=== PATIENT | male | born 1960 | race Caucasian/White ===

== ENCOUNTER 2019-03-07 11:25 | Outpatient (REF) | payer OTHER, SELFPAY | END 2019-03-07 11:45 | LOC: LBN 11:25 | PROVIDERS: PCP Emergency Medicine; Visit Provider Family Medicine | DX: N39.0 Urinary tract infection, site not specified (principal) | CPT/HCPCS: 87086 ==

== ENCOUNTER 2019-03-27 12:47 | Outpatient (CLI) | payer OTHER, SELFPAY ==
[2019-03-27 14:35] LABS: Anion Gap 8.6 mmol/L (3-11); BUN 24 mg/dL (7-18); CO2 27.4 mmol/L (21.0-32.0); CREATININE 1.44 mg/dL (0.70-1.30); Calcium 8.9 mg/dL (8.5-10.1); Chloride 106 mmol/L (98-107); Estimated GFR 50.39 (mL/min/1.73m2); Glucose 95 mg/dL (70-100); Potassium 4.5 mmol/L (3.5-5.1); Sodium 142 mmol/L (136-145); Uric Acid 8.7 mg/dL (3.5-7.2)
[2019-03-28 09:47] LABS: PSA, Screening 1.7 ng/ml (0-3.5)
== END 2019-03-27 13:07 ==
PROVIDERS: PCP Emergency Medicine; Visit Provider Emergency Medicine
DX: M10.9 Gout, unspecified (principal); Z12.5 Encounter for screening for malignant neoplasm of prostate
CPT/HCPCS: 36415; 80048; 84153; 84550

== ENCOUNTER 2019-06-18 14:55 | Emergency (ER) | payer OTHER, SELFPAY ==
[2019-06-18 15:01] VITALS: BP 176/86; PULSE 78; RESP 16; TEMP 37.2; O2SAT 99
--- NOTE | 2019-06-18 15:06 | ED.GENADUL_ITS ---
Discharge Plan Disposition Patient Disposition: HOME Condition: Stable Discharge Details Chief Complaint: SOB Clinical Impression: PINO (dyspnea on exertion) Primary Care Provider: Prince Murray ED Provider: Jae Caldera Home Meds and New Rx's Prescriptions: Continued lidocaine [Lidoderm] 5 % adhesive patch,medicated 1 patch TP DAILY RF: 0 magnesium chloride [Mag 64] 64 mg tablet,delayed release (DR/EC) 128 mg PO DAILY RF: 0 Men 50 Plus Multivitamin 300-600-300 mcg tablet 1 tab PO DAILY RF: 0 triamcinolone acetonide 0.025 % cream 1 applic TP BID RF: 0 sertraline 50 mg tablet 25 mg PO DAILY RF: 0 baclofen 10 mg tablet 10 mg PO HS Qty: 90 RF: 3 furosemide 20 mg tablet See Rx Instructions PO DIRECTED Qty: 135 RF: 4 omeprazole 20 mg capsule,delayed release(DR/EC) 20 mg PO DAILY Qty: 90 RF: 0 losartan 50 mg tablet 50 mg PO DAILY Qty: 90 RF: 3 amitriptyline 25 mg tablet 25 mg PO DAILY Qty: 90 RF: 3 indomethacin 50 mg capsule 50 mg PO TID PRN (Reason: gout) Qty: 30 RF: 1 carbidopa-levodopa 25-100 mg tablet 1 tab PO HS Qty: 90 RF: 3 hydromorphone 2 mg tablet 4 mg PO Q6H MDD 4 mg PRN (Reason: pain) Qty: 60 RF: 0 Discharge Instructions Instructions: Dyspnea (ED) Additional Instructions: your cat scan and lab work did not show any significant abnormalities follow up with your primary care provider within 1 week if you feel more ill, have worsening chest pain or difficulty breathing return to the emergency department Medical Decision Making 59 yo male with hx of htn, gout, peripheral neuropathy, who comes in with increased shortness of breath with exertion and some intermittent mild chest pressure, no chest pain now or today. Denies fevers, has had a cough. He arrives in no distress hd stable. Has mild edema of both ankles otherwise no jvd and speaking in full sentences with clear lung sounds . His wells score is moderate will obtain CTA to eval for PE and also pna. HEart score of 3, will send troponin and monitor pt's labs and imaging unremarkable and he remains hd stable. Given over a week of symptoms do not feel second troponin indicated. Will d/c and advised f/u with pcp within a week and return precautions given Differential Diagnosis Differential Diagnosis: nstemi, chf, pe, pna Imaging Data Radiologic Study: Attestation: I personally reviewed and interpreted this imaging study as follows: Imaging: CT Scan Radiologist's impression: TECHNIQUE: Post IV contrast. Axial CT angiography was performed with multi-slice acquisition and multi-planar and/or 3D reconstructions. COMPARISON: No exams were available for comparison FINDINGS: There is no evidence of pulmonary emboli or aortic dissection. No pleural or pericardial effusions or adenopathy are seen. The lungs are clear. No infiltrate or effusion is seen. There are no significant emphysematous or fibrotic changes. The tracheobronchial tree appears intact. There are no thoracic compression fractures. Osteophytes are noted in the thoracic spine. IMPRESSION: Negative chest CT. No evidence of pulmonary emboli or other acute abnormality. Lab Data Lab results reviewed: Yes I reviewed the patient's lab results. ECG Data Attestation: I personally reviewed and interpreted this ECG (s) as follows: Prior ECG tracings: not available for review Interpretation: sinus rhythm, rate of 80, pr 162, no acute st t wave ischemic findings HPI General Mode of arrival: ambulatory . Date/Time Provider Initiated Documentation: 06/18/19 15:00 . Limitations to Documentation: no limitations . Information obtained by: patient . History of Present Illness 59 year old M presents to the emergency department with the chief complaint of shortness of breath, described as moderate, and it has been intermittent. No relieving factors improve symptom(s), Patient did receive the following treatments prior to arrival, none Related Data Home Medications Medication Instructions Recorded Confirmed lidocaine 5 % topical patch 1 patch TP DAILY 03/21/18 06/18/19 magnesium chloride 64 mg 128 mg PO DAILY tab 03/21/18 06/18/19 (magnesium chloride) tablet,delayed release xnqjtezn-nta-bzqrl acid 300 1 tab PO DAILY 03/21/18 06/18/19 mcg-lycopene 600 mcg-lutein 300 mcg tablet triamcinolone acetonide 0.025 % 1 applic TP BID 03/21/18 06/18/19 topical cream baclofen 10 mg tablet 10 mg PO HS #90 tab 08/21/18 06/18/19 furosemide 20 mg tablet See Rx Instructions PO DIRECTED 10/23/18 06/18/19 #135 tab sertraline 50 mg tablet 25 mg PO DAILY tab 03/07/19 06/18/19 omeprazole 20 mg capsule,delayed 20 mg PO DAILY #90 cap 04/08/19 06/18/19 release amitriptyline 25 mg tablet 25 mg PO DAILY #90 tab 04/15/19 06/18/19 losartan 50 mg tablet 50 mg PO DAILY #90 tab 04/15/19 06/18/19 indomethacin 50 mg capsule 50 mg PO TID PRN #30 cap 05/26/19 06/18/19 carbidopa 25 mg-levodopa 100 mg 1 tab PO HS #90 tab 06/02/19 06/18/19 tablet hydromorphone 2 mg tablet 4 mg PO Q6H PRN #60 tab MDD 4 mg 06/17/19 06/18/19 Previous Rx's Medication Instructions Recorded baclofen 10 mg tablet 10 mg PO HS #90 tab 08/21/18 furosemide 20 mg tablet See Rx Instructions PO DIRECTED 10/23/18 #135 tab omeprazole 20 mg capsule,delayed 20 mg PO DAILY #90 cap 04/08/19 release amitriptyline 25 mg tablet 25 mg PO DAILY #90 tab 04/15/19 losartan 50 mg tablet 50 mg PO DAILY #90 tab 04/15/19 indomethacin 50 mg capsule 50 mg PO TID PRN #30 cap 05/26/19 carbidopa 25 mg-levodopa 100 mg 1 tab PO HS #90 tab 06/02/19 tablet hydromorphone 2 mg tablet 4 mg PO Q6H PRN #60 tab MDD 4 mg 06/17/19 Allergies Allergy/AdvReac Type Severity Reaction Status Date / Time amlodipine AdvReac Severe ANKLE/PEDAL Verified 06/18/19 15:05 EDEMA irbesartan [From Avapro] AdvReac Intermediate DIZZINESS Verified 06/18/19 15:05 metoprolol AdvReac Intermediate DIZZINESS Verified 06/18/19 15:05 lisinopril AdvReac Mild COUGH Verified 06/18/19 15:05 General Stated Complaint: SOB LANDON: 2 Review of Systems All systems reviewed & are unremarkable except as noted in HPI and below Constitutional Constitutional: Denies chills, Denies fever(s) and Denies weakness ENT Ears, Nose, Mouth, and Throat: Denies change in voice Respiratory Respiratory: Denies cough Gastrointestinal Gastrointestinal: Denies abdominal pain, Denies nausea and Denies vomiting Musculoskeletal Musculoskeletal: Denies joint swelling Neurologic Neurologic: Denies weakness [facility] Medical History (Updated 03/26/19 @ 16:09 by Prince Murray DO) Asymptomatic gallstones (Acute 08/30/16) Chronic inflammatory demyelinating polyneuritis (Acute) Chronic pain syndrome (Acute 06/20/12) Narcotic VPMS requirements and contract updated 01/09/17 Chronic rhinitis (Acute 06/26/16) Deviated nasal septum (Acute 06/26/16) Essential hypertension (Acute) Fatty liver disease, nonalcoholic (Acute 08/30/16) Gastroesophageal reflux disease with esophagitis (Acute) per EGD-Dr.K. Everett Gout (Chronic) Hereditary peripheral neuropathy (Acute) chronic inflammatory neuropathy see notes [facility] [place] Dr Jayda Alvarado chronic pain Low back pain (Acute) Obesity (Acute) RLS (restless legs syndrome) (Acute 12/10/15) Surgical History (Updated 01/21/19 @ 14:12 by Alejandra Quiroga) knee repair left Family History Mother No problems noted. Father No problems noted. Sister No problems noted. Brother No problems noted. Brother No problems noted. Brother No problems noted. Brother No problems noted. Brother No problems noted. Son No problems noted. Son No problems noted. Social History (Updated 03/21/18 @ 13:20 by Joe Duncan) Smoking/Tobacco Use Status: Never Alcohol Intake: current Alcohol Intake frequency: a few times a month Drug use: Daily Substance use type: marijuana Details: every night, Household members: spouse current occupation: airline reservation agent Duration: 15-30 minutes/day Frequency: daily Special sandra needs: No Exam Const General: no acute distress Orientation: alert HENSD Head: normal to inspection Ears: external ears normal General nose exam: external nose normal Mouth: moist mucous membranes Eyes General: appearance normal, both eyes and all related structures Neck Neck: normal visual inspection Resp Effort & Inspection: normal respiratory effort and able to speak in complete sentences Cardio Rate: regular rate Skin General skin exam: no rashes or lesions noted Neuro General: alert and oriented x3 Extrem General: normal to inspection Psych Mental Status: mental status grossly normal Course Vital Signs Vital signs: Vital Signs Temperature 37.2 C 06/18/19 15:01 Pulse 78 06/18/19 15:01 Respiratory Rate 16 06/18/19 15:01 Blood Pressure 176/86 H 06/18/19 15:01 Pulse Oximetry 99 06/18/19 15:01 Temperature 37.2 C 06/18/19 15:01 Temperature Source Skin 06/18/19 15:01 Pulse 78 06/18/19 15:01 Respiratory Rate 16 06/18/19 15:01 Respiratory Effort Non-Labored 06/18/19 15:01 Blood Pressure 176/86 H 06/18/19 15:01 Blood Pressure Position Sitting 06/18/19 15:01 Pulse Oximetry 99 06/18/19 15:01 Oxygen Delivery Method Room Air 06/18/19 15:01 Oxygen Flow Rate 0 06/18/19 15:01 Pain Level 0 06/18/19 15:01
[2019-06-18 15:27] LABS: Lactate 1.4 mmol/L (0.6-1.4)
[2019-06-18] MEDS: Omnipaque 350 MG/ML 100 ML BTL IJ (15:31)
[2019-06-18] MEDS: Normal Saline Flush 10 ML SYR IVP (15:31)
[2019-06-18 15:32] LABS: Abs Immature Grans 0.02 k/cumm (0.0-0.09); Absolute Basophil Count 0.06 k/cumm (0.0-0.2); Absolute Eosinophil Count 0.11 k/cumm (0.0-0.7); Absolute Lymphocyte Count 1.78 k/cumm (1.2-3.4); Absolute Neutrophil Count 4.03 k/cumm (1.2-6.7); Basophils % 0.9; Eosinophils % 1.7; HCT 40.5 % (40.0-50.0); HGB 13.5 g/dL (13.5-17.5); Immature Grans % 0.3; Lymphocytes % 27.4; Mean Corp. HGB Concentration 33.3 g/dL (32.0-36.0); Mean Corpuscular Hemoglobin 31.8 pg (27.0-33.0); Mean Corpuscular Volume 95.3 fL (80-95); Mean Platelet Volume 9.1 fL (8.0-11.0); Monocytes % 7.7; Platelet Count 226 x1000/uL (130-400); RBC 4.25 m/cumm (4.50-6.00); RBC Distribution Width 13.5 % (11.8-14.1)
[2019-06-18 15:41] LABS: PTT Activated 25.4 sec (21.0-31.4); Prothrombin Time 9.9 sec (9.3-11.0)
--- NOTE | 2019-06-18 15:42 | DI.CT_ITS ---
EXAM: CT CHEST PE CTA CLINICAL HISTORY: shortness of breath TECHNIQUE: Post IV contrast. Axial CT angiography was performed with multi-slice acquisition and mu lti-planar and/or 3D reconstructions. COMPARISON: No exams were available for comparison FINDINGS: There is no evidence of pulmonary emboli or aortic dissection. No pleural or pericardial effusions o r adenopathy are seen. The lungs are clear. No infiltrate or effusion is seen. There are no signifi cant emphysematous or fibrotic changes. The tracheobronchial tree appears intact. There are no thor acic compression fractures. Osteophytes are noted in the thoracic spine. IMPRESSION: Negative chest CT. No evidence of pulmonary emboli or other acute abnormality.
[2019-06-18 16:10] LABS: ALT 34 U/L (16-63); AST 20 U/L (15-37); Alkaline Phosphatase 94 U/L (46-116); Anion Gap 10.2 mmol/L (3-11); BUN 18 mg/dL (7-18); Bilirubin, Total 0.4 mg/dL (0.2-1.0); CO2 27.8 mmol/L (21.0-32.0); Calcium 9.3 mg/dL (8.5-10.1); Chloride 103 mmol/L (98-107); Estimated GFR 51.87 (mL/min/1.73m2); Glucose 99 mg/dL (74-106); Magnesium 1.9 mg/dL (1.8-2.4); NT-proBNP 96 pg/mL (<300); Potassium 4.2 mmol/L (3.5-5.1); Sodium 141 mmol/L (136-145); TSH (W/Ref FT4) 2.23 uIU/mL (0.36-3.74); Total Protein 7.8 g/dL (6.4-8.2)
[2019-06-18 16:15] LABS: Troponin I < 0.05 ng/Ml (<0.06)
--- NOTE | 2019-06-18 17:18 | NUR.NOTE ---
Nursing Note: Referral faxed to PCP for follow up. Zaida Mcnair.
== END 2019-06-18 16:35 | disposition home or self-care (01) ==
PROVIDERS: Emergency Provider Emergency Medicine; PCP Emergency Medicine
DX: R06.09 Other forms of dyspnea (principal); I10 Essential (primary) hypertension
CPT/HCPCS: 36415; 71275; 80053; 87449; 93005; 99285; 83605; 83735; 83880; 84443; 84484; 85025; 85610; 85730; 93010; 99284; J3490

== ENCOUNTER 2019-06-25 01:37 | Outpatient (CLI) | payer OTHER, SELFPAY ==
[2019-06-25 14:24] LABS: ESR 19 mm/hr (1-20)
[2019-06-25 14:25] LABS: D-Dimer 569 ng/mlFEU (<500)
[2019-06-25 14:30] LABS: C-Reactive Protein 0.92 mg/dL (0.0-0.3)
[2019-06-28 12:00] LABS: Testosterone, Free 7.17 ng/dL (3.87-14.7); Testosterone, Total 224 ng/dL (240-950)
== END 2019-06-25 01:57 ==
PROVIDERS: PCP Emergency Medicine; Visit Provider Emergency Medicine
DX: R53.83 Other fatigue (principal); R06.09 Other forms of dyspnea
CPT/HCPCS: 36415; 84402; 84403; 85652; 85379; 86140

== ENCOUNTER 2019-06-25 13:07 | Outpatient (CLI) | payer OTHER, SELFPAY | END 2019-06-25 13:27 | PROVIDERS: PCP Emergency Medicine; Visit Provider Emergency Medicine | DX: R06.09 Other forms of dyspnea (principal); I47.1 Supraventricular tachycardia; I49.3 Ventricular premature depolarization | CPT/HCPCS: 93225 ==

== ENCOUNTER 2019-06-27 09:08 | Outpatient (CLI) | payer OTHER, SELFPAY ==
--- NOTE | 2019-06-27 09:49 | W.HOLTRPT ---
Date of service: 06/27/19 Time of Service: 09:49 Holter Monitor Report Holter Monitor Note: This is a 24-hour Holter monitor ordered for the indication of dyspnea. ?The patient was in normal sinus rhythm for the majority of the recording time. ?There was one episode of supraventricular tachycardia that lasted 3 beats. There were rare (less than 1%) premature atrial contractions. ?There were 87 episodes of ventricular tachycardia with the longest lasting 24 beats. ?There were 13 runs of accelerated idioventricular rhythm with the longest lasting 21 beats at a rate of 165 bpm. ?There were occasional (2.4%) single ventricular ectopic beats and multiple couplets and triplets. ?There were no episodes of atrial fibrillation, no pauses greater than 3 seconds and no evidence of high degree heart block. ?Patient diary event was associated with a single PVC.
== END 2019-06-27 09:28 ==
PROVIDERS: PCP Emergency Medicine; Visit Provider Emergency Medicine
DX: R06.09 Other forms of dyspnea (principal); I47.1 Supraventricular tachycardia; I49.3 Ventricular premature depolarization
CPT/HCPCS: 93226

== ENCOUNTER 2019-06-27 14:09 | Emergency (ER) | payer OTHER, SELFPAY ==
[2019-06-27] VITALS (57 sets, daily range): BP systolic 128–172; BP diastolic 72–106; PULSE 64–88; RESP 10–24; TEMP 36.7; O2SAT 97–100
--- NOTE | 2019-06-27 14:59 | ED.GENADUL_ITS ---
Discharge Plan Disposition Patient Disposition: HOME Condition: Stable Discharge Details Chief Complaint: Palpitatns Clinical Impression: PINO (dyspnea on exertion) Primary Care Provider: Prince Murray ED Provider: Jae Caldera Home Meds and New Rx's Prescriptions: Continued lidocaine [Lidoderm] 5 % adhesive patch,medicated 1 patch TP DAILY RF: 0 magnesium chloride [Mag 64] 64 mg tablet,delayed release (DR/EC) 128 mg PO DAILY RF: 0 Men 50 Plus Multivitamin 300-600-300 mcg tablet 1 tab PO DAILY RF: 0 triamcinolone acetonide 0.025 % cream 1 applic TP BID RF: 0 sertraline 50 mg tablet 25 mg PO DAILY RF: 0 baclofen 10 mg tablet 10 mg PO HS Qty: 90 RF: 3 furosemide 20 mg tablet See Rx Instructions PO DIRECTED Qty: 135 RF: 4 omeprazole 20 mg capsule,delayed release(DR/EC) 20 mg PO DAILY Qty: 90 RF: 0 losartan 50 mg tablet 50 mg PO DAILY Qty: 90 RF: 3 amitriptyline 25 mg tablet 25 mg PO DAILY Qty: 90 RF: 3 indomethacin 50 mg capsule 50 mg PO TID PRN (Reason: gout) Qty: 30 RF: 1 carbidopa-levodopa 25-100 mg tablet 1 tab PO HS Qty: 90 RF: 3 hydromorphone 2 mg tablet 4 mg PO Q6H MDD 4 mg PRN (Reason: pain) Qty: 60 RF: 0 Discharge Instructions Additional Instructions: We have ordered an outpatient stress test as we discussed. Dr. Murray has plans to see you in the office on Sunday. Continue all regular medications. Avoid strenuous activity as we discussed. Return to the emergency department if develop chest pain, recurrent difficulty breathing, palpitations, lightheadedness, or any other acute concerns. Discharge Data Discharge Date/Time-TO BE ENTERED AT DEPARTURE: 06/27/19 20:50 Medical Decision Making <Sudhakar Adams MD - Last Filed: 06/28/19 08:08> 59-year-old male who was referred by Dr. Murray. The patient's had greater than 1 month of intermittent episodes of dyspnea on exertion. This initially resulted in an emergency department evaluation on June [address] scan of the chest and a normal troponin. Patient separately had an outpatient Holter monitor on June 27 which revealed 87 episodes of nonsustained ventricular tachycardia and 13 episodes of accelerated idioventricular rhythm. Dr. Murray discussed the case with Dr. Reyes of cardiology, and the recommendation for an ischemic work-up including probable stress test. I also discussed the case with Dr. Reyes who stated that if the ischemic work-up was negative, the patient would be a good candidate for initiation of an AV thor blocking agent. He did not feel the patient required mandated admission this weekend if the ED work-up was negative. I did discuss the case also with Dr. Salazar of [facility]. She feels the patient is best served by serial enzymes in the ED and referral for outpatient stress testing. Currently at this time he is chest pain-free, no dyspnea, with unremarkable vital signs. He remains in a sinus rhythm on the monitor in the emergency department. Diagnostic work-up initiated. His CBC reveals a white count of 7, hematocrit 42, platelets 248. Sodium 142, potassium 3.9, chloride 104, bicarb 29. BUN 19, creatinine 1.3. Troponin is negative. Magnesium slightly low at 1.7 and supplemented in the emergency department. Chest x-ray without acute pulmonary findings. Patient observed on a quality assurance monitor chassis and repeat troponin obtained at 3 hrs and negative. Will obtain 6 hr troponin and case will be signed out to oncoming physician, Dr Caldera pending review of final lab test. I have ordered the patients stress test with specific request for Sunday scheduling as Dr Murray will see him in the office on Sunday. <Jae Caldera MD - Last Filed: 06/27/19 20:42> pt signed out to me pending 6 hour troponin which is negative. Will d/c home and is having outpt stress test next week, denies any pain now HPI <Sudhakar Adams MD - Last Filed: 06/28/19 08:08> General Mode of arrival: ambulatory . Date/Time Provider Initiated Documentation: 06/27/19 14:16 . Limitations to Documentation: no limitations . Information obtained by: patient . History of Present Illness 59 year old M presents to the emergency department with the chief complaint of Abnormal Holter monitor, intermittent dyspnea on exertion for > 1 month, described as moderate, Quality is described as dull, and is localized to the chest. Patient reports no radiation. Patient started experiencing this minute(s) and it has been intermittent and now resolved. No relieving factors improve symptom(s), No exacerbating factors reported . Patient notes shortness of breath; denies chest pain and syncope. Patient did receive the following treatments prior to arrival, none Related Data Home Medications Medication Instructions Recorded Confirmed lidocaine 5 % topical patch 1 patch TP DAILY 03/21/18 06/27/19 magnesium chloride 64 mg 128 mg PO DAILY tab 03/21/18 06/27/19 (magnesium chloride) tablet,delayed release mzkzyvwi-soj-uruuy acid 300 1 tab PO DAILY 03/21/18 06/27/19 mcg-lycopene 600 mcg-lutein 300 mcg tablet triamcinolone acetonide 0.025 % 1 applic TP BID 03/21/18 06/24/19 topical cream baclofen 10 mg tablet 10 mg PO HS #90 tab 08/21/18 06/27/19 furosemide 20 mg tablet See Rx Instructions PO DIRECTED 10/23/18 06/27/19 #135 tab sertraline 50 mg tablet 25 mg PO DAILY tab 03/07/19 06/24/19 omeprazole 20 mg capsule,delayed 20 mg PO DAILY #90 cap 04/08/19 06/24/19 release amitriptyline 25 mg tablet 25 mg PO DAILY #90 tab 04/15/19 06/27/19 losartan 50 mg tablet 50 mg PO DAILY #90 tab 04/15/19 06/27/19 indomethacin 50 mg capsule 50 mg PO TID PRN #30 cap 05/26/19 06/27/19 carbidopa 25 mg-levodopa 100 mg 1 tab PO HS #90 tab 06/02/19 06/27/19 tablet hydromorphone 2 mg tablet 4 mg PO Q6H PRN #60 tab MDD 4 mg 06/17/19 06/27/19 Previous Rx's Medication Instructions Recorded baclofen 10 mg tablet 10 mg PO HS #90 tab 08/21/18 furosemide 20 mg tablet See Rx Instructions PO DIRECTED 10/23/18 #135 tab omeprazole 20 mg capsule,delayed 20 mg PO DAILY #90 cap 04/08/19 release amitriptyline 25 mg tablet 25 mg PO DAILY #90 tab 04/15/19 losartan 50 mg tablet 50 mg PO DAILY #90 tab 04/15/19 indomethacin 50 mg capsule 50 mg PO TID PRN #30 cap 05/26/19 carbidopa 25 mg-levodopa 100 mg 1 tab PO HS #90 tab 06/02/19 tablet hydromorphone 2 mg tablet 4 mg PO Q6H PRN #60 tab MDD 4 mg 06/17/19 Allergies Allergy/AdvReac Type Severity Reaction Status Date / Time amlodipine AdvReac Severe ANKLE/PEDAL Verified 06/27/19 14:17 EDEMA irbesartan [From Avapro] AdvReac Intermediate DIZZINESS Verified 06/27/19 14:17 metoprolol AdvReac Intermediate DIZZINESS Verified 06/27/19 14:17 lisinopril AdvReac Mild COUGH Verified 06/27/19 14:17 General Stated Complaint: Palpitatns LANDON: 3 Review of Systems <Sudhakar Adams MD - Last Filed: 06/28/19 08:08> Narrative: No fall or injury, denies chest pain. No palpitations today. He states that he has otherwise been well. 6 systems reviewed and otherwise negative. PFSH <Sudhakar Adams MD - Last Filed: 06/28/19 08:08> Medical History Asymptomatic gallstones (Acute 08/30/16) Chronic inflammatory demyelinating polyneuritis (Acute) Chronic pain syndrome (Acute 06/20/12) Narcotic VPMS requirements and contract updated 01/09/17 Chronic rhinitis (Acute 06/26/16) Deviated nasal septum (Acute 06/26/16) Essential hypertension (Acute) Fatty liver disease, nonalcoholic (Acute 08/30/16) Gastroesophageal reflux disease with esophagitis (Acute) per EGD-Dr.K. Everett Gout (Chronic) Hereditary peripheral neuropathy (Acute) chronic inflammatory neuropathy see notes [facility] [place] Jayda Alvarado chronic pain Low back pain (Acute) Obesity (Acute) RLS (restless legs syndrome) (Acute 12/10/15) Surgical History knee repair left Family History Mother No problems noted. Father No problems noted. Sister No problems noted. Brother No problems noted. Brother No problems noted. Brother No problems noted. Brother No problems noted. Brother No problems noted. Son No problems noted. Son No problems noted. Social History (Updated 03/21/18 @ 13:20 by Joe Duncan) Smoking/Tobacco Use Status: Never Alcohol Intake: current Alcohol Intake frequency: a few times a month Drug use: Daily Substance use type: marijuana Details: every night, Household members: spouse current occupation: ramp service agent Duration: 15-30 minutes/day Frequency: daily Special sandra needs: No Do you feel safe at home: Yes Do you feel safe in your relationship?: Yes Exam <Sudhakar Adams MD - Last Filed: 06/28/19 08:08> Narrative Exam Narrative: GEN: awake, alert, oriented 3. Pleasant, well groomed, interactive. HEAD: Normocephalic, atraumatic ENT: Mucous membranes moist, oropharynx unremarkable, External ear exam unremarkable EYES: PERRL, EOMI NECK: Full ROM, no BRET, no menigismus CHEST/RESP: Nontender, clear to auscultation bilateral, no wheeze/rhonchi/rales CARDIOVASCULAR: RRR, question soft blowing systolic murmur, rub eri. 2+ Rad pulse bilateral ABDOMEN: Soft, nontender, no mass. +Bowel sounds EXT: Full ROM, no edema, no rash Neuro: Grossly normal neurologic exam, conversant, interactive. Psych: Speech fluent, thoughts congruent, affect normal Course <Sudhakar Adams MD - Last Filed: 06/28/19 08:08> Vital Signs Vital signs: Vital Signs Pulse 88 06/27/19 14:12 Respiratory Rate 18 06/27/19 14:12 Pulse 76 06/27/19 14:19 Pulse 78 06/27/19 14:20 Respiratory Rate 18 06/27/19 14:20 Respiratory Effort 06/27/19 14:16 Blood Pressure 143/89 H 06/27/19 14:19 Blood Pressure Mean 100 06/27/19 14:19 Blood Pressure Position Supine 06/27/19 14:12 Pulse Oximetry 99 06/27/19 14:20 Oxygen Delivery Method Room Air 06/27/19 14:12 Oxygen Flow Rate 0 06/27/19 14:12 Pain Level 0 06/27/19 14:12 Sign Out <Sudhakar Adams MD - Last Filed: 06/28/19 08:08> Sign Out Data: Sign Out Comment: Followup 6hr troponin Last updated by Sudhakar Adams MD at 06/27/19 19:12
[2019-06-27] MEDS: Normal Saline 1,000 ML 125 ML IV (15:05)
[2019-06-27 15:09] LABS: Abs Immature Grans 0.02 k/cumm (0.0-0.09); Absolute Basophil Count 0.04 k/cumm (0.0-0.2); Absolute Eosinophil Count 0.13 k/cumm (0.0-0.7); Absolute Lymphocyte Count 1.93 k/cumm (1.2-3.4); Absolute Monocyte Count 0.51 k/cumm (0.11-0.7); Absolute Neutrophil Count 5.08 k/cumm (1.2-6.7); Basophils % 0.5; Eosinophils % 1.7; HCT 42.3 % (40.0-50.0); Immature Grans % 0.3; Mean Corp. HGB Concentration 33.1 g/dL (32.0-36.0); Mean Corpuscular Hemoglobin 31.6 pg (27.0-33.0); Mean Corpuscular Volume 95.5 fL (80-95); Mean Platelet Volume 9.3 fL (8.0-11.0); Monocytes % 6.6; Neutrophils % 65.9; Platelet Count 248 x1000/uL (130-400); RBC 4.43 m/cumm (4.50-6.00); RBC Distribution Width 13.5 % (11.8-14.1); White Blood Cell Count 7.71 k/cumm (4.4-10.8)
[2019-06-27 15:27] LABS: ALT 37 U/L (16-63); AST 21 U/L (15-37); Albumin 4.1 g/dL (3.4-5.0); Alkaline Phosphatase 93 U/L (46-116); Anion Gap 8.5 mmol/L (3-11); BUN 19 mg/dL (7-18); Bilirubin, Total 0.3 mg/dL (0.2-1.0); CO2 29.5 mmol/L (21.0-32.0); CREATININE 1.38 mg/dL (0.70-1.30); Calcium 9.2 mg/dL (8.5-10.1); Chloride 104 mmol/L (98-107); Estimated GFR 52.74 (mL/min/1.73m2); Glucose 91 mg/dL (74-106); Magnesium 1.7 mg/dL (1.8-2.4); Potassium 3.9 mmol/L (3.5-5.1); Sodium 142 mmol/L (136-145); Total Protein 7.9 g/dL (6.4-8.2)
[2019-06-27 15:35] LABS: Troponin I < 0.05 ng/Ml (<0.06)
--- NOTE | 2019-06-27 15:38 | DI.RAD_ITS ---
EXAM: XR CHEST 2V PA LATERAL CLINICAL HISTORY: palpitations. TECHNIQUE: 2D digital imaging was performed. COMPARISON: CHEST 2 VIEWS PA,LAT from 11/12/2016 FINDINGS: LUNGS: Clear. No pleural abnormality seen. HEART: Normal. MEDIASTINUM: Normal. OTHER FINDINGS:Normal. IMPRESSION: No acute pulmonary findings.
[2019-06-27] MEDS: MAGNESIUM SULFATE 2 GM/50 ML BAG IVPB (16:20)
[2019-06-27 17:59] LABS: Troponin I < 0.05 ng/Ml (<0.06)
[2019-06-27 20:21] LABS: Troponin I < 0.05 ng/Ml (<0.06)
== END 2019-06-27 20:50 | disposition home or self-care (01) ==
PROVIDERS: Emergency Medicine; Emergency Provider Emergency Medicine; PCP Emergency Medicine
DX: R06.09 Other forms of dyspnea (principal); I47.2 Ventricular tachycardia; I10 Essential (primary) hypertension
CPT/HCPCS: 80053; 93005; 96365; 96366; 99285; 71046; 83735; 84484; 85025; 93010

== ENCOUNTER 2019-07-21 08:15 | Outpatient (CLI) | payer OTHER, SELFPAY | END 2019-07-21 08:35 | PROVIDERS: PCP Emergency Medicine; Visit Provider Emergency Medicine | DX: I47.1 Supraventricular tachycardia (principal); I49.1 Atrial premature depolarization | CPT/HCPCS: 93225 ==

== ENCOUNTER 2019-07-22 10:13 | Outpatient (CLI) | payer OTHER, SELFPAY ==
--- NOTE | 2019-07-24 10:03 | W.HOLTRPT ---
Date of service: 07/24/19 Time of Service: 10:03 Holter Monitor Report Holter Monitor Note: This is a 24-hour Holter monitor ordered for the indication of SVT. ?Patient was in normal sinus rhythm for the majority of the recording. ?There were 0 episodes of SVT recorded and rare (less than 1%) premature atrial contractions. ?There were 2 episodes of what appears to be ventricular tachycardia versus SVT with bundle branch block with the longest lasting 5 beats at a rate of 130. ?There were occasional (1.1%) single ventricular ectopic beats and 2 couplets. ?There were no episodes of atrial fibrillation, no pauses greater than 3 seconds and no evidence of high degree heart block. ?Compared to remote monitor from 1 month ago, the degree of ectopy has significantly decreased.
== END 2019-07-22 10:33 ==
PROVIDERS: PCP Emergency Medicine; Visit Provider Emergency Medicine
DX: I47.1 Supraventricular tachycardia (principal); I49.1 Atrial premature depolarization
CPT/HCPCS: 93226

== ENCOUNTER 2019-08-04 01:14 | Outpatient (CLI) | payer OTHER, SELFPAY ==
[2019-08-04 07:42] LABS: Bilirubin Small (Negative); Blood Negative (Negative); Clarity Sl Cloudy (Clear); Glucose Negative (Negative); Ketones Negative (Negative); Leukocyte Esterase Negative (Negative); Nitrite Negative (Negative); Specific Gravity 1.025 (1.005-1.025); Urobilinogen 0.2 EU/dL (Up TO 0.2)
[2019-08-04 07:54] LABS: Hemoglobin A1C 5.1 % (3.8-5.6)
[2019-08-04 07:57] LABS: Bacteria Moderate HPF (Negative); Crystals Negative HPF (Negative); Epithelial Cells Many HPF (Negative); Mucus Trace (Negative); RBC 0-2 HPF (0-2); WBC 0-2 HPF (0-5)
[2019-08-04 07:58] LABS: C & S Indicated? No/Sq. Contamination; Casts 3-5 Hyaline LPF (Negative)
[2019-08-04 08:52] LABS: BUN 24 mg/dL (7-18); CREATININE 1.52 mg/dL (0.70-1.30); Calcium 9.7 mg/dL (8.5-10.1); Chloride 105 mmol/L (98-107); Estimated GFR 47.17 (mL/min/1.73m2); Glucose 91 mg/dL (74-106); Magnesium 1.9 mg/dL (1.8-2.4); Potassium 4.4 mmol/L (3.5-5.1); Sodium 144 mmol/L (136-145)
[2019-08-05 11:00] LABS: PSA, Screening 1.7 ng/mL (0.0-3.5)
== END 2019-08-04 01:34 ==
PROVIDERS: PCP Emergency Medicine; Visit Provider Emergency Medicine
DX: I10 Essential (primary) hypertension (principal); R35.0 Frequency of micturition; R30.0 Dysuria; Z12.5 Encounter for screening for malignant neoplasm of prostate
CPT/HCPCS: 36415; 80048; 84153; 81003; 81015; 83036; 83735

== ENCOUNTER 2019-08-19 08:38 | Outpatient (CLI) | payer OTHER, SELFPAY | END 2019-08-19 08:58 | PROVIDERS: PCP Emergency Medicine; Visit Provider Internal Medicine Cardiovascular Disease | DX: I47.1 Supraventricular tachycardia (principal); I10 Essential (primary) hypertension | CPT/HCPCS: 93005; 93010 ==

== ENCOUNTER 2020-01-30 03:57 | Outpatient (CLI) | payer OTHER, SELFPAY | END 2020-01-30 04:17 | PROVIDERS: PCP Emergency Medicine; Visit Provider Emergency Medicine | DX: R10.9 Unspecified abdominal pain (principal) | CPT/HCPCS: 93225 ==

== ENCOUNTER 2020-02-02 02:23 | Outpatient (CLI) | payer OTHER, SELFPAY ==
[2020-02-02 09:33] LABS: Abs Immature Grans 0.01 k/cumm (0.0-0.09); Absolute Basophil Count 0.02 k/cumm (0.0-0.2); Absolute Eosinophil Count 0.13 k/cumm (0.0-0.7); Absolute Lymphocyte Count 1.18 k/cumm (1.2-3.4); Absolute Monocyte Count 0.31 k/cumm (0.11-0.7); Absolute Neutrophil Count 4.18 k/cumm (1.2-6.7); Basophils % 0.3; Eosinophils % 2.2; HCT 39.3 % (40.0-50.0); Immature Grans % 0.2 %; Lymphocytes % 20.2; Mean Corp. HGB Concentration 33.1 g/dL (32.0-36.0); Mean Corpuscular Hemoglobin 31.6 pg (27.0-33.0); Mean Corpuscular Volume 95.6 fL (80-95); Mean Platelet Volume 9.7 fL (8.0-11.0); Monocytes % 5.3; Neutrophils % 71.8; Platelet Count 196 x1000/uL (130-400); RBC 4.11 m/cumm (4.50-6.00); RBC Distribution Width 13.5 % (11.8-14.1); White Blood Cell Count 5.83 k/cumm (4.4-10.8)
[2020-02-02 09:45] LABS: Amylase 34 U/L (25-115); C-Reactive Protein 1.05 mg/dL (0.0-0.3); Lipase 97 U/L (73-393)
== END 2020-02-02 02:43 ==
PROVIDERS: PCP Emergency Medicine; Visit Provider Emergency Medicine
DX: R10.9 Unspecified abdominal pain (principal)
CPT/HCPCS: 36415; 83690; 82150; 85025; 86140

== ENCOUNTER 2020-02-02 11:50 | Outpatient (CLI) | payer OTHER, SELFPAY ==
--- NOTE | 2020-02-02 14:48 | W.HOLTRPT ---
Date of service: 02/02/20 Time of Service: 14:48 Holter Monitor Report Referring Provider:: Trevor Indications:: NSVT Holter Monitor Note: There is a 24-hour Holter monitor ordered for indication of NSVT. ?The patient was in normal sinus rhythm for the majority recording with a mean heart rate of 61 bpm. ?There were 0 episodes of SVT and rare PACs. ?There are no episodes of VT and rare (0.5%) single ventricular ectopic beats. ?There were no episodes of atrial fibrillation, no pauses in 3 seconds and no evidence of high degree heart block. ?Patient diary events were associated with sinus rhythm, sinus tachycardia and PVCs
== END 2020-02-02 12:10 ==
PROVIDERS: PCP Emergency Medicine; Visit Provider Emergency Medicine
DX: I47.1 Supraventricular tachycardia (principal); I49.3 Ventricular premature depolarization; I49.1 Atrial premature depolarization
CPT/HCPCS: 93226

== ENCOUNTER 2020-02-05 00:07 | Outpatient (CLI) | payer OTHER, SELFPAY ==
--- NOTE | 2020-02-05 07:45 | DI.US_ITS ---
EXAM: US ABDOMEN CLINICAL HISTORY: abd AND EPIGASTRIC PAIN,R10.13 TECHNIQUE: Ultrasound abdomen performed using standard protocol. COMPARISON: CT CT CHEST PE CTA from 06/18/2019 FINDINGS: ABDOMINAL AORTA AND IVC: Visualized portions normal caliber. PANCREAS: Normal where visualized. LIVER: Diffuse increased echogenicity consistent with fatty infiltration. Hepatopedal flow in the Po rtal Vein. 16.3 cm in length. GALLBLADDER: Cholelithiasis. No evidence of wall thickening. No pericholecystic fluid identified. BILIARY SYSTEM: Common bile duct measures 3.5 mm. No intrahepatic biliary ductal dilation. CUENCA'S SIGN: Negative. KIDNEYS: Kidneys are symmetric in size. No evidence of renal calculi. No evidence of hydronephrosis. Focal prominence of the mid right renal cortex. Underlying mass cannot be excluded. The area in que stion measures 4 cm x 2.8 cm. SPLEEN: Not enlarged. 12.5 cm in length. ASCITES: None seen. IMPRESSION: 1. Focal cortical prominence seen in the mid right kidney. This may represent normal renal tissue bu t underlying mass should be excluded. CT scan of the abdomen with contrast should be considered for further evaluation. 2. Hepatic steatosis. 3. Cholelithiasis. No biliary ductal dilatation. DATA REPOSITORY:
--- NOTE | 2020-02-05 08:00 | DI.NM_ITS ---
APPROVED REPORT Exam: Pharmacologic Patient Location: Out-Patient Room/Bed: Stress Nurse: Mia Seals RN BMI: 33.47 Baseline Rhythm: Sinus Bradycardia Indications: Chest pain. Presyncope. PSVT. Medical History Medical History: PSVT. Aortic Stenosis. Allergies: Lisinopril. Amlodipine. Amitriptyline. Baclofen. Avapro. Cardiac Risk Factors: HTN, Hyperlipidemia, FHX of CAD Exercise History: Indeterminate Physical Disabilities: Legs Lung Sounds: Clear to auscultation Heart Sounds: Regular Stress Test Details Test: Pharmacologic stress testing performed using 0.4 mg of regadenoson per 5 mL given IV over 10 s econds. Nuclear Acquisition: Rest Tc-99m/Stress Tc-99m 1 day Rest Isotope: Tc-99m Sestamibi. Dose: 14.0 Date: 02/05/2020 Injection Time: 1040 Stress Isotope: Tc-99m Sestamibi. Dose: 44.0 Date: 02/05/2020 Injection Time: 1200 HR Resting HR Supine: 53 bpm Max Heart Rate (APMHR): 161 bpm Target HR (85% APMHR): 136 bpm Recovery HR: 62 bpm BP Resting BP Supine: 138/64 mmHg Recovery BP: 130/68 mmHg ECG Resting ECG: Sinus Bradycardia Stress ECG: Sinus Rhythm ST Change: None. Arrhythmia: None Recovery ECG: Sinus Rhythm Recovery ST Change: None. Recovery Arrhythmia: None Stress ECG Conclusion 1. There is a pharmacological stress test. Patient no symptoms suggestive of ischemia. 2. The EKG portion of this exam is non-diagnostic. Stress Test Summary STAGE HR BP Symptoms NOTES Supine 53 138/64 1 min post Lexiscan injection 71 128/60 3 min post Lexiscan injection 65 130/62 6 min post Lexiscan injection 62 130/68 MPI Conclusion The patient's ejection fraction was 54% with stress. There were no wall motion abnormalities. Significant bowel attenuation decreases sensitivity of this exam but there does not appear to be any evidence of ischemia. Radiologist Interpretation Radiologist Interpretation by: George Dyer MD Interpretation Date/Time: 02/06/2020 08:39:18
[2020-02-05] MEDS: Regadenoson 0.4 MG/5 ML SYR IVP (11:58)
== END 2020-02-05 00:27 ==
PROVIDERS: PCP Emergency Medicine; Visit Provider Emergency Medicine
DX: R10.13 Epigastric pain (principal); R07.9 Chest pain, unspecified; R55 Syncope and collapse; I47.1 Supraventricular tachycardia
CPT/HCPCS: 78452; 76700; 93017; J2785

== ENCOUNTER 2020-02-13 03:18 | Outpatient (CLI) | payer OTHER, SELFPAY ==
--- NOTE | 2020-02-13 06:30 | DI.CT_ITS ---
EXAM: CT ABDOMEN PELVIS W CLINICAL HISTORY: abnormal kidney on US, F/U ABNL US,R93.89. TECHNIQUE: Imaging Protocol: Axial computed tomography images with coronal and sagittal reformatted images were created and reviewed CONTRAST MATERIAL: Intravenous: Omnipaque 350 Contrast volume:100 ml Oral: yes / COMPARISON: US US ABDOMEN from 02/05/2020which questioned focal cortical prominence in the mid right kidney. FINDINGS: ABDOMEN: Lung Bases: Normal where visualized. Liver: Mild fatty infiltration.. No measurable mass. Gallbladder and biliary tract: No biliary dilation. A few small stones are seen in the dependent por tion. No wall thickening or abnormal distention. Pancreas: Normal density, no abnormal calcifications or inflammatory process. Spleen: Normal. Kidneys: Normal size and axis. No radiodense stones or obstructive uropathy. No masses seen. The kid neys have lobulated contour which could indicate congenital lobulation. Adrenal glands: No masses seen. Abdominal Aorta: Abdominal portion non-dilated. PELVIS: Bladder: Symmetric distention, no gross wall thickening. Bowel: No obstruction or bowel wall thickening. Mild sigmoid diverticulosis. Normal quantity of st ool. Peritoneal cavity: No ascites, collection or mesenteric inflammatory response. Bones: Degenerative changes in the spine. Reproductive organs: Within normal limits. Lymph nodes: Unremarkable. Impression: Lobulated renal contour bilaterally. No evidence of mass. Hepatic steatosis and cholelithiasis are noted. RADIATION DOSE DELIVERED: 1,109.43mGy.cm Total DLP DATA REPOSITORY: All CT scans at this facility are submitted to the National Radiology Data Registry (NRDR) Dose Index Registry (DIR) with the [employer] (ACR). RADIATION OPTIMIZATION: All CT scans at this facility use at least one of these dose optimization te chniques: automated exposure control; mA and/or kV adjustment per patient size (includes targeted exa ms where dose is matched to clinical indication); or iterative reconstruction.
[2020-02-13] MEDS: Omnipaque 350 MG/ML 50 ML BTL IJ (08:56)
[2020-02-13] MEDS: Breeza Beverage 473 ML BTL PO ×3 (08:57→08:58)
[2020-02-13] MEDS: Omnipaque 350 MG/ML 100 ML BTL IJ (09:43)
== END 2020-02-13 03:38 ==
PROVIDERS: PCP Emergency Medicine; Visit Provider Emergency Medicine
DX: R93.89 Abnormal findings on diagnostic imaging of other specified body structures (principal); N28.89 Other specified disorders of kidney and ureter; K76.0 Fatty (change of) liver, not elsewhere classified; K80.20 Calculus of gallbladder without cholecystitis without obstruction
CPT/HCPCS: 74177; 82565; J3490; Q9967

== ENCOUNTER 2020-03-02 07:10 | Outpatient (CLI) | payer OTHER, SELFPAY ==
[2020-03-03 14:44] LABS: COVID-19 RT-PCR Result NEGATIVE (Negative)
== END 2020-03-02 07:30 ==
PROVIDERS: PCP Emergency Medicine; Visit Provider Surgery
DX: Z11.59 Encounter for screening for other viral diseases (principal); Z01.818 Encounter for other preprocedural examination
CPT/HCPCS: U0003

== ENCOUNTER 2020-03-05 08:28 | Day surgery (SDC) | payer OTHER, SELFPAY ==
[2020-03-05 08:42] VITALS: BP 109/72; PULSE 76; RESP 16; TEMP 36; O2SAT 96
[2020-03-05] MEDS: Lactated Ringers 1,000 ML 80 ML IV (09:14)
--- NOTE | 2020-03-05 09:36 | W.PM.DSUDISC ---
Discharge Plan Disposition Patient Disposition: HOME Condition: Good Discharge Details Reason For Visit: EGD, Colonoscopy Attending Provider: Danette Tsai Primary Care Provider: Prince Murray Home Meds and New Rx's Prescriptions: Continued magnesium chloride [Mag 64] 64 mg tablet,delayed release (DR/EC) 128 mg PO DAILY RF: 0 Men 50 Plus Multivitamin 300-600-300 mcg tablet 1 tab PO DAILY RF: 0 lidocaine [Lidoderm] 5 % adhesive patch,medicated 1 patch TP DAILY PRNRF: 0 triamcinolone acetonide 0.025 % cream 1 applic TP BID PRNRF: 0 sertraline [Zoloft] 50 mg tablet 25 mg PO HS RF: 0 metoprolol succinate [Toprol XL] 50 mg tablet extended release 24 hr 50 mg PO DAILY Qty: 90 RF: 4 cyclobenzaprine 10 mg tablet 10 mg PO HS PRN (Reason: muscle spasm) Qty: 20 RF: 0 indomethacin 50 mg capsule 50 mg PO TID PRN (Reason: gout) Qty: 30 RF: 1 losartan 50 mg tablet 50 mg PO BID RF: 0 furosemide 20 mg tablet See Rx Instructions PO DIRECTED Qty: 135 RF: 4 atorvastatin [Lipitor] 20 mg tablet 20 mg PO DAILY Qty: 90 RF: 3 omeprazole 20 mg capsule,delayed release(DR/EC) 20 mg PO BID Qty: 180 RF: 3 hydromorphone 2 mg tablet 4 mg PO Q6H MDD 4 mg PRN (Reason: pain) Qty: 60 RF: 0 ciprofloxacin HCl [Cipro] 250 mg tablet 250 mg PO BID RF: 0 carbidopa-levodopa [Sinemet] 25-100 mg tablet 1 tab PO HS RF: 0 Discontinued bisacodyl [Dulcolax (bisacodyl)] 5 mg tablet,delayed release (DR/EC) 5 mg PO ONCE Qty: 4 RF: 0 polyethylene glycol 3350 17 gram/dose powder 17 g PO ONCE Qty: 238 RF: 0 Discharge Instructions Additional Instructions: Findings: The upper endoscopy looked normal. Routine biopsies were done. A small polyp was removed from the colon. My office will contact you with biopsy results. Follow up: Plan for a follow up colonoscopy in 5 years if the polyp is adenomatous. Contact your primary doctor about scheduling a sleep study to evaluate for sleep apnea. Please call if you develop: fevers >101.5 Nausea or Vomiting Abdominal pain that is not transient DAY SURGERY UNIT POST EGD/COLONOSCOPY INSTRUCTIONS 1. Because there will be medication in your system for the next 24 hours, you may feel a little sleepy. Your coordination will be affected. Therefore: a. Do not drive or operate dangerous equipment for 24 hours. b. Do not drink alcohol beverages for 24 hours (not even beer). c. Plan to go home and rest for the day. 2. Generally there are no restrictions on your activity after a day or so has gone by, but you may feel a bit fatigued for a few days. 3 After you arrive home you may have a light meal and return to a normal diet as you can tolerate it without feeling sick to your stomach. 4. After surgery, you may feel pain or discomfort. This should be only transient, but if it persists please contact your doctor. 5. If there are any questions regarding the findings of your procedure, please feel free to contact your doctor. 6. If you are unable to contact your doctor with a problem, contact the hospital at [phone]. 7. Continue all your regular medications unless directed otherwise. I understand the above instructions and have no questions. Signature of Patient or Responsible Adult Escort Date/Time Name of Responsible Adult Escort Signature of Nurse Date/Time Activity:: Activity as Tolerated Diet:: As Tolerated Discharge Orders Discharge Orders: Discharge Order (Routine); Ordered 03/05/20 Ordered By: Danette Tsai DS: Diagnosis Discharge Diagnosis (1) Atypical chest pain: Status: Acute (2) Colon polyp: Status: Acute
--- NOTE | 2020-03-05 09:38 | W.COLOREPORT ---
Date of service: 03/05/20 Time of Service: 10:19 Colonoscopy Report Date of procedure: 03/05/20 Pre-op diagnosis general: Atypical chest pain, Colon screening Post-op diagnosis procedure note: other (Normal EGD, Cecal polyp) Procedure: EGD with biopsies Colonoscopy with cold forceps polypectomy and biopsies. Surgeon: Danette Tsai Anesthesia proc note operative: MAC Indications: This patient presents with reflux and atypical chest pain. His last colonoscopy was in 2009 Procedure Description: The patient was placed in the left lateral position and propofol titrated to sedation. The endoscope was advanced into the esophagus under direct visualization. The scope was passed through the stomach and into the duodenum. There was no duodenitis or ulceration noted. Biopsies were taken from the second portion of the duodenum to evaluate for celiac disease. The stomach itself was normal including on retroflexed view of the fundus and lesser curvature. Routine biopsies were taken from the gastric antrum. The GE junction was inspected and showed no significant stricture, inflammation, masses or Barretts. The scope was slowly withdrawn with no other esophageal lesions found. Digital rectal examination revealed no abnormalities. The scope was advanced to the cecum without difficulty. The ileocecal valve and appendiceal orifice were clearly identified. The distal ileum was inubated and appeared normal. The prep was adequate except for some residual yellowish stool. A diminuitive polyp was removed with the cold forceps from the cecum. The scope was slowly withdrawn over the course of greater than 6 minutes with no abnormalities seen in the ascending, transverse, descending, sigmoid colon or rectum including on retroflexed view. Random biopsies were taken throughout the colon and sent in the same specimen container to evaluate for microscopic colitis. The patient tolerated the procedure well and was stable to recovery. Plan for routine screening colonoscopy in 5 years if the polyp is adenomatous. Will discuss testing for C diff with the patient.
--- NOTE | 2020-03-05 09:51 | BOWEL_PTH ---
PATIENT: Guy Tavarez LOC: CON U#:[id number] AGE/SX: 59/M ROOM: RE03/05/[address]: Danette Tsai MD : 1960 BED: DIS: 03/05/2020 SPEC #: [id number] RECD: 03/05/20 12:03 STATUS: KAPIL REQ #: [id number] KAT: 03/05/20 09:[address]: Danette Tsai DEPT: Surgical Specimen RECD BY: Hazel Tineo ENTERED: 03/05/20 12:04 SP TYPE: Bowel OTHR DR: Prince Murray DO Tissues: 1 - BIOPSY BOWEL 2 - STOMACH BIOPSY 3 - BIOPSY BOWEL 4 - BIOPSY BOWEL Procedures: GROSS AND MICRO LEVEL 4 Comments: [id number]
[2020-03-05 10:57] VITALS: BP 111/71; PULSE 54; RESP 16; TEMP 36.6
== END 2020-03-05 11:20 | disposition home or self-care (01) ==
PROVIDERS: PCP Emergency Medicine; Visit Provider Surgery
PROC: (CPT 45380; principal; 2020-03-05 09:45)
DX: R07.89 Other chest pain (principal); Z12.11 Encounter for screening for malignant neoplasm of colon; D12.0 Benign neoplasm of cecum; I10 Essential (primary) hypertension
CPT/HCPCS: 45380; 43239; 88305; J2704

== ENCOUNTER 2020-03-08 16:23 | Outpatient (REF) | payer OTHER, SELFPAY ==
[2020-03-15 15:09] LABS: Misc Referral (VDH) See Comments
== END 2020-03-08 16:43 ==
LOC: LBN 16:23
PROVIDERS: PCP Emergency Medicine; Visit Provider Surgery
DX: R19.7 Diarrhea, unspecified (principal)
CPT/HCPCS: 87505; 87324

== ENCOUNTER 2020-10-15 11:50 | Outpatient (REF) | payer OTHER, SELFPAY ==
[2020-10-15 13:57] LABS: Anion Gap 6.4 mmol/L (3-11); BUN 20 mg/dL (7-18); CO2 29.6 mmol/L (21.0-32.0); CREATININE 1.4 mg/dL (0.70-1.30); Calcium 9.5 mg/dL (8.5-10.1); Calculated LDL 63 mg/dL (<100); Chloride 108 mmol/L (98-107); Cholesterol 142 mg/dL (<200); Estimated GFR 51.69 (mL/min/1.73m2); Glucose 115 mg/dL (74-106); HDL Cholesterol 46 mg/dL (40-60); Potassium 4.3 mmol/L (3.5-5.1); Sodium 144 mmol/L (136-145); Triglyceride 165 mg/dL (<150)
== END 2020-10-15 11:51 | disposition home or self-care (01) ==
LOC: LBN 11:50
PROVIDERS: PCP Emergency Medicine; Visit Provider Emergency Medicine
DX: I10 Essential (primary) hypertension (principal)
CPT/HCPCS: 80048; 80061

== ENCOUNTER 2021-07-28 14:40 | Outpatient (CLI) | payer OTHER, SELFPAY ==
--- NOTE | 2021-07-28 14:15 | DI.RAD_ITS ---
Exam(s) XR CHEST 2V PA LATERAL EXAM: XR CHEST 2V PA LATERAL CLINICAL HISTORY: PINO, R06.00; AORTIC STENOSIS, I35.0. Not PUI TECHNIQUE: 2D digital imaging was performed. COMPARISON: CR XR CHEST 2V PA LATERAL from 06/27/2019 FINDINGS: The heart size is normal. The aorta appears normal in diameter. Pulmonary vasculature is unremarkab le. The lungs are clear. There has been no change from previous exams. There are flowing osteophyt es in the thoracic spine. IMPRESSION: No acute abnormality. DATA REPOSITORY: RADIATION DOSE DELIVERED:
== END 2021-07-28 15:00 ==
PROVIDERS: PCP Emergency Medicine; Visit Provider Emergency Medicine
DX: I35.0 Nonrheumatic aortic (valve) stenosis (principal); R06.00 Dyspnea, unspecified
CPT/HCPCS: 71046

== ENCOUNTER 2021-07-28 15:00 | Outpatient (RCR) | payer OTHER, SELFPAY ==
--- NOTE | 2021-07-28 15:00 | HOLTER_ITS ---
APPROVED REPORT Conclusion This is a 48-hour Holter monitor ordered for symptoms of shortness of breath, aortic stenosis Predominant rhythm was sinus with an average heart rate of 62. Minimum was 42, maximum 111 There were very rare atrial premature beats There were occasional to frequent ventricular ectopic beats comprising 4.3% of total There was no ventricular tachycardia, no atrial fibrillation, no high-grade AV block, no pauses great er than 3 seconds Patient symptoms corresponded to sinus rhythm rate 87
== END 2021-08-15 23:59 | disposition home or self-care (01) ==
LOC: RT 15:00
PROVIDERS: PCP Emergency Medicine; Visit Provider Emergency Medicine
DX: R06.02 Shortness of breath (principal); I35.0 Nonrheumatic aortic (valve) stenosis; I49.3 Ventricular premature depolarization
CPT/HCPCS: 93225; 93226

== ENCOUNTER 2021-12-19 03:34 | Outpatient (CLI) | payer OTHER, SELFPAY ==
[2021-12-19 08:39] LABS: HCT 42.7 % (40.0-50.0); HGB 14.4 g/dL (13.5-17.5); MCH 33.1 pg (27.0-33.0); MCHC 33.7 % (32.0-36.0); MCV 98 fL (80-95); MPV 9.5 fL (8.0-11.0); Platelet Count 194 10^3/uL (130-400); RBC 4.35 10^6/uL (4.36-5.78); RDW 12.6 % (11.8-14.1); RDW-SD 45.4 fL; WBC 6.18 10^3/uL (4.4-10.8)
[2021-12-19 10:00] LABS: ALT 35 U/L (16-63); AST 20 U/L (15-37); Albumin 4.3 g/dL (3.4-5.0); Alkaline Phosphatase 97 U/L (46-116); Anion Gap 8.3 mmol/L (3-11); BUN 20 mg/dL (7-18); Bilirubin, Total 0.6 mg/dL (0.2-1.0); CO2 31.7 mmol/L (21.0-32.0); CREATININE 1.3 mg/dL (0.70-1.30); Calculated LDL 68 mg/dL (<100); Chloride 105 mmol/L (98-107); Cholesterol 149 mg/dL (<200); Estimated GFR 56.12 (mL/min/1.73m2); Glucose 99 mg/dL (74-106); HDL Cholesterol 51 mg/dL (40-60); Potassium 4.4 mmol/L (3.5-5.1); Sodium 145 mmol/L (136-145); Total Protein 7.6 g/dL (6.4-8.2); Triglyceride 151 mg/dL (<150)
[2021-12-19 11:45] LABS: Hemoglobin A1C 5.1 % (<5.7)
[2021-12-20 08:11] LABS: Hepatitis C Ab w Rflx HCV PCR Negative (Negative)
[2021-12-20 08:35] LABS: HIV-1/2 Ag & Ab Screen Negative (Negative)
== END 2021-12-19 03:35 | disposition home or self-care (01) ==
LOC: LBO 03:35
PROVIDERS: PCP Nurse Practitioner Family; Visit Provider Family Medicine
DX: I10 Essential (primary) hypertension (principal); E78.5 Hyperlipidemia, unspecified; M10.9 Gout, unspecified; R73.9 Hyperglycemia, unspecified; Z11.59 Encounter for screening for other viral diseases; Z11.4 Encounter for screening for human immunodeficiency virus [HIV]; Z12.5 Encounter for screening for malignant neoplasm of prostate
CPT/HCPCS: 36415; 80053; 80061; 84153; 85027; 86803; 87389; 83036; 84550

== ENCOUNTER 2022-02-07 08:16 | Outpatient (CLI) | payer OTHER, SELFPAY ==
--- NOTE | 2022-02-07 08:15 | RT.EKG_ITS ---
APPROVED REPORT Exam: Resting ECG Reason for Exam: palpitations Patient Location: O HR:64 bpm ECG Measurements Heart Rate 64 AXIS HI 166 P 26 QRSd 91 QRS -20 QT 391 T 54 QTc 404 Conclusion Sinus rhythm...normal P axis, V-rate 50- 99 early transition...QRS area>0 in V2
== END 2022-02-07 08:17 | disposition home or self-care (01) ==
LOC: DI.CARD 08:27
PROVIDERS: PCP Nurse Practitioner Family; Visit Provider Internal Medicine Cardiovascular Disease
DX: R00.2 Palpitations (principal)
CPT/HCPCS: 93010

== ENCOUNTER 2023-03-21 14:32 | Outpatient (CLI) | payer OTHER, SELFPAY ==
[2023-03-21 14:19] LABS: CREATININE 1.5 mg/dL (0.70-1.30); Estimated GFR 52.31 (mL/min/1.73m2); Potassium 4.9 mmol/L (3.5-5.1)
== END 2023-03-21 14:33 | disposition home or self-care (01) ==
LOC: LBO 14:32
PROVIDERS: PCP Nurse Practitioner Family; Visit Provider Nurse Practitioner Family
DX: I10 Essential (primary) hypertension (principal)
CPT/HCPCS: 36415; 82565; 84132

== ENCOUNTER → 2023-04-27 03:00 | Outpatient (CLI) | payer OTHER, SELFPAY ==
--- NOTE | 2023-04-27 13:20 | DI.US_ITS ---
APPROVED REPORT EXAM: Comprehensive 2D, Doppler, and color-flow Echocardiogram Patient Location: Out-Patient Spiritual Minister: Shala Raines RDCS (AE) Indications: Aortic Stenosis Other Information Study Quality: Fair. Technically limited study due to body habitus. Conclusion Normal left ventricular wall thickness and chamber size. Ejection fraction is 55 to 60%. Wall motio n is normal Normal right ventricular size and systolic function Both atria are normal in size Aortic valve is calcified. Number of aortic valve leaflets could not be accurately determined. Ther e is mild aortic stenosis. Peak gradient is 31, mean 17 mmHg. Calculated aortic valve area is 1.3 c m??. There is mild aortic regurgitation Normal mitral valve with trace to mild regurgitation Normal tricuspid valve with trace regurgitation. Right ventricular systolic pressure could not be es timated Dilated ascending aorta measuring 3.74 cm Compared to an echocardiogram from 2021, aortic valve gradients appear less as does the ascending aor ta dimension. Wall motion Left Ventricle Technically limited parasternal imaging. The overall left ventricular systolic function appears elle l. There is normal left ventricular wall thickness. There is normal LV segmental wall motion. LVEF i s 55-60%. Right Ventricle The right ventricle is normal size. The right ventricular systolic function is normal. Atria The left atrium size is normal. The right atrium size is normal. Aortic Valve Aortic valve is calcified. Number of aortic valve leaflets could not be assessed. Mild aortic stenosi s. Peak aortic valve gradient is 31.36mmHg. Highest mean aortic valve gradient is 18.14_mmHg. Calcula blair JAREK by the continuity equation is 1.3cm2. Mild aortic regurgitation. Mitral Valve The mitral valve is normal in structure. No evidence of mitral valve stenosis. Trace to mild mitral r egurgitation. Tricuspid Valve The tricuspid valve is normal in structure. There is no tricuspid valve stenosis. Trace tricuspid reg urgitation. Pulmonic Valve Pulmonic valve is not well visualized. There is no pulmonic valvular stenosis. There is no pulmonic v alvular regurgitation. Great Vessels The aortic root is normal in size. The ascending aorta is mildly dilated. Aortic arch is not well vis ualized. The IVC was not visualized. Technically limited subcostal imaging. Pericardium Technically limited subcostal imaging. 2D Dimensions Ao Root d 3.44 cm M: 3.1 - 3.7 Ao Asc Diam d 3.74 cm M: 2.6 - 3.4 M-Mode TAPSE 2.68 cm (M/F) >1.7 Auto EF LV EDV A4C 156.9 mL LV EDV A2C 171.7 mL LV EDV BP 164.4 mL LV ESV A4C 74.8 mL LV ESV A2C 76.5 mL LV ESV BP 75.6 mL LVEF(%) A4C 52.3 % LVEF(%) A2C 55.4 % LVEF(%) BP 54.0 % LV SV A4C 82.1 ml LV SV A2C 95.2 ml LV SV BP 88.8 ml LV CO A4C 5.1 L/min LV CO A2C 5.9 L/min LV CO BP 5.5 L/min HR A4C 61.75 BPM HR A2C 62.50 BPM LV EDV Index (BP) LA Volume LA Length A4C 5.0 cm LA Length A2C 5.2 cm LA Area A4C s 18.39 cm2 LA Area A2C s 21.94 cm2 LA Vol A4C A-L 57.89 mL LA Vol A2C A-L 79.20 mL LA Vol Biplane A-L 69.0 mL LA Vol/BSA A4C A-L LA Vol/BSA A2C A-L LA Vol/BSA BP A-L 27.2 mL/m2 LA Vol A4C MOD 54.1 mL LA Vol A2C MOD 73.4 mL LA Vol BP MOD 63.8 mL RA Volume RA Area A4C 13.5 cm2 RA ESV A4C (A-L) 28.1mL RA Vol/BSA A4C A-L RA Length A4C 5.5 cm RA ESV A4C (MOD) 26.6mL LV Diastology MV E' medial 0.070 (>0.07 m/s) MV E Vmax 0.83 (0.4-1.3 m/s) MV E/E' MED 11.73 (<14) MV A Vmax 0.85 (0.4-1.3 m/s) MV E' lateral 0.123 (>0.1 m/s) E/A Ratio 1.0 MV E/E' LAT 6.71 (<14) MV E' Average 0.097 m/s MV E/E'(average) 8.54 Aortic Valve AoV Vmax 2.80 m/s LVOT Vmax 1.18 m/s AoV Peak Grad 59.6 mmHg LVOT Peak Grad 5.6 mmHg AoV Area (Vmax) 1.33 cm2 LVOT VTI 0.292 m AoV VTI 0.705 m LVOT Mean Grad 3.6 mmHg AoV Mean Markus. 2.04 m/s LVOT SV 91.62 mL AoV Mean Grad 18.1 mmHg LVOT Diam s 2.00 cm AoV Area (VTI) 1.30 cm2 AV Regurg Peak Gr. 87.80 mmHg Velocity Ratio 0.42 AR Decel Sherman 2.3m/sec2 AR DT 2052 msec AR PHT 595 msec AR Vmax 4.69 m/s Mitral Valve MV DT 197 (160-240 msec) MV Vmax TIPS 0.98 m/s MV Mean Grad 1.5 (<2mmHg) MV VTI 0.329 m Pulmonary Valve PV Vmax 1.35 (0.5-1.5 m/s) RVOT Vmax 0.74 m/s PV Peak Grad 8.1 mmHg RVOT Peak Gr. 2.2 mmHg PV Mean Markus 0.98 m/s RVOT VTI 0.219 m PV Mean Grad 4.8 mmHg RVOT Mean Gr. 1.4 mmHg Tricuspid Valve TV S' 0.14 m/s
== END ==
PROVIDERS: PCP Nurse Practitioner Family; Visit Provider Internal Medicine Cardiovascular Disease
DX: I35.0 Nonrheumatic aortic (valve) stenosis (principal)
CPT/HCPCS: 93306

== ENCOUNTER → 2024-02-01 00:21 | Outpatient (CLI) | payer OTHER, SELFPAY ==
--- OUTSIDE RECORDS SUMMARY | 2024-02-01 00:22 | XMS_ITS | Encounter Summary ---
Author Organization [facility] [place] [address] Care Team Providers Care Sampling Expert Name Role Phone Prince Murray DO Primary Care Provider Reason for Visit * Reason Comments Basal Cell Carcinoma Encounter Details Date Type Department Care Team (Latest Contact Info) Description 04/22/2020 9:15 AM EDT Clinical Support Dermatology at [address] [phone] Kris Hill MD [facility] [place] [address] Basal cell carcinoma (BCC) of left medial cheek Social History Tobacco Use Types Packs/Day Years Used Date Smoking Tobacco: Never Smokeless Tobacco: Never Alcohol Use Standard Drinks/Week Comments Yes 3 (1 standard drink = 0.6 oz pur e alcohol) Sex and Gender Information Value Date Recorded Sex Assigned at Not on file Gender Identity Not on file Sexual Orientation Not on file documented as of this encounter Progress Notes * Yamile Ulrich I, BILLBOARD ERECTOR HELPER - 04/22/2020 9:15 AM EDT Mohs consultation and preoperative note (H&P) Patient Name: Guy Tavarez Age: 60 y.o. Date of : 1960 Today's Date: 04/22/2020 REFERRING PROVIDER: Jae Limon MD CC: Mohs micrographic surgery for treatment of a cutaneous tumor HPI: Guy Tavarez is a 60 y.o. male presenting for biopsy-proven basal cell carcinoma, infiltrativelocation on the left medial cheek. The dermatologic preoperative information sheet was reviewed with pertinent positive and negative as below. DERMATOLOGIC PRE-OPERATIVE EVALUATION AND REVIEW OF SYSTEMS History of Mohs surgery? no If yes, have you ever had Mohs surgery with Dr. Hill? no Pacemaker/Defibrillator? no Joint replacement or other implantable devices (e.g. Cochlear implant)? If yes then when? no Do you take a blood thinner? 81mg ASA daily History of organ transplant? no History of artificial valve or stroke? no History of liver disease or bleeding disorder? no Do you have any medical problems that may affect your upcoming surgery? no Do you have any concerns regarding your upcoming surgery? no We ask patients to discontinue Fish oil/Multivitamin/Vit E/?? supplements and natural medicines not prescribed by a physician 1 week prior to surgery. SOCIAL HISTORY: Makes Own Decisions Yes Hearing aid or other devices: No Relevant travel history or future plans: None Tobacco use (amount per day, type of tobacco): no Do you have any physical limitations that may affect your surgery?: no ALLERGIES: Allergies reviewed MEDICATIONS: Medications reviewed documented in this encounter Plan of Treatment Not on file documented as of this encounter Visit Diagnoses Diagnosis Basal cell carcinoma (BCC) of left medial cheek documented in this encounter Care Teams Sampling Expert Relationship Specialty Start Date End Date Prince Murray DO [address] [place] [address] [address] [facility] [address] [place] [address] PCP - General 06/07/10 documented as of this encounter
--- OUTSIDE RECORDS SUMMARY | 2024-02-01 00:22 | XMS_ITS | Encounter Summary ---
Author Organization [facility] Address [facility] [place] [address] Care Team Providers Care Macaroni Maker Name Role Phone Prince Murray DO Primary Care Provider Reason for Visit * Reason Comments Skin Lesion * Consultation (Routine) - Closed Specialty Diagnoses / Procedures Referred By Randal doyle Referred To Contact Dermatology Diagnoses Disorder of the skin and subcutaneous tissue, unspecified FACIAL SKIN LESION Prince Murray DO [address] [place] [address] [facility] Dermatology [address] [place] [address] Referral ID Status Reason Start Date Expiration Date V isits Requested Visits Authorized [id number] Closed Consult, [facility] PCP Updated and/or Approved 02/03/2020 02/02/2021 1 1 Encounter Details Date Type Department Care Team (Late st Contact Info) Description 02/24/2020 9:30 AM EDT Office Visit Dermatology at [facility] [address] [place] [address] [facility] [address] MICHELA [place] [address] Neoplasm of uncertain behavior Social History Tobacco Use Types Packs/Day Years Used Date Smoking Tobacco: Never Smokeless Tobacco: Never Alcohol Use Standard Drinks/Week Comments Yes 3 (1 standard drink = 0.6 oz pur e alcohol) Sex and Gender Information Value Date Recorded Sex Assigned at Not on file Gender Identity Not on file Sexual Orientation Not on file documented as of this encounter Patient Instructions * Patient Instructions* Shabana Garcia CCMA - 02/24/2020 9:30 AM EDT Treatment and Wound Care Instructions Your treatment today: You have had a punch biopsy of your skin, which is a removal of tissue for examination under a microscope. There are stitches in the wound that will need to be removed in 7-10 days. If bleeding occurs, hold firm pressure against the wound for 15 minutes. If bleeding continues, calls the office or go to your local emergency room. Please allow 1-2 weeks for the biopsy results to return. Your physician or nurse will contact you with the results by phone or letter; follow-up will be discussed at that time. Wound Care Instructions: You will need to keep the dressing placed over the wound dry and intact for 24 hours. Afterwards, perform the following wound care daily until your stitches are removed: ?? Wash your hands before changing the dressing. ?? Remove the bandage and clean the area with mild soap and water, then gently pat the area dry. ?? Apply a small amount of Vaseline to the area, then cover the wound with a band-aid. Change your dressing daily until the wound is fully healed. ?? A small amount of yellow drainage is part of normal healing. You might notice some redness around the edge of the wound. This is normal. ?? Please contact the office you you notice any of the following signs of infection: increased tenderness, pain, drainage, or redness that becomes hot or hard around the wound. If you have further questions or concerns, please call the office at [phone]. If it is after 5PM, or a holiday or weekend, please call [phone] and ask for the Paper Cone Drying Machine Operator on-call. documented in this encounter Progress Notes * Jae Limon MD - 02/24/2020 9:30 AM EDT Images from the original note were not included. DERMATOLOGY - NEW PATIENT NOTE Date of service: 02/24/2020 Guy Tavarez : 1960, 59 y.o. Chief Complaint: Chief Complaint Patient presents with ??? Skin Lesion HPI: Guy Tavarez is a 59 y.o. male with a history of BCC referred by Prince Murray with the following concerns: New patient here today for a focused exam. Patient reports of a lesion on the left cheek that has been present for ~5 months. It has been getting bigger, is painful, and often bleeds. It scabs over but never fully heals. Relevant Skin History: - Okay to leave detailed message with results? Yes - Skin cancer (including type): Yes - 15+ years ago, BCC removed on right cheek Family History: No family h/o melanoma, or Non Melanoma Skin Cancer No family h/o atopy, psoriasis, or other skin disease ?? 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 atorvastatin (LIPITOR) 20 mg Tablet Take 1 tablet by mouth daily. 30 tablet 5 ??? metoprolol succinate XL (TOPROL-XL) 25 mg Tablet Sustained Release 24 hr Take 1 tablet by mouthdaily. 30 tablet 5 ??? sertraline (ZOLOFT) 25 mg Tablet Take 12.5 mg by mouth every evening. ??? losartan (COZAAR) 50 mg Tablet Take 50 mg by mouth every evening. ??? triamcinolone (NASACORT OR NASACORT OTC) 55 mcg Aerosol, [place] 2 sprays by Nasal route 2 times daily. ??? multivitamin (THERAGRAN) Tablet Take 1 tablet by mouth daily. ??? MAGNESIUM CHLORIDE (MAG 64 ORAL) Take 1 tablet by mouth 2 times daily. ??? carbidopa-levodopa (SINEMET) 25-100 mg Tablet Take 1 tablet by mouth nightly. 3 ??? amitriptyline (ELAVIL) 25 mg Tablet Take 25 mg by mouth nightly. ??? HYDROmorphone (DILAUDID) 2 mg Tablet Take 2 mg by mouth every 6 hours as needed for Pain. [id number] in evening ??? indomethacin (INDOCIN) 50 mg Capsule Take 50 mg by mouth 3 times daily as needed. ??? furosemide (LASIX) 20 mg Tablet Take 20 mg by mouth 2 times daily. Alternates between 40mg daily and 20mg daily ??? lidocaine (LIDODERM) 5 % Adhesive Patch, Medicated 1 patch daily as needed (Foot spasms). ??? omeprazole (PRILOSEC) 20 mg Capsule, Delayed Release(E.C.) Take 20 mg by mouth daily. No current facility-administered medications for this visit. Allergies: Allergies Allergen Reactions ??? Amlodipine Other (See Comments) Edema ??? Lisinopril Other (See Comments) cough ??? Metoprolol Other (See Comments) dizziness Review of Systems: - General: Feels well - Skin: No other skin concerns. Examination: - Constitutional: Patient was alert, well-appearing and in no noticeable distress. - Focused Exam: Skin examination of the face and hands was normal with the exception of the findings listed below - A nurse/MA was present and on standby during my examination. Diagnosis/Skin findings/Assessment/Plan: # Favor BCC Exam: On the left medial cheek there is a 7 x 4 mm light pink thinly indurated pearly papule with central 5 x 2 mm clean based ulceration - Discussed with patient diagnostic options, including the risks and benefits of observation, empiric treatment, and biopsy, including but not limited to recurrence, cosmesis (scar, dyspigmentation, scar spread,keloid), pain, keloid/hypertrophic scar, bleeding, infection. Patient verbally understands and elects biopsy. - Would care reviewed with patient instructed patient to call with any concerns on biopsy sight. Sutures to be removed in 7-10 days Procedure Note: Procedure: Punch biopsy Location: left medial cheek Discussed indications for procedure and expectations including risks and benefits. Verbal consent obtained. Skin prep with alcohol. Local anesthesia with 1% xylocaine, 1/100,000 epinephrine. The lesion was removed by 3 mm punch biopsy technique to the level of the sub cutaneous tissue and submittedto Pathology. Hemostasis obtained. Wound closed with 4-0 Prolene suture. There were no complications; the pt. tolerated the procedure well. The wound was dressed. Post-procedure expectations, wound care and activity restrictions were reviewed. RTC: Pending pathology The following photos were obtained with patient consent: Note initiated by KATIA Ho. I, KATIA Ho, have performed the documentation for this encounter in the presence of andacting as a scribe for Jae Limon MD. I performed the services which were documented by the scribe, and I agree with the accuracy of the documentation in this encounter. Jae Limon MD Reviewed and signed by Jae Limon MD Resident in Dermatology [facility] Patient seen in conjunction with staff linen attendant: Macy Lawrence MD Department of Dermatology [facility] * Macy Lawrence MD - 02/24/2020 9:30 AM EDT I directly supervised Dr. Limon during this office visit. Dr. Limon presented the history and physical exam to me. I then saw and examined this patient with Dr. Limon . We reviewed the history and pertinent details and I confirmed the physical findings. I agree with the details of the history and physical exam as documented in Dr. Limon's note. Macy Lawrence MD Staff Physician documented in this encounter Plan of Treatment Not on file documented as of this encounter Procedures Procedure Name Priority Date/Time Associated Diagnosis Comments SURGICAL PATHOLOGY REPORT Routine 02/24/2020 9:58 AM EDT SPECIMEN TO PATHOLOGY Routine 02/24/2020 9:58 AM EDT Neoplasm of uncertain behavior documented in this encounter Results * Surgical Pathology Report (02/24/2020 9:58 AM EDT) Surgical Pathology Report [id number] ? Location: [facility] The signing pathologist has (i) examined the relevant preparation(s) for the specimen(s) and (ii) rendered or confirmed the diagnosis(es). . ?Surgical Pathology DIAGNOSIS A. Left medial cheek, skin punch biopsy: - ??Basal cell carcinoma with infiltrating pattern, present at the peripheral specimen edge Electronically signed by: ??Summer Gibbs MD Verified: ??03/01/2020 ?Dermatopatholo gist Performed at: ??[facility] Dept. of Pathology, [place], [place] ADDITIONAL STUDIES Multiple step-leveled sections were reviewed. SPECIMEN(S) SUBMITTED A - left medial cheek, skin punch (1) CLINICAL INFORMATION 7 x 4 mm light pink thinly indurated pearly papule with central 5 x 2 mm clean based ulceration; favor BCC SPECIMEN PROCESSING A - Labeled/Fixative : Left medial cheek, formalin. Quantity/Size: ??Single, 0.3 cm. Tissue Description: Punch of pink red skin. Sections/Process ing: Submitted en toto in 1 cassette labeled A1. ??sns [facility] 02/24/2020 9:58 AM EDT Jae Limon MD PATHOLOGY/CYTOLOGY O GARCIA Performing Organization Address [facility] Co de Phone Number [facility] [place] [address] * Specimen to Pathology (02/24/2020 9:58 AM EDT) AP Specimen 02/24/2020 9:58 AM EDT 02/24/2020 3:42 PM EDT Narrative [facility] - 02/24/2020 3:43 PM EDT Specimen requisition ordered. ??Separate Pathology report to follow Resulting Agency Comment Spec In Lab Macy Lawrence MD PATHOLOGY/CYTOLOGY O GARCIA Performing Organization Address [facility] Co de Phone Number [facility] [place] [address] documented in this encounter Visit Diagnoses Diagnosis Neoplasm of uncertain behavior Neoplasm of uncertain behavior, site unspecified documented in this encounter Care Teams Macaroni Maker Relationship Specialty Start Date End Date Prince Murray DO [address] [place] [address] PCP - General 06/07/10 documented as of this encounter
--- OUTSIDE RECORDS SUMMARY | 2024-02-01 00:22 | XMS_ITS | Encounter Summary ---
Author Organization [facility] [place] [address] Care Team Providers Care Waitstaff Captain Name Role Phone Prince Murray DO Primary Care Provider Reason for Visit * Reason Comments Medication Refill Encounter Details Date Type Department Care Team (Late st Contact Info) Description 01/02/2020 Refill Cardiology at [address] [place] [address] Kimber Avila APRN [facility] [place] [address] Medication Refill Social History Tobacco Use Types Packs/Day Years Used Date Smoking Tobacco: Never Smokeless Tobacco: Never Alcohol Use Standard Drinks/Week Comments Yes 3 (1 standard drink = 0.6 oz pur e alcohol) Sex and Gender Information Value Date Recorded Sex Assigned at Not on file Gender Identity Not on file Sexual Orientation Not on file documented as of this encounter Plan of Treatment Not on file documented as of this encounter Visit Diagnoses Not on filedocumented in this encounter Care Teams Waitstaff Captain Relationship Specialty Start Date End Date Prince Murray DO [address] [place] [address] PCP - General 06/07/10 documented as of this encounter
--- OUTSIDE RECORDS SUMMARY | 2024-02-01 00:22 | XMS_ITS | Encounter Summary ---
Author Organization [facility] [place] [address] Care Team Providers Care Mail List Librarian Name Role Phone Prince Murray DO Primary Care Provider [phone] Reason for Visit * Reason Comments Skin Check Encounter Details Date Type Department Care Team (Late st Contact Info) Description 06/16/2020 9:30 AM EST Office Visit Dermatology at [address] [address] Jae Limon MD [facility] [place] [address] Sebaceous hyperplasia; History of basal cell carcinoma (BCC); Seborrheic keratoses; Multiple benign nevi Social History Tobacco Use Types Packs/Day Years Used Date Smoking Tobacco: Never Smokeless Tobacco: Never Alcohol Use Standard Drinks/Week Comments Yes 3 (1 standard drink = 0.6 oz pur e alcohol) Sex and Gender Information Value Date Recorded Sex Assigned at Not on file Gender Identity Not on file Sexual Orientation Not on file documented as of this encounter Progress Notes * Jae Limon MD - 06/16/2020 9:30 AM EST Images from the original note were not included. DERMATOLOGY - ESTABLISHED PATIENT FOLLOW-UP Date of service: 06/16/2020 Guy Tavarez : 1960, 60 y.o. Chief Complaint: Chief Complaint Patient presents with ??? Skin Check HPI: Guy Tavarez is a 60 y.o. male last seen by me on 02/24/2020. Mr. Tavarez returns today for a waist up exam. He feels that he has healed very well from his recent mohs surgery for an infiltrative BCC. He notes some concerning lesions on the back and shouldersthat he would like examined today. He has not noted any other new, growing, changing, bleeding, painful or otherwise symptomatic moles or other lesions. He has not noted any other changes in any preexisting lesions. Patient was originally scheduled for a full skin exam, but when offered, patient declined and preferred a waist up exam. Relevant Skin History: - Okay to leave detailed message with results? Yes - Skin cancer (including type): Yes - 04/22/2020: left medial cheek, BCC, S/P mohs - 15+ years ago, right cheek, BCC, removed per patient ?? Family History:?? No family h/o??melanoma, or Non Melanoma Skin Cancer No family h/o atopy,??psoriasis, or other skin disease ?? Social/Occupational History:?? 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 [id number] in evening ??? indomethacin (INDOCIN) 50 mg [...] this visit. Allergies: Allergies Allergen Reactions ??? Latex ??? Amlodipine Other (See Comments) Edema ??? Lisinopril Other (See Comments) cough ??? Metoprolol Other (See Comments) dizziness Review of Systems: - General: Feels well - Skin: No other skin concerns. Examination: - Constitutional: Patient was alert, well-appearing and in no noticeable distress. - Waist Up Exam: Skin examination of the face, ears, neck, chest, axillae, left and right upper extremities, hands, back, and abdomen was normal with the exception of the findings listed below - A nurse/MA was present and on standby during my examination. Diagnosis/Skin findings/Assessment/Plan: #. History of BCC Exam: Well healed scar on the left medial cheek - NER; will continue to clinically monitor lesion - Instructed patient to call if lesion changes, becomes symptomatic, starts growing, or changes color #. Sebaceous Hyperplasia Exam: Scattered 0.2-0.3cm yellowish papules with central umbilication on the face. - Patient reassured of benign nature. - No treatment necessary. #. Seborrheic Keratoses Exam: Scattered brown and flesh colored waxy nummular stuck on plaques located on the trunk and extremities - Reassured of benign nature, return to clinic if these lesions become inflamed or irritating #. Benign nevi Exam: Scattered medium-brown macules and papules on the trunk and extremities. - Reassured of benign appearance on exam today. - Reviewed ABCDEs of melanoma - Recommend daily sun protection with protective clothing and SPF 30+ RTC: 1 year for full skin exam, or sooner if needed, recall placed in system Note initiated by Shabana Garcia CMA. I, Shabana Garcia CMA, have performed the documentation for this encounter in the presence of and acting as a scribe for Jae Limon MD. I performed the services which were documented by the scribe, and I agree with the accuracy of the documentation in this encounter. Jae Limon MD Reviewed and signed by: Jae Limon MD Resident in Dermatology [facility] Patient seen and evaluated with staff aircraft captain: Marily Clancy MD Department of Dermatology [facility] * Marily Clancy MD - 06/16/2020 9:30 AM EST I directly supervised Dr. Limon during this office visit. Dr. Limon presented the history and physical exam to me. I then saw and examined this patient with Dr. Limon . We reviewed the history and pertinent details and I confirmed the physical findings. I agree with the details of the history and physical exam as documented in Dr. Limon's note. MARILY CLANCY MD Staff Physician documented in this encounter Plan of Treatment Not on file documented as of this encounter Visit Diagnoses Diagnosis Sebaceous hyperplasia Other specified disease of sebaceous glands History of basal cell carcinoma (BCC) Seborrheic keratoses Multiple benign nevi Benign neoplasm of skin, site unspecified documented in this encounter Care Teams Mail List Librarian Relationship Specialty Start Date End Date Prince Murray DO [address] [place] [address] PCP - General 06/07/10 documented as of this encounter
--- OUTSIDE RECORDS SUMMARY | 2024-02-01 00:22 | XMS_ITS | Encounter Summary ---
[place] [address] Care Team Providers Care Flame Channeler Name Role Phone Prince Murray DO Primary Care Provider [phone] Reason for Visit * Reason Onset Date Comments Pre Procedure Call 04/13/2020 Encounter Details Date Type Department Care Team (Late st Contact Info) Description 04/13/2020 Telephone Dermatology at [address] [address] Anita Byrd, RN Pre Procedure Call Social History Tobacco Use Types Packs/Day Years Used Date Smoking Tobacco: Never Smokeless Tobacco: Never Alcohol Use Standard Drinks/Week Comments Yes 3 (1 standard drink = 0.6 oz pur e alcohol) Sex and Gender Information Value Date Recorded Sex Assigned at Not on file Gender Identity Not on file Sexual Orientation Not on file documented as of this encounter Miscellaneous Notes * Telephone Encounter - Anita Byrd RN - 04/13/2020 3:55 PM EDT Mohs consultation and preoperative note (H&P) Patient Name: Guy Tavarez Age: 60 y.o. Date of : 1960 Today's Date: 04/13/2020 REFERRING PROVIDER: Jae Limon MD CC: Mohs [...] you ever had Mohs surgery with Dr. Orantes? no Pacemaker/Defibrillator? no Joint replacement or other [...] on filedocumented in this encounter Care Teams Flame Channeler Relationship Specialty Start Date End Date Prince Murray DO [address] [place] [address] PCP - General 06/07/10 documented as of this encounter
--- OUTSIDE RECORDS SUMMARY | 2024-02-01 00:22 | XMS_ITS | Encounter Summary ---
Author Organization [facility] [place] [address] Care Team Providers Care Credit Card Analyst Name Role Phone Prince Murray DO Primary Care Provider Reason for Visit * Reason Comments Medication Refill Encounter Details Date Type Department Care Team (Late st Contact Info) Description 01/06/2020 Refill Cardiology at [address] [place] [address] Kimber Avila APRN [facility] [place] [address] Medication Refill Social History Tobacco Use Types [...] on filedocumented in this encounter Care Teams Credit Card Analyst Relationship Specialty Start Date End Date Prince Murray DO [address] [place] [address] PCP - General 06/07/10 documented as of this encounter
--- OUTSIDE RECORDS SUMMARY | 2024-02-01 00:22 | XMS_ITS | Encounter Summary ---
Author Organization [facility] Address [facility] [place] [address] Care Team Providers Care Ships Or Barges Loader Name Role Phone Prince Murray DO Primary Care Provider Reason for Visit * Reason Comments Irregular Heart Beat * Auth/Cert Specialty Diagnoses / Procedures Referred By Randal t Referred To Contact Diagnoses Ventricular tachycardia NSVT (nonsustained ventricular tachycardia) Procedures EMERGENCY OBSVO Referral ID Status Reason Start Date Expiration Date Visits Re quested Visits Authorized [id number] 1 1 Encounter Details Date Type Department Care Team (Late st Contact Info) Description 07/01/2019 2:55 PM EST - 07/03/2019 1:38 PM EST Emergency Intermediate [place]iac [place] [address] Elsa Farnsworth MD [facility] [place] [address] Reena Galeas DO [facility] [place] [address] Bharathi Ramirez MD [facility] [place] [address] NSVT (nonsustained ventricular tachycardia); Ventricular tachycardia Discharge Disposition: Home Social History Tobacco Use Types Packs/Day Years Used Date Smoking Tobacco: Never Smokeless Tobacco: Never Alcohol Use Standard Drinks/Week Comments Yes 3 (1 standard drink = 0.6 oz pur e alcohol) Sex and Gender Information Value Date Recorded Sex Assigned at Not on file Gender Identity Not on file Sexual Orientation Not on file documented as of this encounter Last Filed Vital Signs Vital Sign Reading Time Taken Comments Blood Pressure 117/68 07/03/2019 11:35 AM EST Pulse 75 07/03/2019 4:14 AM EST Temperature 36.8 ??C (98.2 ??F) 07/03/2019 1 1:35 AM EST Respiratory Rate 16 07/03/2019 11:3 5 AM EST Oxygen Saturation 98% 07/03/2019 11: 35 AM EST Inhaled Oxygen Concentration - - Weight 124.1 kg (273 lb 9.5 oz) 07/03/2019 6:19 AM EST Height 193 cm (6' 4) 07/01/2019 7:50 PM EST Body Mass Index 33.3 07/01/2019 7:50 PM EST documented in this encounter Discharge Summaries * Bharathi Ramirez MD - 07/03/2019 11:29 AM EST Images from the original note were not included. Discharge Summary Patient Name: Guy Tavarez Patient Age: 59 y.o. Language: Turkish Race: White Ethnicity: Not nor Admit date: 07/01/2019 Discharge date and time: 07/03/2019 12:00pm Attending Physician: Bharathi Ramirez MD Discharge Physician: Bharathi Ramirez MD Follow-up Recommendations for Providers: 1. Discharge weight 273lbs. 2. Please monitor blood pressure and heart rate. 3. Please continue to monitor aortic stenosis. 4. Cardiac medications at discharge include lipitor 20mg (new), lasix 20mg BID, losartan 50mg and metoprolol 25mg daily (new). Inpatient Provider Contact Information: MD Kimber Chiu, PIN DRAFTING MACHINE TENDER [phone] Discharge Diagnoses (Hospital Problems) and Secondary Diagnoses (Chronic Problems): Active Hospital Problems Diagnosis ??? NSVT (nonsustained ventricular tachycardia) ??? Hypertension ??? Chronic pain Resolved Hospital Problems No resolved problems to display. Active Non-Hospital Problems Diagnosis ??? CIDP (chronic inflammatory demyelinating polyneuropathy) ??? Gout ??? Fatty liver Operations/Major Procedures: Operations: * No surgery found * TTE 07/02 SUMMARY: 1. Technically limited study. Optison contrast was used to enhance endocardial definition. 2. The left ventricular chamber size is normal. Basal septal hypertrophy is observed. Global systolic function is normal with a quantitative ejection fraction by biplane Rae's method of 68%. 3. The right ventricle is normal in size and global systolic function. Pulmonary artery hypertension could not be assessed due to inadequate tricuspid regurgitation jet. 4. The aortic valve is not well visualized but is probably tricuspid. The valve leaflets are mildly thickened with reduced systolic excursion. The peak/mean trans-valvular gradient are 32 and 19 mmHg, respectively, with a calculated valve area of 1.3 cm2 and DOI (VTI) 0.43, consistent with mild aortic valve stenosis. There is also mild (1+/4+) aortic valve regurgitation (PHT 655 msec). 5. There is mild dilatation of the aortic root and ascending aorta with diameters of 3.6 and 3.7 cm, respectively. 6. No prior study available for comparison. ?? Nuclear stress test 07/02 FINDINGS: No fixed or reversible perfusion defects are present. Functional analysis: Myocardial function: There is normal wall thickening and wall motion. Left ventricular ejection fraction: 62 % (normal greater than than 50%). INCIDENTAL CT FINDINGS: Coronary and aortic calcifications. Aortic valve calcifications. IMPRESSION No ischemia or scar. ??Left ventricular function is normal. History of Presentation: Guy Tavarez is a 59 y.o. male w/ hx of HTN, fatty liver disease, gout, obesity, and chronic inflammatory demyelinating polyneuropathy who was referred to the ED by spa consultant due to findings of multiple episodes of NSVT on Holter monitor done on 06/27. ?? The patient reports several months of dyspnea on exertion that has worsened over the past month. Hedescribes a sedentary lifestyle but reports no problems with her exertional tolerance in the past. The patient reports multiple episodes of PINO during exertion and occasionally after showering and states that for the past week or 2 the dyspnea has been occurring with minimal exertion. He denies anypalpitations, dizziness, syncope, presyncope, recent travel, tick bites, recent illness. ?? Holter monitor was done on June 27 and it showed 87 runs of possible NSVT in 24 hours the longest being 24 beats. The patient denies having any symptoms when the Holter monitor was on. ?? Last week, the patient was referred to the ED of [facility] due to these Holter monitor findings and HI was ruled out, troponins negative x3, and the patient was discharged home. The primary physician thenconsulted and outpatient cardiology consulted who recommended that the patient presented to the ED. ?? The patient denies any significant cardiac history. He is obese and has hypertension and CIDP whichis managed in the outpatient setting. He denies any prior similar episodes. The patient had an echoand a stress test about 10 years ago for procedure and he was told they were normal. ?? The patient is a never smoker. He occasionally drinks alcohol. He occasionally smokes marijuana. Noother drugs. ?? On our encounter the patient was noted to be comfortable and not in acute distress. He denied any symptoms at present. director of photography in the ED showed multiple runs of sinus initiated RSR in lead II. EKG was ordered. Hospital Course: #Abnormal Holter monitor #ODETTE Tavarez is a 59 yo M admitted on 07/01 for an abnormal Holter monitor in the setting of PINO. Upon admission, he was monitored continuously on telemetry. Troponins were negative. No chest discomfort or other cardiac symptoms. We obtained OSH Holter report and reviewed telemetry strips here. Upon review of both, it appeared that the arrhythmia was more consistent with SR with an intermittent LBBB and bursts of SVT with aberrancy. We obtained an echocardiogram which revealed an EF of 68%, no wall motion abnormalities and mild . We also obtained a nuclear stress test to rule out ischemia and this was negative. Patient was started on metoprolol 25mg daily to suppress bursts of SVT. He ambulated the unit without difficulty. He was discharged home on 07/03 in stable condition. ?? #HTN? Continued on home doses of lasix 20mg BID and losartan 50mg. Started metoprolol 25mg daily. The blood pressure range within 12 hours prior to discharge was BP: (124-140)/(65-74) . Functional and Cognitive Status: A+Ox3, ambulates independently Important Studies and Lab Data: Labs: Lab Results Component Value Date WBC 7.1 07/01/2019 HGB 14.2 07/01/2019 HCT 42.3 07/01/2019 PLATELET 217 07/01/2019 No results for input(s): INR in the last 168 hours. Lab Results Component Value Date NA 141 07/02/2019 K 4.3 07/02/2019 CL 103 07/02/2019 CO2 25 07/02/2019 BUN 19 07/02/2019 CREATININE 1.19 07/02/2019 Recent Labs 07/02/19 0413 TSH 3.95 Recent Labs 07/02/19 0413 HA1C 5.1 Recent Labs 07/01/19202507/01/19 1530 TROPONINT <0.01 <0.01 Lab Results Component Value Date CHLPL 195 07/02/2019 HDL 40 07/02/2019 CHOLHDL 4.9 07/02/2019 TRIG 231 07/02/2019 LDLCHOL 109 07/02/2019 Pending Studies and Lab Data: None Discharge Conditions/Prognosis: A+Ox3, ambulates independently Discharge to: Home Updated Allergies/ADRs: Allergies Allergen Reactions ??? Amlodipine Other (See Comments) Edema ??? Lisinopril Other (See Comments) cough ??? Metoprolol Other (See Comments) dizziness Immunizations Given this Hospitalization: There is no immunization history for the selected administration types on file for this patient. Discharge Medications: Your Medications New Medications Dose Details atorvastatin 20 mg Tab Commonly known as: Lipitor Take 1 tablet by mouth daily. Start taking on: July 04, 2019 20 mg Quantity: 30 tablet Refills: 5 metoprolol succinate XL 25 mg Tablet sr Commonly known as: Toprol-XL Take 1 tablet by mouth daily. 25 mg Quantity: 30 tablet Refills: 5 Continued medications, unchanged Dose Details amitriptyline 25 mg Tab Commonly known as: Elavil Take 25 mg by mouth nightly. 25 mg Refills: 0 carbidopa-levodopa 25-100 mg Tab Commonly known as: Sinemet Take 1 tablet by mouth nightly. 1 tablet Refills: 3 Dilaudid 2 mg Tab Take 2 mg by mouth every 6 hours as needed for Pain. Takes 4mg in evening Generic drug: HYDROmorphone 2 mg Refills: 0 indomethacin 50 mg Cap Commonly known as: INDOCIN Take 50 mg by mouth 3 times daily as needed. 50 mg Refills: 0 Lasix 20 mg Tab Take 20 mg by mouth 2 times daily. Alternates between 40mg daily and 20mg daily Generic drug: furosemide 20 mg Refills: 0 Lidoderm 5 % Ptmd 1 patch daily as needed (Foot spasms). Generic drug: lidocaine 1 patch Refills: 0 losartan 50 mg Tab Commonly known as: Cozaar Take 50 mg by mouth every evening. 50 mg Refills: 0 MAG 64 ORAL Take 1 tablet by mouth 2 times daily. 1 tablet Refills: 0 multivitamin Tab Commonly known as: THERAGRAN Take 1 tablet by mouth daily. 1 tablet Refills: 0 omeprazole 20 mg Cpdr Commonly known as: PriLOSEC Take 20 mg by mouth daily. 20 mg Refills: 0 sertraline 25 mg Tab Commonly known as: Zoloft Take 12.5 mg by mouth every evening. 12.5 mg Refills: 0 triamcinolone 55 mcg Spra Commonly known as: NASACORT or NASACORT OTC 2 sprays by Nasal route 2 times daily. 2 spray Refills: 0 STOPPED Medications ALLOPURINOL ORAL baclofen 10 mg Tab Commonly known as: Lioresal clobetasol 0.05 % Oint Commonly known as: TEMOVATE glucosamine sulfate 500 mg Tab HYDROcodone-acetaminophen 7.5-325 mg Tab Commonly known as: NORCO potassium chloride 10 mEq Cpsr Commonly known as: MICRO-K potassium chloride ER 20 mEq Tbtq Commonly known as: K-Dur/Klor-Con Triamcinolone Acetonide-L.S.B. 0.1 % Oint Zantac 150 mg Tab Generic drug: ranitidine Smoking Status at Discharge: Social History Tobacco Use Smoking Status Never Smoker Smokeless Tobacco Never Used Instructions Given to Patient at Discharge: There are no outpatient Patient Instructions on file for this admission. General Instructions Call your doctor if: Chest pain, dyspnea, pain or swelling in legs occurs. If you have non-emergent questions, prior to your follow-up visit please call one of the family and marriage counsellor on Sunday-Sunday between the hours of 8A- 5PM. Cardiology Clinic number @ [phone] If off hours contact the cardiac fellow on- call. Hospital Heel Scorer can help you. Hospital phone number [phone] Return to work: In 1 week Driving: Return to usual activities as tolerated Follow up Appointments: Doctor Where Phone # Date Time Prince Murray DO [address] [place] / [place] [address] 07/18/19 10:20am Pablo Reyes MD cardiology [facility] [phone] , 08/19/19 1:20pm Discharge References/Attachments None Discussed with MD Kimber Tavarez APRN Pager [phone] 07/03/2019 documented in this encounter Discharge Instructions * Discharge Instructions* Kimber Avila APRN - 07/03/2019 11:41 AM EST Call your doctor if: Chest pain, dyspnea, pain or swelling in legs occurs. If you have non-emergent questions, prior to your follow-up visit please call one of the family and marriage counsellor on Sunday-Sunday between the hours of 8A- 5PM. Cardiology Clinic number @ [phone] If off hours contact the cardiac fellow on- call. Hospital Heel Scorer can help you. Hospital phone number [phone] Return to work: In 1 week Driving: Return to usual activities as tolerated Follow up Appointments: Doctor Where Phone # Date Time Prince Murray DO [address] [place] / [place] [address] 07/18/19 10:20am Pablo Reyes MD cardiology [facility] [phone] , 08/19/19 1:20pm documented in this encounter Medications at Time of Discharge Medication Sig Dispensed Refills Start Date End Date atorvastatin (LIPITOR) 20 mg Tablet Take 1 tablet by mouth daily. 30 tablet 5 07/04/2019 metoprolol succinate XL (TOPROL-XL) 25 mg Tablet Sustained Release 24 hr Take 1 tablet by mouth daily. 30 tablet 5 07/03/2019 sertraline (ZOLOFT) 25 mg Tablet Take 12.5 mg by mouth every evening. losartan (COZAAR) 50 mg Tablet Take 50 mg by mouth every evening. triamcinolone (NASACORT OR NASACORT OTC) 55 mcg Aerosol, [place] 2 sprays by Nasal route 2 times daily. multivitamin (THERAGRAN) TabletIndications:Neurop athy Take 1 tablet by mouth daily. MAGNESIUM CHLORIDE (MAG 64 ORAL)Indications:Neuropa thy Take 1 tablet by mouth 2 times daily. carbidopa-levodopa (SINEMET) 25-100 mg TabletIndications:Neurop athy Take 1 tablet by mouth nightly. 3 10/14/2016 amitriptyline (ELAVIL) 25 mg TabletIndications:Sensor y neuronopathy Take 25 mg by mouth nightly. 04/21/2016 HYDROmorphone (DILAUDID) 2 mg TabletIndications:Sensor y neuronopathy Take 2 mg by mouth every 6 hours as needed for Pain. Takes 4mg in evening 06/16/2015 indomethacin (INDOCIN) 50 mg CapsuleIndications:Senso ry neuronopathy Take 50 mg by mouth 3 times daily as needed. 02/01/2016 furosemide (LASIX) 20 mg TabletIndications:Sensor y neuronopathy Take 20 mg by mouth 2 times daily. Alternates between 40mg daily and 20mg daily 04/02/2013 lidocaine (LIDODERM) 5 % Adhesive Patch, MedicatedIndications:Sen enoch neuronopathy 1 patch daily as needed (Foot spasms). 10/22/2013 omeprazole (PRILOSEC) 20 mg Capsule, Delayed Release(E.C.)Indications :Sensory neuronopathy Take 20 mg by mouth daily. documented as of this encounter Progress Notes * Nadeen Lewis RN - 07/03/2019 1:32 PM EST Pt with no issue, walked and no symptom. Vs checked and I/o charted. Iv removed. Pt educated. Pt left unit with his . * Bharathi Ramirez MD - 07/03/2019 8:31 AM EST Images from the original note were not included. Inpatient Cardiology Progress Note Patient Name: Guy Tavarez Service: FAMILY AND DIVORCE LEGAL ASSISTANT / PA Responsible Attending: Bharathi Ramirez MD Reason for continued hospitalization: Evaluation and management of NSVT and worsening PINO Active Problems: Active Hospital Problems Diagnosis ??? NSVT (nonsustained ventricular tachycardia) ??? Hypertension ??? Chronic pain Resolved Hospital Problems No resolved problems to display. Interval History: No acute events overnight. TTE yesterday with a preserved EF, no WMAs and no significant valve abnormalities. Nuclear stress test with no evidence of ischemia or scar. On review of telemetry, does not appear to have NSVT, but more a SR with intermittent LBBB and bursts of SVT. Review of Systems: Review of Systems Constitutional: Negative. Respiratory: Negative for shortness of breath. Cardiovascular: Negative for chest pain, palpitations and leg swelling. Neurological: Negative for syncope and light-headedness. All other systems reviewed and are negative. Telemetry: HR: 60-70s, SR, intermittent LBBB, bursts of SVT, rare PVCs Meds: Scheduled Meds: ??? atorvastatin 20 mg Oral Daily ??? sertraline 25 mg Oral QPM ??? metoprolol tartrate 12.5 mg Oral 2 times per day ??? amitriptyline 25 mg Oral Nightly ??? furosemide 20 mg Oral BID ??? losartan 50 mg Oral QPM ??? pantoprazole EC 20 mg Oral Daily ??? sodium chloride 0.9 % (flush) 5 mL Intravenous BID ??? sodium chloride 0.9 % (flush) 5 mL Intravenous BID ??? heparin (Porcine) 5,000 Units Subcutaneous Q8H JOHN ??? carbidopa-levodopa 1 tablet Oral Nightly Continuous Infusions: PRN Meds:flu vacc (6 mos-64 yrs)(PF), sodium chloride 0.9 % (flush), lidocaine, nitroGLYcerin, sodium chloride 0.9 % (flush), acetaminophen Physical Exam: Vital Signs: Last value Range last 12 hrs Temperature Temp: 37 ??C (98.6 ??F) Temp: [36.4 ??C (97.6 ??F)-37 ??C (98.6 ??F)] Heart Rate Heart Rate: 75 Heart Rate: [75] Blood Pressure BP: 127/67 BP: (124-140)/(65-74) Respiratory Rate Resp: 16 Resp: [16-17] SpO2 SpO2: 97 % SpO2: [96 %-99 %] Physical Exam Constitutional: He is oriented to person, place, and time. He appears well- developed and well-nourished. HENT: Head: Normocephalic and atraumatic. Eyes: Pupils are equal, round, and reactive to light. Cardiovascular: Normal rate and regular rhythm. Murmur (systolic murmur at RUSB) heard. Pulmonary/Chest: Effort normal and breath sounds normal. Abdominal: Soft. Bowel sounds are normal. Musculoskeletal: He exhibits no edema. Neurological: He is alert and oriented to person, place, and time. Skin: Skin is warm and dry. Nursing note and vitals reviewed. Lab Comments: Recent Labs 07/01/19 1530 WBC 7.1 HGB 14.2 HCT 42.3 PLATELET 217 No results for input(s): INR in the last 168 hours. Recent Labs 07/02/19 0413 07/01/19202507/01/19 1530 NA 141 141 139 K 4.3 4.3 4.1 CL 103 101 101 CO2 25 24 26 BUN 19 20 20 CREATININE 1.19 1.33 1.41 Recent Labs 07/02/19 0413 AST 19 ALT 13 ALKPHOS 85 BILITOT 0.5 BILIDIR 0.1 Recent Labs 07/02/19 0413 07/01/19202507/01/19 1530 CALCIUM 9.4 9.6 9.5 MAGNESIUM 0.85 0.81 0.83 PHOS -- -- 3.5 Recent Labs 07/01/19202507/01/19 1530 TROPONINT <0.01 <0.01 Pertinent Radiographic/Diagnostic Results: TTE 07/02 SUMMARY: 1. Technically limited study. Optison contrast was used to enhance endocardial definition. 2. The left ventricular chamber size is normal. Basal septal hypertrophy is observed. Global systolic function is normal with a quantitative ejection fraction by biplane Rae's method of 68%. 3. The right ventricle is normal in size and global systolic function. Pulmonary artery hypertension could not be assessed due to inadequate tricuspid regurgitation jet. 4. The aortic valve is not well visualized but is probably tricuspid. The valve leaflets are mildly thickened with reduced systolic excursion. The peak/mean trans-valvular gradient are 32 and 19 mmHg, respectively, with a calculated valve area of 1.3 cm2 and DOI (VTI) 0.43, consistent with mild aortic valve stenosis. There is also mild (1+/4+) aortic valve regurgitation (PHT 655 msec). 5. There is mild dilatation of the aortic root and ascending aorta with diameters of 3.6 and 3.7 cm, respectively. 6. No prior study available for comparison. Nuclear stress test 07/02 FINDINGS: No fixed or reversible perfusion defects are present. Functional analysis: Myocardial function: There is normal wall thickening and wall motion. Left ventricular ejection fraction: 62 % (normal greater than than 50%). INCIDENTAL CT FINDINGS: Coronary and aortic calcifications. Aortic valve calcifications. IMPRESSION No ischemia or scar. Left ventricular function is normal. Assessment: Guy Tavarez??is a??59 y.o.??male??w/ hx of HTN, fatty liver disease, gout, obesity, and chronic inflammatory demyelinating polyneuropathy who was referred to the ED by spa consultant dueto findings of multiple episodes of NSVT on Holter monitor done on 06/27 with worsening PINO. TTE with preserved EF of 68%, no WMAs and no significant valve abnormalities. Nuclear stress test with no evidence of ischemia or scar. Started metoprolol to suppress bursts of SVT. ?? #NSVT vs SVT episodes noted on Holter #Worsening PINO - Continuous telemetry monitoring - Troponins negative - Obtained Holter telemetry strips - TTE with EF 68%, mild - Nuclear stress test negative for ischemia or scar - Started metoprolol 12.5mg BID ?? #HTN, poorly controlled?? BP: (124-158)/(65-92) - Continue lasix 20mg BID and losartan 50mg - Started metoprolol 12.5mg BID ?? #CIDP?? Continue with home medications ?? #GERD Pantoprazole 20mg daily (omeprazole at home) ?? HM Full code Heart healthy diet Heparin 5000 units subcutaneously every 8 hours for DVT prophylaxis Discussed with MD Kimber Tavarez, PIN DRAFTING MACHINE TENDER Pager [phone] 07/03/2019 Attending Agricultural Education Professor Addendum: This patient was seen in conjunction with Kimber Avila as part of a shared visit. I have independently interviewed and examined the patient and reviewed the pertinent diagnostic information. I agree with the principal findings documented above. The assessment and plan were formulated in discussion with me. Pertinent Exam: JVP not elevated; lungs clear; RRR; trace edema. ?? Major issues addressed: ?? # PINO # Intermittent LBBB # Paroxysmal tachycardia on Holter; appears to be SVT with aberrancy # Mild ?? Plan: -TTE and stress MPI reviewed with him -Discharge on metoprolol therapy Bharathi Ramirez MD, [facility], [facility] Staff Agricultural Education Professor pager [phone] * Bharathi Ramirez MD - 07/02/2019 11:41 AM EST Images from the original note were not included. Inpatient Cardiology Progress Note Patient Name: Guy Tavarez Service: FAMILY AND DIVORCE LEGAL ASSISTANT / PA Responsible Attending: Bharathi Ramirez MD Reason for continued hospitalization: Evaluation and management of NSVT and worsening PINO Active Problems: Active Hospital Problems Diagnosis ??? NSVT (nonsustained ventricular tachycardia) ??? Hypertension ??? Chronic pain Resolved Hospital Problems No resolved problems to display. Interval History: Admitted last night for ?NSVT vs SVT and worsening PINO. No complaints this morning. TTE this morning with ischemic evaluation this afternoon. Review of Systems: Review of Systems Constitutional: Negative. Respiratory: Positive for shortness of breath (with any exertion). Cardiovascular: Negative for chest pain, palpitations and leg swelling. Neurological: Negative for syncope and light-headedness. All other systems reviewed and are negative. Telemetry: HR: 70-120s, SR, NSVT vs SVT 04:57am Meds: Scheduled Meds: ??? sertraline 25 mg Oral QPM ??? amitriptyline 25 mg Oral Nightly ??? furosemide 20 mg Oral BID ??? losartan 50 mg Oral QPM ??? pantoprazole EC 20 mg Oral Daily ??? sodium chloride 0.9 % (flush) 5 mL Intravenous BID ??? sodium chloride 0.9 % (flush) 5 mL Intravenous BID ??? heparin (Porcine) 5,000 Units Subcutaneous Q8H JOHN ??? carbidopa-levodopa 1 tablet Oral Nightly Continuous Infusions: PRN Meds:flu vacc (6 mos-64 yrs)(PF), sodium chloride 0.9 % (flush), lidocaine, nitroGLYcerin, sodium chloride 0.9 % (flush), acetaminophen Physical Exam: Vital Signs: Last value Range last 12 hrs Temperature Temp: 36.9 ??C (98.4 ??F) Temp: [36.7 ??C (98.1 ??F)-36.9 ??C (98.4 ??F)] Heart Rate Heart Rate: 70 Heart Rate: [67-71] Blood Pressure BP: 147/82 BP: (102-150)/(76-88) Respiratory Rate Resp: 16 Resp: [16] SpO2 SpO2: 100 % SpO2: [95 %-100 %] Physical Exam Constitutional: He is oriented to person, place, and time. He appears well- developed and well-nourished. HENT: Head: Normocephalic and atraumatic. Eyes: Pupils are equal, round, and reactive to light. Cardiovascular: Murmur (systolic murmur at RUSB) heard. Intermittent NSVT vs SVT Pulmonary/Chest: Effort normal and breath sounds normal. Abdominal: Soft. Bowel sounds are normal. Musculoskeletal: He exhibits edema (trace bilaterally). Neurological: He is alert and oriented to person, place, and time. Skin: Skin is warm and dry. Nursing note and vitals reviewed. Lab Comments: Recent Labs 07/01/19 1530 WBC 7.1 HGB 14.2 HCT 42.3 PLATELET 217 No results for input(s): INR in the last 168 hours. Recent Labs 07/02/19 0413 07/01/19202507/01/19 1530 NA 141 141 139 K 4.3 4.3 4.1 CL 103 101 101 CO2 25 24 26 BUN 19 20 20 CREATININE 1.19 1.33 1.41 Recent Labs 07/02/19 0413 AST 19 ALT 13 ALKPHOS 85 BILITOT 0.5 BILIDIR 0.1 Recent Labs 07/02/19 0413 07/01/19202507/01/19 1530 CALCIUM 9.4 9.6 9.5 MAGNESIUM 0.85 0.81 0.83 PHOS -- -- 3.5 Recent Labs 07/01/19202507/01/19 1530 TROPONINT <0.01 <0.01 Pertinent Radiographic/Diagnostic Results: TTE 07/02 SUMMARY: 1. Technically limited study. Optison contrast was used to enhance endocardial definition. 2. The left ventricular chamber size is normal. Basal septal hypertrophy is observed. Global systolic function is normal with a quantitative ejection fraction by biplane Rae's method of 68%. 3. The right ventricle is normal in size and global systolic function. Pulmonary artery hypertension could not be assessed due to inadequate tricuspid regurgitation jet. 4. The aortic valve is not well visualized but is probably tricuspid. The valve leaflets are mildly thickened with reduced systolic excursion. The peak/mean trans-valvular gradient are 32 and 19 mmHg, respectively, with a calculated valve area of 1.3 cm2 and DOI (VTI) 0.43, consistent with mild aortic valve stenosis. There is also mild (1+/4+) aortic valve regurgitation (PHT 655 msec). 5. There is mild dilatation of the aortic root and ascending aorta with diameters of 3.6 and 3.7 cm, respectively. 6. No prior study available for comparison. Assessment: Guy Tavarez is a 59 y.o. male w/ hx of HTN, fatty liver disease, gout, obesity, and chronic inflammatory demyelinating polyneuropathy who was referred to the ED by spa consultant due to findings of multiple episodes of NSVT on Holter monitor done on 06/27 with worsening PINO. TTE with preserved EF of 68%, no WMAs and no significant valve abnormalities. Will proceed with ischemic evaluation. ?? #NSVT vs SVT episodes noted on Holter #Worsening PINO - Asymptomatic - Continuous telemetry monitoring - Troponins negative - Obtain Holter telemetry strips - TTE with EF 68%, mild - Consider EP consult - Likely start beta jose alejandro this afternoon #HTN, poorly controlled BP: (102-174)/(76-118) - Continue lasix 20mg BID and losartan 50mg ?? #CIDP Continue with home medications ?? #GERD Pantoprazole 20mg daily (omeprazole at home) ?? HM Full code Heart healthy diet Heparin 5000 units subcutaneously every 8 hours for DVT prophylaxis Discussed with MD Kimber Tavarez, [facility] Pager [phone] 07/02/2019 Attending Agricultural Education Professor Addendum: This patient was seen in conjunction with Kimber Avila as part of a shared visit. I have independently interviewed and examined the patient and reviewed the pertinent diagnostic information. I agree with the principal findings documented above. The assessment and plan were formulated in discussion with me. Pertinent History: PINO in outpatient setting; Holter showing possible NSVT (versus SVT with aberrancy). Pertinent Exam: JVP not elevated; lungs clear; RRR; trace edema. Major issues addressed: # PINO # Paroxysmal tachycardia on Holter; possible NSVT versus SVT with aberrancy # Mild Plan: -TTE reviewed; mild ; normal LV EF, no RMWAs -Stress MPI Bharathi Ramirez MD, [facility], [facility] Staff Agricultural Education Professor pager [phone] * Delroy Napoles RN - 07/02/2019 1:15 AM EST @194: pt received to floor from ED via stretcher accompanied with pt's . A+O x 4. VSS except BP 160/88 upon arrival. Pt denied chest pain and SOB. No nausea and vomiting. Pt voided x1 before coming floor. @2202: Dilaudid 4 mg oral given for bilateral feet pain ( baseline and home dose) w/good effect. Pt placed on railroad accountant w/SR. Labs checked at 2025. Troponin was negative. Stephany BP noted at midnight. Will continue to monitor. documented in this encounter H&P Notes * Geraldine Mendoza MD - 07/01/2019 6:14 PM EST Images from the original note were not included. Cardiology History and Physical Patient Name: Guy Tavarez Date of : 1960 Age: 59 y.o. Hospital Admit Date: 07/01/2019 Inpatient Attending: Reena Galeas DO PCP: Prince Murray DO Presenting Diagnosis/Chief Complaint: Chief Complaint Patient presents with ??? Irregular Heart Beat Active Problem List: Active Hospital Problems Diagnosis ??? NSVT (nonsustained ventricular tachycardia) ??? Hypertension ??? Chronic pain Resolved Hospital Problems No resolved problems to display. History of Present Illness: HPI Guy Tavarez is a 59 y.o. male w/ hx of HTN, fatty liver disease, gout, obesity, and chronic inflammatory demyelinating polyneuropathy who was referred to the ED by spa consultant due to findings of multiple episodes of NSVT on Holter monitor done on 06/27. The patient reports several months of dyspnea on exertion that has worsened over the past month. Hedescribes a sedentary lifestyle but reports no problems with her exertional tolerance in the past. The patient reports multiple episodes of PINO during exertion and occasionally after showering and states that for the past week or 2 the dyspnea has been occurring with minimal exertion. He denies anypalpitations, dizziness, syncope, presyncope, recent travel, tick bites, recent illness. Holter monitor was done on June 27 and it showed 87 runs of NSVT in 24 hours the longest being 24 beats. The patient denies having any symptoms when the Holter monitor was on. Last week, the patient was referred to the ED of [facility] due to these Holter monitor findings and HI was ruled out, troponins negative x3, and the patient was discharged home. The primary physician thenconsulted and outpatient cardiology consulted who recommended that the patient presented to the ED. The patient denies any significant cardiac history. He is obese and has hypertension and CIDP whichis managed in the outpatient setting. He denies any prior similar episodes. The patient had an echoand a stress test about 10 years ago for procedure and he was told they were normal. The patient is a never smoker. He occasionally drinks alcohol. He occasionally smokes marijuana. Noother drugs. On our encounter the patient was noted to be comfortable and not in acute distress. He denied any symptoms at present. director of photography in the ED showed multiple runs of sinus initiated RSR in lead II. EKG was ordered. Past Medical History: Past Medical History: Diagnosis Date ??? CIDP (chronic inflammatory demyelinating polyneuropathy) ??? Fatty liver ??? Gout ??? Hypertension Surgical History/Problems: Partial knee replacement Significant Family History: History reviewed. No pertinent family history. Social History: Social History Socioeconomic History ??? Marital status: Spouse name: Not on file ??? Number of children: Not on file ??? Years of education: Not on file ??? Highest education level: Not on file Occupational History ??? Not on file Social Needs ??? Financial resource strain: Not on file ??? Food insecurity: Worry: Not on file Inability: Not on file ??? Transportation needs: Medical: Not on file Non-medical: Not on file Tobacco Use ??? Smoking status: Never Smoker ??? Smokeless tobacco: Never Used Substance and Sexual Activity ??? Alcohol use: Yes Alcohol/week: 3.0 standard drinks Types: 3 Cans of beer per week ??? Drug use: Yes Types: Marijuana Comment: nightly for medical condition ??? Sexual activity: Not on file Lifestyle ??? Physical activity: Days per week: Not on file Minutes per session: Not on file ??? Stress: Not on file Relationships ??? Social connections: Talks on phone: Not on file Gets together: Not on file Attends episcopal service: Not on file Active member of club or organization: Not on file Attends meetings of clubs or organizations: Not on file Relationship status: Not on file ??? Intimate partner violence: Fear of current or ex partner: Not on file Emotionally abused: Not on file Physically abused: Not on file Forced sexual activity: Not on file Other Topics Concern ??? Do You live alone? Not Asked ??? Tobacco in Home Not Asked Social History Narrative ??? Not on file REVIEW OF SYSTEMS: General ROS: No fatigue or weakness. Psychological: no anxiety / Depression Ophthalmic: No blurred vision or watery or red eyes. ENT: Negative for ear discharge or running nose or cold or throat swelling. Allergy: negative for itchy/watery eyes Heme: Negative for bleeding, bruising, fatigue, jaundice, night sweats Endocrine: negative for polydipsia/polyuria/ heat intolerance Respiratory: As in HPI CVS: As in HPI GI: No abd pain, change in bowel habits, or black or bloody stools Genitourinary: No dysuria, trouble voiding, or hematuria MSK: negative for joint pain, joint stiffness or joint swelling Neurological: No TIA or stroke symptoms PHYSICAL EXAM: Last set of vital signs: BP 162/85 Pulse 72 Temp 36.8 ??C (98.2 ??F) (Oral) Resp 18 SpO2 99% Gen/Constitutional: Comfortable and NAD HEENT: VITALY, EOMI, No conjunctival pallor or scleral icterus. Cardiac/CVS: RRR. NL s1, s2. No s3 or s4. No MRG. No JVD Pulm/Chest: CTAB Abd/GI: Soft. No distention or tenderness. Musculoskeletal: no peripheral edema . Pulses palpable B/L, no calf tenderness, swelling, or erythema. Neuro/TRANSPORTATION DISPATCHER: AAO x 3, No gross motor deficits. No sensory loss. No gait ataxia. Skin/Integumentary: No rash Diagnostics: EKG: LABS: Recent Results (from the past 24 hour(s)) Basic Metabolic Panel (non-fasting) Result Value Ref Range Glucose Lvl 104 65 - 199 mg/dL BUN 20 10 - 20 mg/dL Creatinine 1.41 0.80 - 1.50 mg/dL Sodium 139 135 - 145 mmol/L Potassium 4.1 3.5 - 5.0 mmol/L Chloride 101 98 - 107 mmol/L CO2 26 22 - 31 mmol/L Anion Gap 12 5 - 15 mmol/L Calcium 9.5 8.5 - 10.5 mg/dL eGFR 54 (L) >=60 mL/min/1.73 m?? eGFR 63 >=60 mL/min/1.73 m?? Magnesium Result Value Ref Range Magnesium 0.83 0.69 - 1.07 mmol/L Phosphorus Result Value Ref Range Phosphorus 3.5 2.5 - 4.5 mg/dL Troponin Result Value Ref Range Troponin-T <0.01 0.00 - 0.00 ng/mL TSH Result Value Ref Range TSH 2.12 0.27 - 4.20 mcIU/mL Hemogram Result Value Ref Range WBC 7.1 4.0 - 9.5 x10(3)/mcL RBC 4.49 (L) 4.58 - 5.54 x10(6)/mcL Hemoglobin 14.2 13.7 - 16.5 gm/dL Hematocrit 42.3 40.5 - 48.5 % MCV 94.2 (H) 82.9 - 93.1 fL MCH 31.6 27.5 - 32.1 pg MCHC 33.6 32.0 - 35.7 gm/dL Platelets 217 145 - 357 x10(3)/mcL RDWSD 45.4 (H) 36.0 - 45.0 fL RDWCV 13.1 11.4 - 13.8 % MPV 9.2 7.6 - 12.9 fL nRBC % Auto 0.0 % nRBC Abs Auto 0.000 0.000 - 0.000 x10(3)/mcL Differential, Automated Result Value Ref Range Neutrophils % 65.9 % Neutr Abs (ANC) 4.68 1.70 - 6.10 x10(3)/mcL Lymphocytes % 25.5 % Lymphocytes Abs 1.8 0.9 - 3.2 x10(3)/mcL Monocytes % 6.0 % Monocyte Abs 0.4 0.3 - 0.9 x10(3)/mcL Eosinophils % 1.5 % Eosinophils Abs 0.1 0.0 - 0.4 x10(3)/mcL Basophils % 0.8 % Basophils Abs 0.1 0.0 - 0.1 x10(3)/mcL Immature Gran % 0.30 % Bridgette Gran Abs 0.02 0.00 - 0.04 x10(3)/mcL Blue Tube HOLD Result Value Ref Range Blue Hold Sample in lab. Gold Tube HOLD Result Value Ref Range Gold Hold Sample in lab. A&P: Guy Tavarez is a 59 y.o. male w/ hx of HTN, fatty liver disease, gout, obesity, and chronic inflammatory demyelinating polyneuropathy who was referred to the ED by spa consultant due to findings of multiple episodes of NSVT on Holter monitor done on 06/27. #NSVT episodes noted on holter, not seen by us, asymptomatic during holter placement #Episodes of sinus initiated RSR in lead II on tele the ED, asymptomatic, likely has conduction abnormality #at least one month of PINO, asymptomatic at present #HTN, poorly controlled Admitted to cardiology Telemetry monitoring We will repeat EKG and troponin We will send labs including chemistry, CBC, TSH Echo and exercise treadmill stress test in a.m., likely CMR after that Involve EP to evaluate the presence of sustained VT given the frequent episodes of NSVT and the symptoms (dyspnea) which can be related and will need to risk stratify for ICD based on imaging studiesabove and EP eval Continue home meds including Lasix, losartan Will need to see holter report Will hold off on beta jose alejandro or CCB for now and monitor over night to try and correlate symptoms to NSVT before initiating therapy specifically to treat NSVT. The PINO seems vague and has progressed over months. The patient denies any symptoms during the holter monitoring which reportedly revealed NSVT, the results of which we haven't seen. If symptoms develop with NSVT will start beta jose alejandro #CIDP Asymptomatic now Denies getting IVIG Continue with home medications Involve neuro regarding possibility of conduction abnormalities related to CIDP and need to assess CIDP activity level and need for treatment #GERD Asymptomatic Continue home dose of omeprazole HM Full code Heart healthy diet Heparin 5000 units subcutaneously every 8 hours for DVT prophylaxis Geraldine Mendoza MD Provider #: [id number] 07/01/2019 documented in this encounter ED Notes * Elias Elena P - 07/01/2019 2:58 PM EST ED PROVIDER NOTE Patient: Guy Tavarez Age (): 59 y.o. (1960) SUBJECTIVE CC: Chief Complaint Patient presents with ??? Irregular Heart Beat HPI: Guy Tavarez is a 59 y.o. male with PMH significant for hypertension, CIPD who presented to the ED for shortness of breath, sweats, and irregular heart rhythm found on Holter monitor. History was obtained from the patient and medical record. Patient has been experiencing increased fatigue for the past month. He presented to his primary care provider who prescribed Holter monitor. Holter monitor demonstrates multiple runs of V. tach over 24 hours with longest run lasting 24 beats. Patient endorses increased shortness of breath with any exertion. He now become short of breath with minimal exertion such as while showering. He also becomes diaphoretic with very little exertion. He also notes an episode of presyncope where he was walking up the stairs and had blackened vision and significant lightheadedness. Symptoms resolved after several minutes of rest. He denies any episodes of chest pain. He does endorse a dry cough. No hemoptysis. No orthopnea or paroxysmal nocturnal dyspnea. Patient feels as though his symptoms have progressively worsened over the past month. No history of heart problems. Patient takes medication for hypertension CIPD including losartan, furosemide, hydromorphone, and carbidopa levodopa. He otherwise denies complaints. Patient recently presented to outside hospital where troponins x3, EKG, chest CT were all negative for abnormalities. Hx: PMH, PSH, SH, and FH reviewed. No pertinent changes or recent events. ROS: General: Negative for fever or chills Head/Neck: Negative for recent trauma, headache, or neck pain. Eyes: Negative for vision changes/loss. Ears: Negative for hearing changes/loss. Nose: Negative for nasal congestion or rhinorrhea. Throat: Negative for sore throat. Respiratory: Positive for cough or shortness of breath. Cardiovascular: Negative for chest pain/pressure, positive for pre-syncope GI: Negative for abdominal pain, nausea, vomiting, hematochezia/melena, or changes in bowel habits. : Negative for dysuria, hematuria, changes in urinary habits, or discharge. Musculoskeletal: Negative for gait changes or muscle weakness. Neurological: Positive for dizziness/lightheadedness, fatigue, negative for confusion, numbness OBJECTIVE VS: BP 160/88 (Patient Position: Sitting) Pulse 90 Temp 36.9 ??C (98.4 ??F) (Oral) Resp 17 Ht 193 cm (6' 4) Wt 128.6 kg (283 lb 8.2 oz) SpO2 98% BMI 34.51 kg/m?? PE: General: This is a well-nourished, well-developed male who appears his stated age. He is alert and able to participate in evaluation. Skin: Color and turgor appropriate. No lesions, rashes, or masses appreciated. Head: Atraumatic and normocephalic. Neck: Symmetrical with midline trachea. Eyes: Visual acuity grossly intact. Lids and periorbital area without edema, erythema, or lesions. Sclera anicteric, conjunctiva without swelling, erythema, injection, or exudate. Ears: Hearing grossly intact to normal conversation. Auricles without masses, lesions, or swelling. Nose: No external masses, deformities, or evidence of trauma. No bleeding or discharge. Chest/Pulmonary: Chest wall symmetrical without deformity or tenderness to palpation. Respirations unlabored and regular. No adventitious sounds appreciated on auscultation of anterior and posterior lung asher. Cardiovascular: Regular rate and rhythm. High grade systolic murmur most prominent over the right sternal border. Distal pulses intact in upper extremities. Trace lower extremity edema bilaterally. Abdomen: Obese abdomen. Non-tender to palpation in all quadrants. Without distension, rigidity, organomegaly, palpable masses, or ascites. Musculoskeletal: Normal tone. Musculature and extremities without deformity, asymmetry, effusion, or swelling. No evidence of restricted ROM or gross instability. Neurological: Attention, concentration, language, and fund of knowledge are within expected range. Speech is fluent with normal content. No sensory deficits. Psychiatric: Patient cooperative with appropriate behavior, thought content, and affect. ED Course: - Medications and fluid administered: Medications flu vacc (6 mos-64 yrs)(PF) (Flulaval Quad) IM injection 0.5 mL (has no administration in time range) amitriptyline (Elavil) tablet 25 mg (has no administration in time range) furosemide (Lasix) tablet 20 mg (has no administration in time range) losartan (Cozaar) tablet 50 mg (has no administration in time range) pantoprazole EC (Protonix) tablet 20 mg (has no administration in time range) sertraline (Zoloft) tablet 12.5 mg (has no administration in time range) sodium chloride 0.9 % (flush) flush 5 mL (has no administration in time range) sodium chloride 0.9 % (flush) flush 5-20 mL (has no administration in time range) lidocaine (XYLOCAINE) 10 mg/mL (1 %) injection 3 mg (has no administration in time range) nitroGLYcerin (Nitrostat) disintegrating tablet 0.4 mg (has no administration in time range) sodium chloride 0.9 % (flush) flush 5 mL (has no administration in time range) sodium chloride 0.9 % (flush) flush 5-20 mL (has no administration in time range) acetaminophen (Tylenol) tablet 650 mg (has no administration in time range) heparin (Porcine) subcutaneous injection 5,000 Units (has no administration in time range) carbidopa-levodopa (Sinemet) 25-100 mg per tablet 1 tablet (has no administration in time range) - I have reviewed the labs, which are significant for: Slightly decreased magnesium, otherwise normal electrolytes, negative troponin Recent Results (from the past 24 hour(s)) Basic Metabolic Panel (non-fasting) Result Value Ref Range Glucose Lvl 104 65 - 199 mg/dL BUN 20 10 - 20 mg/dL Creatinine 1.41 0.80 - 1.50 mg/dL Sodium 139 135 - 145 mmol/L Potassium 4.1 3.5 - 5.0 mmol/L Chloride 101 98 - 107 mmol/L CO2 26 22 - 31 mmol/L Anion Gap 12 5 - 15 mmol/L Calcium 9.5 8.5 - 10.5 mg/dL eGFR 54 (L) >=60 mL/min/1.73 m?? eGFR 63 >=60 mL/min/1.73 m?? Magnesium Result Value Ref Range Magnesium 0.83 0.69 - 1.07 mmol/L Phosphorus Result Value Ref Range Phosphorus 3.5 2.5 - 4.5 mg/dL Troponin Result Value Ref Range Troponin-T <0.01 0.00 - 0.00 ng/mL TSH Result Value Ref Range TSH 2.12 0.27 - 4.20 mcIU/mL Hemogram Result Value Ref Range WBC 7.1 4.0 - 9.5 x10(3)/mcL RBC 4.49 (L) 4.58 - 5.54 x10(6)/mcL Hemoglobin 14.2 13.7 - 16.5 gm/dL Hematocrit 42.3 40.5 - 48.5 % MCV 94.2 (H) 82.9 - 93.1 fL MCH 31.6 27.5 - 32.1 pg MCHC 33.6 32.0 - 35.7 gm/dL Platelets 217 145 - 357 x10(3)/mcL RDWSD 45.4 (H) 36.0 - 45.0 fL RDWCV 13.1 11.4 - 13.8 % MPV 9.2 7.6 - 12.9 fL nRBC % Auto 0.0 % nRBC Abs Auto 0.000 0.000 - 0.000 x10(3)/mcL Differential, Automated Result Value Ref Range Neutrophils % 65.9 % Neutr Abs (ANC) 4.68 1.70 - 6.10 x10(3)/mcL Lymphocytes % 25.5 % Lymphocytes Abs 1.8 0.9 - 3.2 x10(3)/mcL Monocytes % 6.0 % Monocyte Abs 0.4 0.3 - 0.9 x10(3)/mcL Eosinophils % 1.5 % Eosinophils Abs 0.1 0.0 - 0.4 x10(3)/mcL Basophils % 0.8 % Basophils Abs 0.1 0.0 - 0.1 x10(3)/mcL Immature Gran % 0.30 % Bridgette Gran Abs 0.02 0.00 - 0.04 x10(3)/mcL Blue Tube HOLD Result Value Ref Range Blue Hold Sample in lab. Gold Tube HOLD Result Value Ref Range Gold Hold Sample in lab. Urinalysis with reflex Culture Result Value Ref Range Glucose UA Negative Negative mg/dL Protein UA Negative Negative mg/dL Bilirubin UA Negative Negative mg/dL Urobilinogen UA Normal Normal mg/dL pH UA 5.0 5.0 - 8.0 Blood UA Negative Negative mg/dL Ketones UA Negative Negative mg/dL Nitrite UA Negative Negative Leukocytes UA Negative Negative mcL Appearance UA Clear Clear Spec [place] UA 1.018 1.002 - 1.030 Color UA Yellow Yellow Culture Reflexed No - I have reviewed the imaging, which is significant for: No evidence of pneumonia or pulmonary edema XR Chest PA & Lateral (Generic) Final Result No acute cardiopulmonary pathology identified. Thank you for letting us participate in the care of this patient. For questions regarding this report, please contact the number below. - I have reviewed the EKG, which is significant for: Normal sinus rhythm ASSESSMENT & PLAN MDM: Guy Tavarez is a 59 y.o. male with PMH significant for hypertension, CIPD who presented to the ED for shortness of breath, sweats, and irregular heart rhythm found on Holter monitor. DDX: Aortic stenosis, arrhythmia, CAD, CHF Suspect patient has aortic stenosis given history of increasing dyspnea, presyncope in the setting of normal troponins and chest CT at outside hospital. Patient has high-grade systolic murmur most evident on the right sternal border. Patient also has evidence of ventricular tachycardia on Holter monitor. CAD is possible however patient has had 3 negative troponins at outside hospital and negativetroponin in the emergency department. CHF is also possible, however patient denies symptoms of orthopnea, paroxysmal nocturnal dyspnea, or lower extremity edema. Additionally, chest x-ray is negativefor pulmonary edema. Cardiology was consulted given patient's history of multiple runs of V. tach on recent Holter monitor. They agreed to see the patient and will admit to cardiology service. Patient was understanding and agreeable to the plan. He will receive an echocardiogram on the floor. PLAN: Admit to cardiology Elias Elena MD 07/01/19 8:57 PM Elias Elena MD Resident 07/01/19 9899 Associated attestation - Elsa Farnsworth MD - 07/03/2019 5:43 AM EST ED ATTENDING ATTESTATION NOTE The patient was seen in conjunction with the resident physician. I have independently performed thekey portions of the history and physical exam. I have reviewed the nursing notes, vital signs, and all diagnostic studies personally including labs, imaging studies and EKGs. I have discussed the details of the case with the resident and agree with the assessment and plan as described in the resident note above unless noted otherwise below. * Prince Christine MD - 07/01/2019 12:23 PM EST I received a call from Dr. Lobito Murray from [facility]. Pt with reported several weeks of exertional dyspnea. No CP. Outpt evaluation started, including Holter monitor. Holter reportedly captured 87 runsof ventricular tachycardia over 24 hour period, longest being 24 beats. Pt also with accelerated idioventricular rhythm noticed as well. cardiology spoken to by outside provider, recommended ED eval with cardiology consultation. Prince Christine MD 07/01/19 [id number] documented in this encounter Miscellaneous Notes * Plan of Care - Corinne Guevara RN - 07/03/2019 4:03 AM EST Problem: Patient Care Overview Goal: Plan of Care Review Outcome: Ongoing (Interventions Implemented as Appropriate) 07/02/19201607/03/19 0359 Plan of Care Review Progress -- improving Coping/Psychosocial Plan Of Care Reviewed With patient -- OUTCOME EVALUATION NOTE: OUTCOME SUMMARY: ase master mechanic shows NSR w/RBBB. No co cp or sob. PLAN MOVING FORWARD: EP consult? INDIVIDUALIZED FALL PREVENTION INTERVENTIONS: Patient-specific fall risk factors per assessment: [current deficits]: tele Assistance [level of assistance required for transfers and ambulation]: independent Supervision [direct monitoring required during toileting and ADLs]: independent Surveillance [continuous indirect monitoring]: tele Patient-specific fall prevention interventions for sensory deficits provided, if applicable: [X] N/A CPG GOAL OUTCOME EVALUATION: ongoing Goal: Fall Prevention-Safe Patient Handling Outcome: Ongoing (Interventions Implemented as Appropriate) 07/02/19201607/03/19 0359 Daily Care Interventions Self-Care Promotion -- independence encouraged;BADL personal objects within reach;BADL personal routines maintained Castro Fall Risk History of Falling 0 -- Secondary Diagnosis 15 -- Ambulatory Aids 0 -- Intravenous Therapy/Heparin/Saline Lock 20 -- Gait/Transferring 0 -- Mental Status 0 -- Score 35 -- OTHER Castro Fall Risk Med -- Restraint Interventions Safety Promotion/Fall Prevention nonskid shoes/slippers when out of bed;safety round/check completed -- Positioning Body Position independent -- Activity Activity Type up ad benita -- Activity Assistance Provided independent -- Assistive Device Utilized none -- Goal: Infection Control Outcome: Ongoing (Interventions Implemented as Appropriate) 07/02/192016 Safety Interventions Isolation Precautions standard precautions maintained Infection Prevention personal protective equipment utilized;rest/sleep promoted;single patient roomprovided Coping Strategies Supportive Measures active listening utilized;self-care encouraged;verbalization of feelings encouraged * Initial Assessments - Corinne Hassan RN - 07/02/2019 4:00 PM EST Office of Care Management Initial Assessment Corinne Hassan RN reviewed record and discussed patient with Care Team. Source of Information: Patient and medical record Introduced self/reviewed role; services accepted. Admission order reviewed: # Order to Admit / Place (Order [id number]) Reason for Hospitalization: NSVT (nonsustained ventricular tachycardia) Past Medical History: Diagnosis Date ??? CIDP (chronic inflammatory demyelinating polyneuropathy) ??? Fatty liver ??? Gout ??? Hypertension Hospitalizations Within the Past 30 Days: None Assessment: Patient resting in bed. Able to answer questions appropriately. Denied pain. Discussed outcome of last 24 hrs and what brought him to the hospital. Stated was directed to [facility] by PCP after Holter monitor read of irregular heart rate. Anticipated Length Of Stay (If known): 3 days Current Decision-Making Capacity: Full Capacity Advance Care Planning: Full Code No AD document scanned to e[facility]. VT AD packet offered to patient, patient declined stating will complete at PCP office. Current Coping/Education/Information Needs: Verbalizes understanding of illness and treatment; verbalizes good support system Current Functional Ability: SBA Functional Status Prior to Admission: Independent w/o DME Home Environment: lives with Deanne at [address] [place] [id number] Social & Family Supports/Community Resources: Extended Emergency Contact Information Primary Emergency Contact: Deanne Tavarez Relation: Spouse DAST 10 In the past year have you used an illegal drug or used a prescription medication for non-medical reaons?: No In the past year have you used opioids (oxycodone, Vicodin, heroin, fentanyl, buprenorphine, methadone, etc.) for non-medical reasons?: No AUDIT In the past year have you had 5 or more drinks a day containing alcohol? no: Other Pertinent/Service Specific Information: n/a Health/Prescription Coverage: Primary Insurance: CIGNA Payor: CIGNA / Plan: CIGNA OPEN ACCESS PLUS / Product Type: *No Product type* / Secondary Insurance: N/A Prescription Coverage: Preferred Pharmacy: [facility] Other: Primary Care Provider: Prince Murray DO [phone] Patient/Caregiver Goals of Treatment: to return to previous level of function Potential Needs for Transition of Care: Rehab/SNF: NA Home Health: NA DME: NA Dialysis: NA Community Resources: n/a Transportation: Family Other: n/a Anticipated Barriers to Discharge/Special Considerations: None Plan: Patient will discharge when medically stable for discharge. Needs pending hospital course Patient assessed with no apparent RNCM/SW needs including clinical resource support at home, housing, transportation, insurance, or other concerns identified. Supports in place to achieve a safe post-hospital transition. No identified barriers to accessing necessary care and/or follow-up after discharge A member of the Care Management team will continue to monitor progress, follow for continuity of care and assist with transition of care planning. Corinne Hassan RN Pager [phone] * ED Triage - Junito Stephens RN - 07/01/2019 3:11 PM EST Pt states saw PCP for 1 month of SOB and lethargic especially with minor exertion. Was given a Holter monitor. On Sunday was told to go to OSH because of numerous runs of v-tach on Holter. Had 3 negative trops there and then sent home. Now advised by PCP to return today to for further eval. Denies any chest pain now. Un aware of episodes when they occur. Denies any loss of consciousness. documented in this encounter Plan of Treatment Not on file documented as of this encounter Procedures Procedure Name Priority Date/Time Associated Diagnosis Comments EKG 12-LEAD Routine 07/03/2019 6:38 AM EST NSVT (nonsustained ventricular tachycardia) NUCLEAR EXERCISE STRESS CARDIOLOGY Routine 07/02/2019 3:13 PM EST NM PHARMACOLOGIC STRESS CT COMPONENT Routine 07/02/2019 3:08 PM EST NM PHARMACOLOGIC STRESS AND REST MYOCARDIAL PERFUSION Routine 07/02/2019 2:21 PM EST ECHO COMPLETE W CONTRAST Routine 07/02/2019 10:09 AM EST NSVT (nonsustained ventricular tachycardia) CRP, ACUTE INFLAMMATION STAT 07/02/2019 4:13 AM EST HC THYROID STIMULATING HORMONE, SERUM STAT 07/02/2019 4:13 AM EST HC PROBNP STAT 07/02/2019 4:13 AM EST HC MAGNESIUM, SERUM STAT 07/02/2019 4 :13 AM EST HC HEMOGLOBIN A1C Routine 07/02/2019 4:1 3 AM EST HEPATIC FUNCTION PANEL STAT 9 4:13 AM EST LIPID PANEL (REFLEX DIRECT LDL) STAT 07/02/2019 4:13 AM EST HC VENIPUNCTURE STAT 07/02/2019 4:13 AM EST BMP W/FASTING GLUCOSE STAT 07/01/2019 8:26 PM EST HC VENIPUNCTURE STAT 07/01/2019 8:26 PM EST HC MAGNESIUM, SERUM STAT 07/01/2019 8 :26 PM EST EKG 12-LEAD STAT 07/01/2019 7:29 PM EST NSVT (nonsustained ventricular tachycardia) URINALYSIS WITH REFLEX CULTURE STAT 07/01/2019 6:24 PM EST XR CHEST PA AND LATERAL STAT 07/01/2019 4:32 PM EST HEMOGRAM STAT 07/01/2019 3:30 PM EST DIFFERENTIAL, AUTOMATED STAT 07/01/2019 3:30 PM EST GOLD TUBE HOLD STAT 07/01/2019 3:30 PM EST BLUE TUBE HOLD STAT 07/01/2019 3:30 PM EST SEDIMENTATION RATE STAT 07/01/2019 3: 30 PM EST HC CBC,PLT & AUTO DIFF STAT 9 3:30 PM EST HC TROPONIN T STAT 07/01/2019 3:30 PM EST HC THYROID STIMULATING HORMONE, SERUM STAT 07/01/2019 3:30 PM EST HC PHOSPHORUS, SERUM STAT 07/01/2019 3:30 PM EST HC MAGNESIUM, SERUM STAT 07/01/2019 3 :30 PM EST BASIC METABOLIC PANEL (NON-FASTING) STAT 07/01/2019 3:30 PM EST EKG 12-LEAD Routine 07/01/2019 3:13 PM EST documented in this encounter Results * EKG 12 Lead (07/03/2019 6:38 AM EST) Ventricular rate 61 BPM MUSE SYSTEM Atrial Rate 61 BPM MUSE SYSTEM P-R Interval 176 ms MUSE SYSTEM QRS Duration 90 ms MUSE SYSTEM Q-T Interval 390 ms MUSE SYSTEM QTC Calculated (Bezet) 392 ms MUSE SYSTEM Calculated P Johnson 39 degrees MUSE SYSTEM Calculated R Johnson -9 degrees MUSE SYSTEM Calculated T Johnson 28 degrees MUSE SYSTEM INTERPRETATION Normal sinus rhythm Normal ECG When compared with ECG of 01-JUL-2019 19:29, Nonspecific T wave abnormality no longer evident in Lateral leads Confirmed by MD Paco, Kade ([id number]) on 07/03/2019 10:45:45 AM MUSE SYSTEM 07/03/2019 6:38 AM EST 07/03/2019 10:45 AM EST iKmber Avila APRN ECG ORDERABLES MUSE SYSTEM * Nuclear Exercise Stress Cardiology (07/02/2019 3:13 PM EST) Anatomical Region Laterality Modality Other Kimber Avila APRN CARDIAC SERVICES O RDERABLES * NM Pharmacologic Stress CT Component (07/02/2019 3:08 PM EST) Anatomical Region Laterality Modality Nuclear Medicine Impressions 07/02/2019 4:55 PM EST No ischemia or scar. ??Left ventricular function is normal. Thank you for letting us participate in the care of this patient. For questions regarding this report, please contact the number below. ? Narrative 07/02/2019 4:55 PM EST EXAMINATION: NM PHARMACOLOGIC STRESS AND REST MYOCARDIAL PERFUSION, NM PHARMACOLOGIC STRESS CT COMPONENT CLINICAL HISTORY: Ventricular tachycardia ??(VT) TECHNIQUE: During rest, 8.9 mCi of technetium-99m sestamibi was administered intravenously. Approximately 20 minutes later, SPECT images of the heart were obtained with reconstruction in the short, vertical long and horizontal long axis. The patient then received regadenoson intravenously at a dose of 0.4 mg. 20 seconds later, 30 mCi of technetium-99m sestamibi was administered intravenously. Images of the heart were then again obtained with SPECT reconstruction. A low-dose CT scan was acquired for the purpose of attenuation correction COMPARISON: None FINDINGS: No fixed or reversible perfusion defects are present. Functional analysis: Myocardial function: There is normal wall thickening and wall motion. Left ventricular ejection fraction: 62 % (normal greater than than 50%). INCIDENTAL CT FINDINGS: Coronary and aortic calcifications. Aortic valve calcifications. Procedure Note Duy Anderson MD - 07/02/2019 EXAMINATION: NM PHARMACOLOGIC STRESS AND REST MYOCARDIAL PERFUSION, NM PHARMACOLOGIC STRESS CT COMPONENT CLINICAL HISTORY: Ventricular tachycardia (VT) TECHNIQUE: During rest, 8.9 mCi of technetium-99m sestamibi wasadministered intravenously. Approximately 20 minutes later, SPECT images of the heartwere obtained with reconstruction in the short, vertical long and horizontallong axis. The patient then received regadenoson intravenously at a dose of 0.4 mg.20 seconds later, 30 mCi of technetium-99m sestamibi was administered intravenously. Images of the heart were then again obtained with SPECT reconstruction. A low-dose CT scan was acquired for the purpose of attenuationcorrection COMPARISON: None FINDINGS: No fixed or reversible perfusion defects are present. Functional analysis: Myocardial function: There is normal wall thickening and wall motion. Left ventricular ejection fraction: 62 % (normal greater than than 50%). INCIDENTAL CT FINDINGS: Coronary and aortic calcifications. Aortic valve calcifications. IMPRESSION No ischemia or scar. Left ventricular function is normal. Thank you for letting us participate in the care of this patient. Forquestions regarding this report, please contact the number below. Kimber Avila APRN IMG NM ORDERABLES * NM Pharmacologic Stress and Rest Myocardial Perfusion (07/02/2019 2:21 PM EST) Anatomical Region Laterality Modality Nuclear Medicine Impressions 07/02/2019 4:55 PM EST No ischemia or scar. ??Left ventricular function is normal. Thank you for letting us participate in the care of this patient. For questions regarding this report, please contact the number below. ? Narrative 07/02/2019 4:55 PM EST EXAMINATION: NM PHARMACOLOGIC STRESS AND REST MYOCARDIAL PERFUSION, NM PHARMACOLOGIC STRESS CT COMPONENT CLINICAL HISTORY: Ventricular tachycardia ??(VT) TECHNIQUE: During rest, 8.9 mCi of technetium-99m sestamibi was administered intravenously. Approximately 20 minutes later, SPECT images of the heart were obtained with reconstruction in the short, vertical long and horizontal long axis. The patient then received regadenoson intravenously at a dose of 0.4 mg. 20 seconds later, 30 mCi of technetium-99m sestamibi was administered intravenously. Images of the heart were then again obtained with SPECT reconstruction. A low-dose CT scan was acquired for the purpose of attenuation correction COMPARISON: None FINDINGS: No fixed or reversible perfusion defects are present. Functional analysis: Myocardial function: There is normal wall thickening and wall motion. Left ventricular ejection fraction: 62 % (normal greater than than 50%). INCIDENTAL CT FINDINGS: Coronary and aortic calcifications. Aortic valve calcifications. Procedure Note Duy Anderson MD - 07/02/2019 EXAMINATION: NM PHARMACOLOGIC STRESS AND REST MYOCARDIAL PERFUSION, NM PHARMACOLOGIC STRESS CT COMPONENT CLINICAL HISTORY: Ventricular tachycardia (VT) TECHNIQUE: During rest, 8.9 mCi of technetium-99m sestamibi wasadministered intravenously. Approximately 20 minutes later, SPECT images of the heartwere obtained with reconstruction in the short, vertical long and horizontallong axis. The patient then received regadenoson intravenously at a dose of 0.4 mg.20 seconds later, 30 mCi of technetium-99m sestamibi was administered intravenously. Images of the heart were then again obtained with SPECT reconstruction. A low-dose CT scan was acquired for the purpose of attenuationcorrection COMPARISON: None FINDINGS: No fixed or reversible perfusion defects are present. Functional analysis: Myocardial function: There is normal wall thickening and wall motion. Left ventricular ejection fraction: 62 % (normal greater than than 50%). INCIDENTAL CT FINDINGS: Coronary and aortic calcifications. Aortic valve calcifications. IMPRESSION No ischemia or scar. Left ventricular function is normal. Thank you for letting us participate in the care of this patient. Forquestions regarding this report, please contact the number below. Kimber Avila PIN DRAFTING MACHINE TENDER [facility] [place] * ECHO COMPLETE W CONTRAST (07/02/2019 10:09 AM EST) Anatomical Region Laterality Modality Other 07/02/2019 Narrative 07/02/2019 11:23 AM EST Procedure: ?Transthoracic Echocardiogram Patient: ?LIDIA King ? (Age): 1960(59y) Med Rec#: ? [id number] ?Sex: ?M ? Site Loc: ? [facility] ?Ht / Wt: ??193(cm)/126(kg) Pt. Loc: ?Adult Floor ? BSA: ?2.55 Study Date: ?? 07/02/2019 ?Pt. Type: Inpatient Tape: ? Referring: GERALDINE MENDOZA Reading: Valerio Waters ([id number]) Loom Operator: Doreen Brenner [facility] Interpreting Fellow: Jenae Lucas ([id number]) Diagnosis: *Ventricular tachycardia (I47.2) BP: ? 150/88 SUMMARY: 1. Technically limited study. Optison contrast was used to enhance endocardial definition. 2. The left ventricular chamber size is normal. Basal septal hypertrophy is observed. Global systolic function is normal with a quantitative ejection fraction by biplane Rae's method of 68%. 3. The right ventricle is normal in size and global systolic function. Pulmonary artery hypertension could not be assessed due to inadequate tricuspid regurgitation jet. 4. The aortic valve is not well visualized but is probably tricuspid. The valve leaflets are mildly thickened with reduced systolic excursion. The peak/mean trans-valvular gradient are 32 and 19 mmHg, respectively, with a calculated valve area of 1.3 cm2 and DOI (VTI) 0.43, consistent with mild aortic valve stenosis. There is also mild (1+/4+) aortic valve regurgitation (PHT 655 msec). 5. There is mild dilatation of the aortic root and ascending aorta with diameters of 3.6 and 3.7 cm, respectively. 6. No prior study available for comparison. Findings ? : Study Quality: ? Technically limited Left Ventricle: ? The left ventricular chamber size is normal. ?Basal septal hypertrophy is observed. ?There is normal global left ventricular systolic function. ?The quantitative left ventricular ejection fraction by biplane Rae's method is 68%. ?There are no left ventricular segmental wall motion abnormalities. Left Atrium: ? The left atrium is normal in size. ?No atrial septal defect is visualized. Right Ventricle: ? The right ventricle is normal in size. ?Right ventricular global systolic function is normal. ?Pulmonary artery hypertension could not be assessed due to inadequate tricuspid regurgitation jet. Right Atrium: ? The right atrium is normal in size. Aortic Valve: ? The aortic valve is not well visualized.Difficult to distinguish tricuspid vs bicuspid. ?The aortic valve leaflets are mildly thickened. ?Systolic excursion of the aortic valve cusps is reduced. ?The peak instantaneous trans-valvular gradient across ??the aortic valve is 32 mmHg. ?The mean trans-valvular gradient across ??the aortic valve is 19 mmHg. ?The calculated aortic valve area is 1.3 cm2. ?There is mild aortic valve stenosis. ?The calculated pressure half-time is 655 msec. ?Mild (1+/4+) aortic valve regurgitation is present. Mitral Valve: ? The mitral valve appears normal in structure and function. ?There is trace mitral regurgitation present. Tricuspid Valve: ? The tricuspid valve appears normal in structure and function. ?There is trace tricuspid regurgitation present. Pulmonic Valve: ? The pulmonic valve is not well visualized. ?There is no evidence of pulmonic regurgitation. Pericardium: ? The pericardium appears normal and there is no evidence of a pericardial effusion. Aorta: ? There is mild dilatation of the aortic root.3.6cm ?There is mild dilatation of the ascending aorta.3.7cm Pulmonary Artery: ? The main pulmonary artery is not well visualized. Venous: ? The inferior vena cava appears normal in size. ?There is a greater than 50% respiratory change in the inferior vena cava dimension. Misc: ? Two-dimensional echo, spectral Doppler and color Doppler performed. ?Optison contrast (one 3 ml vial) was used to enhance endocardial definition. Excess contrast was discarded. Chambers 2D ?Value ?Units (Range) ? IVSd (2D) ? 1.5 ?cm ? LVPWd (2D) ?1 ?cm ? IVS:LVPW ratio (2D) 1.5 ?ratio ? RWT (2D) ?0.6 ?ratio ? RWT PW (2D) ? 0.4 ?ratio ? LVIDd (2D) ?4.6 ?cm ? LVIDs (2D) ?3.1 ?cm ? LVIDd (2D) index ?1.8 ?cm/m2 ? LVIDs (2D) index ?1.2 ?cm/m2 ? LV FS (2D) ?32 ? % ? EF Teichholz (2D) ?? 61 ? % ? Ao root diameter (2D3.6 ?cm (2.1 - 3.6) ? Ascending Ao ?3.7 ?cm (2 - 3.5) ? Volumes/Mass ?Value ?Units (Range) ? LA Area 4 CH ?17 ? cm2 (<21) ? LA ESV BP (A/L) inde20.6 ? ml/m2 ? RA AREA 4CH ? 14 ? cm2 ? LV ESV SP 4CH (MOD) 52.7 ? ml ? LV ESV SP 2CH (MOD) 45.1 ? ml ? LV EDV BP ? 153.8 ?ml ? LV ESV BP ? 50 ? ml ? LV EDV BP index ? 60.3 ? ml/m2 ? LV ESV BP index ? 19.6 ? ml/m2 ? BP EF (MOD) ? 68 ? % ? LV mass (2D) ?217.3 ?g ? LV mass (2D) index ??85.2 ? g/m2 ? Diastolic/Systolic Function ?Value ?Units (Range) ? MV E-wave Vmax ?0.5 ?m/sec ? MV deceleration skga343.8 ?msec ? MV A-wave Vmax ?0.6 ?m/sec ? MV E:A ratio ?0.9 ?ratio ? LV septal e' Vmax ?? 0.1 ?m/sec ? LV lateral e' Vmax ??0.1 ?m/sec ? LV average e' Vmax ??0.1 ?m/sec ? LV E:e' septal ratio6.9 ?ratio ? LV E:e' lateral rati4.8 ?ratio ? LV average E:e' rati6 ?ratio ? Aortic Valve ?Value ?Units (Range) ? AV Vmax ? 2.8 ?m/sec ? AV VTI ?53.4 ? cm ? AV peak gradient ?32 ? mmHg ? AV mean gradient ?19 ? mmHg ? LVOT diameter ? 2.1 ?cm ? LVOT Vmax ? 1 ?m/sec ? LVOT VTI ?23.2 ? cm ? LVOT peak gradient ??4.2 ?mmHg ? LVOT mean gradient ??2.8 ?mmHg ? DOI (VTI) ? 0.4 ?ratio ? DOI (Vmax) ?0.4 ?ratio ? SV LVOT ? 82.7 ? ml ? CO LVOT ? 5.5 ?l/min ? Cardiac index ? 2.2 ?l/min/m2 ? JAREK (continuity Vmax1.3 ?cm2 ? JAREK (continuity Vmax0.5 ?cm2/m2 ? JAREK (continuity VTI)1.6 ?cm ? JAREK (continuity VTI)0.6 ?cm2/m2 ? AR PHT ?655 ?msec ? AR peak gradient ?82.9 ? mmHg ? Wall Motion: Segment Name ?Rest ? Base-Anteroseptal ?? Normal ? Base-Anterior ? Normal ? Base-Anterolateral ??Normal ? Base-Posterolateral Normal ? Base-Inferior ? Normal ? Base-Inferoseptal ?? Normal ? Mid-Anteroseptal ?Normal ? Mid-Anterior ?Normal ? Mid-Anterolateral ?? Normal ? Mid-Posterolateral ??Normal ? Mid-Inferior ?Normal ? Mid-Inferoseptal ?Normal ? Parker-Septal ? Normal ? Parker-Anterior ? Normal ? Parker-Lateral ?Normal ? Parker-Inferior ? Normal ? Parker-Tip ?Normal ? This report has been electronically signed by: Valerio Waters M.D. ? 07/02/2019 11:23:19 Images reviewed and interpretation verified [facility] Cardiac Ultrasound Laboratory Procedure Note Valerio Waters MD - 07/02/2019 Procedure: Transthoracic Echocardiogram Patient: LIDIA King DOB(Age): 1960(59y) Med Rec#: [id number] Sex: M Site Loc: [facility] Ht / Wt: 193(cm)/126(kg) Pt. Loc: Adult Floor BSA: 2.55 Study Date: 07/02/2019 Pt. Type: Inpatient Tape: Referring: GERALDINE MENDOZA Reading: Valerio Waters ([id number]) Loom Operator: Doreen Brenner [facility] Interpreting Fellow: Jenae Lucas ([id number]) Diagnosis: *Ventricular tachycardia (I47.2) BP: 150/88 SUMMARY: 1. Technically limited study. Optison contrast was used to enhance endocardial definition. 2. The left ventricular chamber size is normal. Basal septal hypertrophy is observed. Global systolic function is normal with a quantitative ejection fraction by biplane Rae's method of 68%. 3. The right ventricle is normal in size and global systolic function. Pulmonary artery hypertension could not be assessed due to inadequate tricuspid regurgitation jet. 4. The aortic valve is not well visualized but is probably tricuspid. The valve leaflets are mildly thickened with reduced systolic excursion. The peak/mean trans-valvular gradient are 32 and 19 mmHg, respectively, with a calculated valve area of 1.3 cm2 and DOI (VTI) 0.43, consistent with mild aortic valve stenosis. There is also mild (1+/4+) aortic valve regurgitation (PHT 655 msec). 5. There is mild dilatation of the aortic root and ascending aorta with diameters of 3.6 and 3.7 cm, respectively. 6. No prior study available for comparison. Findings : Study Quality: Technically limited Left Ventricle: The left ventricular chamber size is normal. Basal septal hypertrophy is observed. There is normal global left ventricular systolic function. The quantitative left ventricular ejection fraction by biplane Rae's method is 68%. There are no left ventricular segmental wall motion abnormalities. Left Atrium: The left atrium is normal in size. No atrial septal defect is visualized. Right Ventricle: The right ventricle is normal in size. Right ventricular global systolic function is normal. Pulmonary artery hypertension could not be assessed due to inadequate tricuspid regurgitation jet. Right Atrium: The right atrium is normal in size. Aortic Valve: The aortic valve is not well visualized.Difficult to distinguish tricuspid vs bicuspid. The aortic valve leaflets are mildly thickened. Systolic excursion of the aortic valve cusps is reduced. The peak instantaneous trans-valvular gradient across the aortic valve is 32 mmHg. The mean trans-valvular gradient across the aortic valve is 19 mmHg. The calculated aortic valve area is 1.3 cm2. There is mild aortic valve stenosis. The calculated pressure half-time is 655 msec. Mild (1+/4+) aortic valve regurgitation is present. Mitral Valve: The mitral valve appears normal in structure and function. There is trace mitral regurgitation present. Tricuspid Valve: The tricuspid valve appears normal in structure and function. There is trace tricuspid regurgitation present. Pulmonic Valve: The pulmonic valve is not well visualized. There is no evidence of pulmonic regurgitation. Pericardium: The pericardium appears normal and there is no evidence of a pericardial effusion. Aorta: There is mild dilatation of the aortic root.3.6cm There is mild dilatation of the ascending aorta.3.7cm Pulmonary Artery: The main pulmonary artery is not well visualized. Venous: The inferior vena cava appears normal in size. There is a greater than 50% respiratory change in the inferior vena cava dimension. Misc: Two-dimensional echo, spectral Doppler and color Doppler performed. Optison contrast (one 3 ml vial) was used to enhance endocardial definition. Excess contrast was discarded. Chambers 2D Value Units (Range) IVSd (2D) 1.5 cm LVPWd (2D) 1 cm IVS:LVPW ratio (2D) 1.5 ratio RWT (2D) 0.6 ratio RWT PW (2D) 0.4 ratio LVIDd (2D) 4.6 cm LVIDs (2D) 3.1 cm LVIDd (2D) index 1.8 cm/m2 LVIDs (2D) index 1.2 cm/m2 LV FS (2D) 32 % EF Teichholz (2D) 61 % Ao root diameter (2D3.6 cm (2.1 - 3.6) Ascending Ao 3.7 cm (2 - 3.5) Volumes/Mass Value Units (Range) LA Area 4 CH 17 cm2 (<21) LA ESV BP (A/L) inde20.6 ml/m2 RA AREA 4CH 14 cm2 LV ESV SP 4CH (MOD) 52.7 ml LV ESV SP 2CH (MOD) 45.1 ml LV EDV BP 153.8 ml LV ESV BP 50 ml LV EDV BP index 60.3 ml/m2 LV ESV BP index 19.6 ml/m2 BP EF (MOD) 68 % LV mass (2D) 217.3 g LV mass (2D) index 85.2 g/m2 Diastolic/Systolic Function Value Units (Range) MV E-wave Vmax 0.5 m/sec MV deceleration ivga856.8 msec MV A-wave Vmax 0.6 m/sec MV E:A ratio 0.9 ratio LV septal e' Vmax 0.1 m/sec LV lateral e' Vmax 0.1 m/sec LV average e' Vmax 0.1 m/sec LV E:e' septal ratio6.9 ratio LV E:e' lateral rati4.8 ratio LV average E:e' rati6 ratio Aortic Valve Value Units (Range) AV Vmax 2.8 m/sec AV VTI 53.4 cm AV peak gradient 32 mmHg AV mean gradient 19 mmHg LVOT diameter 2.1 cm LVOT Vmax 1 m/sec LVOT VTI 23.2 cm LVOT peak gradient 4.2 mmHg LVOT mean gradient 2.8 mmHg DOI (VTI) 0.4 ratio DOI (Vmax) 0.4 ratio SV LVOT 82.7 ml CO LVOT 5.5 l/min Cardiac index 2.2 l/min/m2 JAREK (continuity Vmax1.3 cm2 JAREK (continuity Vmax0.5 cm2/m2 JAREK (continuity VTI)1.6 cm JAREK (continuity VTI)0.6 cm2/m2 AR PHT 655 msec AR peak gradient 82.9 mmHg Wall Motion: Segment Name Rest Base-Anteroseptal Normal Base-Anterior Normal Base-Anterolateral Normal Base-Posterolateral Normal Base-Inferior Normal Base-Inferoseptal Normal Mid-Anteroseptal Normal Mid-Anterior Normal Mid-Anterolateral Normal Mid-Posterolateral Normal Mid-Inferior Normal Mid-Inferoseptal Normal Parker-Septal Normal Parker-Anterior Normal Parker-Lateral Normal Parker-Inferior Normal Parker-Tip Normal This report has been electronically signed by: Valerio Waters M.D. 07/02/2019 11:23:19 Images reviewed and interpretation verified [facility] Cardiac Ultrasound Laboratory Geraldine Mendoza MD ECHO ORDERABLES * (ABNORMAL) CRP, acute inflammation (07/02/2019 4:13 AM EST) CRP 5.7(H) <=4.9 mg/L [facility] Blood specimen (specimen) Venous Draw / Unknown 07/02/2019 4:13 AM EST 07/02/2019 4:31 AM EST Narrative Resulting Agency Comment Spec In Lab Geraldine Mendoza MD CHEMISTRY ORDERABLES [facility] [address] * Hemoglobin A1c (07/02/2019 4:13 AM EST) Hemoglobin A1C 5.1 4.3 - 5.6 % [facility] Comment: Reference Range: 4.3 - 5.6% 5.7 - 6.4% - Increased Risk of Developing Diabetes Mellitus >= 6.5% - Consistent with diagnosis of Diabetes Mellitus In the absence of hyperglycemia (i.e. plasma glucose > 200 mg/dL) or classic symptoms of hyperglycemia a repeat measurement of HbA1c should be performed on a separate sample to confirm the diagnosis. Diagnosis and Classification of Diabetes Mellitus, Diabetes Care 2013; 36: Suppl. 1, G87-12 Est Avg Gluc 99 mg/dL [facility] Comment: eAG equivalents for HbA1c percentages: HbA1c(%) ?eAG(mg/dL) 6.0 ?126 6.5 ?140 7.0 ?154 7.5 ?169 8.0 ?183 8.5 ?197 9.0 ?212 9.5 ?226 10.0 ? 240 Limitations: The eAG calculation has not been validated on women, individuals below 18 years old and above 70 years old, and individuals with hemoglobinopathies. Additional resources are available on the ADA website. Julius BROOKS, Allison J, Daniel R, et al. ??Translating the A1C assay into estimated average glucose values. ??Diabetes Care 2008:31(8):3865-2035. Blood specimen (specimen) 07/02/2019 4:13 AM EST 07/02/2019 4:30 AM EST Narrative Resulting Agency Comment Spec In Lab Geraldine Mendoza MD CHEMISTRY ORDERABLES [facility] [place] [address] * Lipid Panel (Reflex Direct LDL) (07/02/2019 4:13 AM EST) Chol, Total 195 mg/dL [facility] Comment: Lower Risk: <200 mg/dL Average Risk: 200-239 mg/dL Higher Risk: >ei=981 mg/dL Triglycerides 231 mg/dL [facility] Comment: Average Risk/Lower Risk: <150 mg/dL Borderline High Risk: 150-199 mg/dL High Risk: 200-499 mg/dL Very High Risk: >rr=332 mg/dL HDL 40 mg/dL [facility] Comment: Males: ?? Higher Risk: <40 mg/dL Females: ?? HIgher Risk: <50 mg/dL LDL Cholesterol 109 mg/dL [facility] Comment: Lowest Risk: <100 mg/dL Lower Risk: 100-129 mg/dL Borderline High Risk: 130-159 mg/dL High Risk: 160-189 mg/dL Very High Risk: >pv=596 mg/dL Chol/HDL Ratio 4.9 ratio [facility] Lipid Interpretation See Note [facility] Comment: Lipid management should be guided by a patient? s ASCVD risk, goals and preferences. ACC/AHA Guidelines recommend high intensity statin if clinical ASCVD or LDL greater than or equal to 190 mg/dL. http://Easy Food.com/JJA-JHS-Mpwxsimqy Adults aged 40-75 with LDL 70-189 mg/dL should have their 10 year ASCVD risk estimated with the ACC/AHA ASCVD risk junior estimator http://tools.acc.org/XUKOQ-Ubka-Lynhzcuak/ Statin should be discussed if risk greater than or equal to 7.5% in non-diabetics. With diabetes, moderate intensity statin is recommended if risk less than 7.5%, high intensity if risk greater than or equal to 7.5%. Annual lipid monitoring on statins is not necessary. Evaluate secondary causes of Triglycerides greater than 500 mg/dL or LDL greater than 190 mg/dL: See table 6 of ACC/AHA Guideline. Lifestyle modification is a critical component of ASCVD risk reduction. Blood specimen (specimen) 07/02/2019 4:13 AM EST 07/02/2019 4:30 AM EST Narrative Resulting Agency Comment Spec In Lab Geraldine Mendoza MD CHEMISTRY ORDERABLES [facility] [place] [address] * Hepatic Function Panel (07/02/2019 4:13 AM EST) Total Protein 7.5 6.1 - 8.0 gm/dL [facility] Albumin 4.3 3.2 - 5.2 gm/dL [facility] AST 19 0 - 39 unit/L [facility] ALT 13 0 - 55 unit/L [facility] Alk Phos 85 40 - 130 unit/L [facility] Total Bilirubin 0.5 0.2 - 1.3 mg/dL [facility] Bili, Direct 0.1 0.0 - 0.3 mg/dL [facility] Blood specimen (specimen) 07/02/2019 4:13 AM EST 07/02/2019 4:30 AM EST Narrative Resulting Agency Comment Spec In Lab Geraldine Mendoza MD CHEMISTRY ORDERABLES Performing Organization Address [facility] Co de Phone Number [facility] [place] [address] * pro-Brain Natriuretic Peptide (07/02/2019 4:13 AM EST) ProBNP 29 <=125 pg/mL [facility] Blood specimen (specimen) 07/02/2019 4:13 AM EST 07/02/2019 4:30 AM EST Narrative Resulting Agency Comment Spec In Lab Geraldine Mendoza MD CHEMISTRY ORDERABLES Performing Organization Address [facility] Co de Phone Number [facility] [place] [address] * TSH (07/02/2019 4:13 AM EST) TSH 3.95 0.27 - 4.20 mcIU/mL [facility] Blood specimen (specimen) 07/02/2019 4:13 AM EST 07/02/2019 4:30 AM EST Narrative Resulting Agency Comment Spec In Lab Geraldine Mendoza MD CHEMISTRY ORDERABLES Performing Organization Address [facility] Co de Phone Number [facility] [place] [address] * Magnesium (07/02/2019 4:13 AM EST) Magnesium 0.85 0.69 - 1.07 mmol/L [facility] Blood specimen (specimen) 07/02/2019 4:13 AM EST 07/02/2019 4:30 AM EST Narrative Resulting Agency Comment Spec In Lab Geraldine Mendoza MD CHEMISTRY ORDERABLES [facility] [place] [address] * Basic Metabolic Panel (non-fasting) (07/02/2019 4:13 AM EST) Glucose Lvl 97 65 - 199 mg/dL [facility] Comment:Diabetes: >=200 mg/d L plus symptoms BUN 19 10 - 20 mg/dL [facility] Creatinine 1.19 0.80 - 1.50 mg/dL [facility] Sodium 141 135 - 145 mmol/L [facility] Potassium 4.3 3.5 - 5.0 mmol/L [facility] Comment: Please note: ??Patients with WBC >100,000 may have falsely elevated Potassium levels. ??For accurate Potassium quantification in these patients send serum separator tube (gold top) for subsequent determinations. ??Contact the Clinical Chemistry Laboratory if there are any questions. Chloride 103 98 - 107 mmol/L [facility] CO2 25 22 - 31 mmol/L [facility] Anion Gap 13 5 - 15 mmol/L [facility] Calcium 9.4 8.5 - 10.5 mg/dL [facility] Estimated GFR 66 >=60 mL/min/1. 73 m?? [facility] Comment: The eGFR was calculated using the CKD-EPI equation. As with all creatinine based estimates of kidney function, eGFR values calculated with the CKD-EPI equation are not accurate in patients with acute kidney failure, extremes of body mass or the acutely ill. http://Giiv/DHMCnkf eGFR 77 >=60 mL/min/1. 73 m?? [facility] Comment: The eGFR was calculated using the CKD-EPI equation. As with all creatinine based estimates of kidney function, eGFR values calculated with the CKD-EPI equation are not accurate in patients with acute kidney failure, extremes of body mass or the acutely ill. http://Easy Food.com/DHMCnkf Blood specimen (specimen) 07/02/2019 4:13 AM EST 07/02/2019 4:30 AM EST Narrative Resulting Agency Comment Spec In Lab Geraldine Mendoza MD CHEMISTRY ORDERABLES Performing Organization Address [facility] Co de Phone Number [facility] [place] [address] * Magnesium (07/01/2019 8:26 PM EST) Magnesium 0.81 0.69 - 1.07 mmol/L [facility] Blood specimen (specimen) 07/01/2019 8:26 PM EST 07/01/2019 8:34 PM EST Narrative Resulting Agency Comment Spec In Lab Geraldine Mendoza MD CHEMISTRY ORDERABLES Performing Organization Address [facility] de Phone Number [facility] [place] [address] * (ABNORMAL) BMP w/fasting Glucose (07/01/2019 8:26 PM EST) Glucose Fasting 105(H) 65 - 99 mg/dL [facility] Comment: ?Fasting* Glucose Interpretive Criteria Normal ?65-99 mg/dL Impaired Fasting glucose ?100-125 mg/dL Consistent with Diabetes Mellitus ? >or= 126 mg/dL *Fasting is defined as no caloric intake for at least 8 hours In the absence of unequivocal hyperglycemia a plasma glucose value of >or= 126 mg/dL should be repeated on a subsequent day. Diagnosis and Classification of Diabetes Mellitus, Position Statement from the [place] [employer]. ??Diabetes Care, Volume 33, Supplement 1, Jul 2009 BUN 20 10 - 20 mg/dL [facility] Creatinine 1.33 0.80 - 1.50 mg/dL [facility] Sodium 141 135 - 145 mmol/L [facility] Potassium 4.3 3.5 - 5.0 mmol/L [facility] Comment: Please note: ??Patients with WBC >100,000 may have falsely elevated Potassium levels. ??For accurate Potassium quantification in these patients send serum separator tube (gold top) for subsequent determinations. ??Contact the Clinical Chemistry Laboratory if there are any questions. Chloride 101 98 - 107 mmol/L [facility] CO2 24 22 - 31 mmol/L [facility] Anion Gap 16(H) 5 - 15 mmol/L [facility] Calcium 9.6 8.5 - 10.5 mg/dL [facility] Estimated GFR 58(L) >=60 mL/min/1. 73 m?? [facility] Comment: The eGFR was calculated using the CKD-EPI equation. As with all creatinine based estimates of kidney function, eGFR values calculated with the CKD-EPI equation are not accurate in patients with acute kidney failure, extremes of body mass or the acutely ill. http://Giiv/EvoTronixnkf eGFR 67 >=60 mL/min/1. 73 m?? [facility] Comment: The eGFR was calculated using the CKD-EPI equation. As with all creatinine based estimates of kidney function, eGFR values calculated with the CKD-EPI equation are not accurate in patients with acute kidney failure, extremes of body mass or the acutely ill. http://Giiv/DHMCnkf Blood specimen (specimen) 07/01/2019 8:26 PM EST 07/01/2019 8:34 PM EST Narrative Resulting Agency Comment Spec In Lab Geraldine Mendoza MD CHEMISTRY ORDERABLES [facility] [place] [address] * Troponin (07/01/2019 8:26 PM EST) Troponin-T <0.01 0.00 - 0.00 ng/mL [facility] Comment: The 99th percentile for Troponin T is less than 0.01 ng/mL, any detectable cTnT concentration using this assay should be considered elevated. According to the third universal definition of myocardial infarction the following criteria with a clinical presentation consistent with acute myocardial ischemia meets the diagnosis for a myocardial infarction (HI). Detection of a rise and/or fall of cTnT, with at least one value greater than the 99th percentile (> or = 0.01) and with at least one of the following ?? Symptoms of ischemia ?? New or presumed new significant YN-pczxvoi-Y wave (ST-T) changes or new left bundle branch block (LBBB) ?? Development of pathologic Q waves in the ECG ?? Imaging evidence of new loss of viable myocardium or new regional wall motion abnormality ?? Identification of an intracoronary thrombus by angiography or autopsy Samples for cTnT testing should be obtained serially upon first assessment and again 3 to 6 hours later. If the clinical suspicion is high and previous samples have been negative an additional sample may be indicated. Reference: Third [place] Definition of Myocardial Infarction. Journal of the [employer] 2012;60:1581-98 Blood specimen (specimen) 07/01/2019 8:26 PM EST 07/01/2019 8:34 PM EST Narrative Resulting Agency Comment Spec In Lab Geraldine Mendoza MD CHEMISTRY ORDERABLES [facility] [place] [address] * EKG 12 Lead (07/01/2019 7:29 PM EST) [facility] Ventricular rate 75 BPM MUSE SYSTEM Atrial Rate 75 BPM MUSE SYSTEM P-R Interval 170 ms MUSE SYSTEM QRS Duration 92 ms MUSE SYSTEM Q-T Interval 354 ms MUSE SYSTEM QTC Calculated (Bezet) 395 ms MUSE SYSTEM Calculated P Johnson 31 degrees MUSE SYSTEM Calculated R Johnson -15 degrees MUSE SYSTEM Calculated T Johnson 43 degrees MUSE SYSTEM INTERPRETATION Normal sinus rhythm Minimal voltage criteria for LVH, may be normal variant Nonspecific T wave abnormality Abnormal ECG When compared with ECG of 01-JUL-2019 15:13, (unconfirmed) No significant change was found Confirmed by MD MEG, PABLO ([id number]) on 07/01/2019 9:41:50 PM MUSE SYSTEM 07/01/2019 7:29 PM EST 07/01/2019 9:41 PM EST Geraldine Mendoza MD ECG ORDERABLES Performing Organization Address City/[facility]/ZIP Co de Phone Number MUSE SYSTEM * Urinalysis with reflex Culture (07/01/2019 6:24 PM EST) Glucose UA Negative Negative mg/dL [facility] Protein UA Negative Negative mg/dL [facility] Bilirubin UA Negative Negative mg/dL [facility] Comment: Clinical correlation required for positive Urine Bilirubin results as false positive may occur with some drugs and drug related products. If a false positive is suspected a serum total bilirubin should be considered if clinically indicated. Urobilinogen UA Normal Normal mg/dL [facility] pH UA 5.0 5.0 - 8.0 [facility] Blood UA Negative Negative mg/dL [facility] Ketones UA Negative Negative mg/dL [facility] Nitrite UA Negative Negative [facility] Leukocytes UA Negative Negative [facility] Appearance UA Clear Clear [facility] Spec [place] UA 1.018 1.002 - 1.030 [facility] Color UA Yellow Yellow [facility] Culture Reflexed No [facility] Urine specimen obtained by clean catch procedure (specimen) 07/01/2019 6:24 PM EST 07/01/2019 6:42 PM EST Narrative Resulting Agency Comment Spec In Lab Elsa Farnsworth MD URINE ORDERABLES Performing Organization Address City/[facility]/ZIP Co de Phone Number [facility] [place] [address] * XR Chest PA & Lateral (Generic) (07/01/2019 4:32 PM EST) Anatomical Region Laterality Modality Chest N/A Digital Radiogra phy Impressions 07/01/2019 4:38 PM EST No acute cardiopulmonary pathology identified. Thank you for letting us participate in the care of this patient. For questions regarding this report, please contact the number below. ? Narrative 07/01/2019 4:38 PM EST EXAMINATION: XR CHEST PA AND LATERAL (GENERIC) CLINICAL HISTORY: shortness of breath, cough, bilateral LE edema, fatigue TECHNIQUE: PA and lateral views of the chest. COMPARISON: None. FINDINGS: The lungs appear clear. The cardiomediastinal silhouette, suhail, pulmonary vessels, and pleura are within normal limits. No significant osseous findings are seen. Procedure Note Clair Kyle MD - 07/01/2019 EXAMINATION: XR CHEST PA AND LATERAL (GENERIC) CLINICAL HISTORY: shortness of breath, cough, bilateral LE edema,fatigue TECHNIQUE: PA and lateral views of the chest. COMPARISON: None. FINDINGS: The lungs appear clear. The cardiomediastinal silhouette,suhail, pulmonary vessels, and pleura are within normal limits. No significantosseous findings are seen. IMPRESSION No acute cardiopulmonary pathology identified. Thank you for letting us participate in the care of this patient. Forquestions regarding this report, please contact the number below. Electronically signed by: LEONARDO Valadez [facility]([phone]), at 07/01/2019 4:38 PM Elsa Farnsworth MD IMG DX ORDERABLES * Sedimentation rate (07/01/2019 3:30 PM EST) Sed Rate 20 2 - 37 mm/hr [facility] Comment: Effective June 25, 2019 new capillary photometric technology has resulted in a change in reference ranges. It is recommended that each ESR result be reviewed with its own age appropriate reference range. Blood specimen (specimen) Venous Draw / Unknown 07/01/2019 3:30 PM EST 07/01/2019 3:43 PM EST Narrative Resulting Agency Comment Spec In Lab Geraldine Mendoza MD HEMATOLOGY ORDERABLE S [facility] [place] [address] * Gold Tube HOLD (07/01/2019 3:30 PM EST) [facility] Gold Hold Sample in lab. [facility] Blood specimen (specimen) Venous Draw / Unknown 07/01/2019 3:30 PM EST 07/01/2019 3:43 PM EST Elias Elena MD CHEMISTRY ORDERABLES Performing Organization Address City/[facility]/ZIP Co de Phone Number [facility] [place] [address] * Blue Tube HOLD (07/01/2019 3:30 PM EST) [facility] Blue Hold Sample in lab. [facility] Blood specimen (specimen) Venous Draw / Unknown 07/01/2019 3:30 PM EST 07/01/2019 3:43 PM EST Elias Elena MD HEMATOLOGY ORDERABLE S Performing Organization Address City/[facility]/ZIP Co de Phone Number [facility] [place] [address] * Differential, Automated (07/01/2019 3:30 PM EST) [facility] Neutrophils % 65.9 % [facility] Neutr Abs (ANC) 4.68 1.70 - 6.10 x10(3)/mcL [facility] Lymphocytes % 25.5 % [facility] Lymphocytes Abs 1.8 0.9 - 3.2 x10(3)/[facility] Monocytes % 6.0 % [facility] Monocyte Abs 0.4 0.3 - 0.9 x10(3)/[facility] Eosinophils % 1.5 % [facility] Eosinophils Abs 0.1 0.0 - 0.4 x10(3)/[facility] Basophils % 0.8 % [facility] Basophils Abs 0.1 0.0 - 0.1 x10(3)/[facility] Immature Gran % 0.30 % [facility] Comment: Immature granulocytes(IG's)percentage and absolute count will include metamyelocytes, myelocytes, and promyelocytes. Blood smears from CBCs yielding IG's will be scanned manually for concordance. If this scan disagrees with the automated IG or if promyelocytes are noted, a manual differential will be performed. Bridgette Gran Abs 0.02 0.00 - 0.04 x10(3)/[facility] Blood specimen (specimen) 07/01/2019 3:30 PM EST 07/01/2019 3:43 PM EST Narrative Resulting Agency Comment Spec In Lab Elias Elena MD HEMATOLOGY ORDERABLE S [facility] [place] [address] * (ABNORMAL) Hemogram (07/01/2019 3:30 PM EST) WBC 7.1 4.0 - 9.5 x10(3)/[facility] RBC 4.49(L) 4.58 - 5.54 x10(6)/[facility] Hemoglobin 14.2 13.7 - 16.5 gm/dL [facility] Hematocrit 42.3 40.5 - 48.5 % [facility] MCV 94.2(H) 82.9 - 93.1 fL [facility] MCH 31.6 27.5 - 32.1 pg [facility] MCHC 33.6 32.0 - 35.7 gm/dL [facility] Platelets 217 145 - 357 x10(3)/[facility] RDWSD 45.4(H) 36.0 - 45.0 [facility] RDWCV 13.1 11.4 - 13.8 % [facility] MPV 9.2 7.6 - 12.9 [facility] nRBC % Auto 0.0 % [facility] nRBC Abs Auto 0.000 0.000 - 0.000 x10(3)/[facility] Blood specimen (specimen) 07/01/2019 3:30 PM EST 07/01/2019 3:43 PM EST Narrative Resulting Agency Comment Spec In Lab Elias Elena MD HEMATOLOGY ORDERABLE S Performing Organization Address City/[facility]/ZIP Co de Phone Number [facility] [place] [address] * TSH (07/01/2019 3:30 PM EST) [facility] TSH 2.12 0.27 - 4.20 mcIU/mL [facility] Blood specimen (specimen) 07/01/2019 3:30 PM EST 07/01/2019 3:43 PM EST Narrative Resulting Agency Comment Spec In Lab Elsa Farnsworth MD CHEMISTRY ORDERABLES Performing Organization Address City/[facility]/ZIP Co de Phone Number [facility] [place] [address] * Troponin (07/01/2019 3:30 PM EST) [facility] Troponin-T <0.01 0.00 - 0.00 ng/mL [facility] Comment: The 99th percentile for Troponin T is less than 0.01 ng/mL, any detectable cTnT concentration using this assay should be considered elevated. According to the third universal definition of myocardial infarction the following criteria with a clinical presentation consistent with acute myocardial ischemia meets the diagnosis for a myocardial infarction (HI). Detection of a rise and/or fall of cTnT, with at least one value greater than the 99th percentile (> or = 0.01) and with at least one of the following ?? Symptoms of ischemia ?? New or presumed new significant NA-ldcpkdf-S wave (ST-T) changes or new left bundle branch block (LBBB) ?? Development of pathologic Q waves in the ECG ?? Imaging evidence of new loss of viable myocardium or new regional wall motion abnormality ?? Identification of an intracoronary thrombus by angiography or autopsy Samples for cTnT testing should be obtained serially upon first assessment and again 3 to 6 hours later. If the clinical suspicion is high and previous samples have been negative an additional sample may be indicated. Reference: Third [place] Definition of Myocardial Infarction. Journal of the [place] [employer] 2012;60:1581-98 Blood specimen (specimen) 07/01/2019 3:30 PM EST 07/01/2019 3:43 PM EST Narrative Resulting Agency Comment Spec In Lab Elsa Farnsworth MD CHEMISTRY ORDERABLES Performing Organization Address [facility] de Phone Number [facility] [place] [address] * Phosphorus (07/01/2019 3:30 PM EST) Phosphorus 3.5 2.5 - 4.5 mg/dL [facility] Blood specimen (specimen) 07/01/2019 3:30 PM EST 07/01/2019 3:43 PM EST Narrative Resulting Agency Comment Spec In Lab Elsa Farnsworth MD CHEMISTRY ORDERABLES Performing Organization Address [facility] de Phone Number [facility] [place] [place] [address] * Magnesium (07/01/2019 3:30 PM EST) Magnesium 0.83 0.69 - 1.07 mmol/L [facility] Blood specimen (specimen) 07/01/2019 3:30 PM EST 07/01/2019 3:43 PM EST Narrative Resulting Agency Comment Spec In Lab Elsa Farnsworth MD CHEMISTRY ORDERABLES [facility] [place] [address] * (ABNORMAL) Basic Metabolic Panel (non-fasting) (07/01/2019 3:30 PM EST) Glucose Lvl 104 65 - 199 mg/dL [facility] Comment:Diabetes: >=200 mg/d L plus symptoms BUN 20 10 - 20 mg/dL [facility] Creatinine 1.41 0.80 - 1.50 mg/dL [facility] Sodium 139 135 - 145 mmol/L [facility] Potassium 4.1 3.5 - 5.0 mmol/L [facility] Comment: Please note: ??Patients with WBC >100,000 may have falsely elevated Potassium levels. ??For accurate Potassium quantification in these patients send serum separator tube (gold top) for subsequent determinations. ??Contact the Clinical Chemistry Laboratory if there are any questions. Chloride 101 98 - 107 mmol/L [facility] CO2 26 22 - 31 mmol/L [facility] Anion Gap 12 5 - 15 mmol/L [facility] Calcium 9.5 8.5 - 10.5 mg/dL [facility] Estimated GFR 54(L) >=60 mL/min/1. 73 m?? [facility] Comment: The eGFR was calculated using the CKD-EPI equation. As with all creatinine based estimates of kidney function, eGFR values calculated with the CKD-EPI equation are not accurate in patients with acute kidney failure, extremes of body mass or the acutely ill. http://Giiv/[email or web address] eGFR 63 >=60 mL/min/1. 73 m?? [facility] Comment: The eGFR was calculated using the CKD-EPI equation. As with all creatinine based estimates of kidney function, eGFR values calculated with the CKD-EPI equation are not accurate in patients with acute kidney failure, extremes of body mass or the acutely ill. [email or web address]/[email or web address] Blood specimen (specimen) 07/01/2019 3:30 PM EST 07/01/2019 3:43 PM EST Narrative Resulting Agency Comment Spec In Lab Elsa Farnsworth MD CHEMISTRY ORDERABLES Performing Organization Address [facility] Co de Phone Number [facility] [place] [place] [address] * EKG 12 Lead (07/01/2019 3:13 PM EST) Ventricular rate 71 BPM MUSE SYSTEM Atrial Rate 71 BPM MUSE SYSTEM P-R Interval 162 ms MUSE SYSTEM QRS Duration 88 ms MUSE SYSTEM Q-T Interval 356 ms MUSE SYSTEM QTC Calculated (Bezet) 386 ms MUSE SYSTEM Calculated P Johnson 32 degrees MUSE SYSTEM Calculated R Johnson -17 degrees MUSE SYSTEM Calculated T Johnson 39 degrees MUSE SYSTEM INTERPRETATION Normal sinus rhythm Minimal voltage criteria for LVH, may be normal variant Borderline ECG No previous ECGs available Confirmed by MD MEG, PABLO ([id number]) on 07/01/2019 9:41:40 PM MUSE SYSTEM 07/01/2019 3:13 PM EST 07/01/2019 9:41 PM EST Elsa Farnsworth MD ECG ORDERABLES Performing Organization Address [facility] de Phone Number MUSE SYSTEM documented in this encounter Visit Diagnoses Diagnosis NSVT (nonsustained ventricular tachycardia)- Primary Paroxysmal ventricular tachycardia NSVT (nonsustained ventricular tachycardia) Paroxysmal ventricular tachycardia Ventricular tachycardia Paroxysmal ventricular tachycardia Hypertension Unspecified essential hypertension Chronic pain Other chronic pain documented in this encounter Admitting Diagnoses Diagnosis Ventricular tachycardia Paroxysmal ventricular tachycardia documented in this encounter Administered Medications Inactive Administered Medications - up to 3 most recent administrations Medication Order MAR Action Action Date Dose Rate Site amitriptyline (Elavil) tablet 25 mg 25 mg, Oral, NIGHTLY, First dose on Sun07/01/19 at 2100, Until Discontinued, Routine Given 07/02/2019 8:18 PM EST 25 mg Given 07/01/2019 9:07 PM EST 25 mg atorvastatin (Lipitor) tablet 20 mg 20 mg, Oral, DAILY, First dose on Sun07/03/19 at 0900, Until Discontinued, Routine Given 07/03/2019 8:33 AM EST 20 mg carbidopa-levodopa (Sinemet) 25-100 mg per tablet 1 tablet 1 tablet, Oral, NIGHTLY, First dose on Sun07/01/19 at 2100, Until Discontinued, Routine Given 07/02/2019 8:18 PM EST 1 tablet Given 07/01/2019 9:08 PM EST 1 tablet furosemide (Lasix) tablet 20 mg 20 mg, Oral, 2 TIMES DAILY, First dose on Sun07/02/19 at 0900, Until Discontinued, Routine Given 07/03/2019 8:3 3 AM EST 20 mg Given 07/02/2019 4:18 PM EST 20 mg Given 07/02/2019 10:07 AM EST 20 mg heparin (Porcine) subcutaneous injection 5,000 Units 5,000 Units, Subcutaneous, EVERY 8 HOURS SCHEDULED, First dose on Sun07/01/19 at 2200, Until Discontinued, Routine Given 07/03/2019 6:23 AM EST 5,000 Unit s Given 07/02/2019 11:34 PM EST 5,000 Units Given 07/02/2019 4:18 PM EST 5,000 Units HYDROmorphone (Dilaudid) tablet 4 mg 4 mg, Oral, ONCE, 1 dose, On Sun07/01/19 at 2215, Routine Given 07/01/2019 10:03 PM EST 4 mg HYDROmorphone (Dilaudid) tablet 4 mg 4 mg, Oral, ONCE PRN, 1 dose, Starting on Sun07/02/19 at 2002, Until Sun07/02/19 at 2017, Pain, Routine Given 07/02/2019 8:17 PM EST 4 mg losartan (Cozaar) tablet 50 mg 50 mg, Oral, EVERY EVENING, First dose on Sun07/01/19 at 2015, Until Discontinued, Routine Given 07/02/2019 8:1 9 PM EST 50 mg Given 07/01/2019 9:08 PM EST 50 mg metoprolol tartrate (Lopressor) tablet 12.5 mg 12.5 mg, Oral, EVERY 12 HOURS SCHEDULED (2 times per day), First dose on Sun07/02/19 at 2100, Until Discontinued, Routine Given 07/03/2019 8:33 AM EST 12.5 mg Given 07/02/2019 8:17 PM EST 12.5 mg pantoprazole EC (Protonix) tablet 20 mg 20 mg, Oral, DAILY, First dose on Sun07/02/19 at 0900, Until Discontinued Given 07/03/2019 8:33 AM EST 20 mg Given 07/02/2019 10:08 AM EST 20 mg perflutren protein-A microspheres (OPTISON) 0.22 mg/mL injection 1.8 mL 1.8 mL, Intravenous, ONCE PRN, 1 dose, Starting on Sun07/02/19 at 0930, Until Sun07/02/19 at 0930, for enhancement of sub-optimal echo images, Echo Lab (Intra-Procedure), Routine Given 07/02/2019 9:30 AM EST 1.8 mLs regadenoson (LEXISCAN) injection 0.4 mg 0.4 mg, Intravenous, ONCE, 1 dose, On Sun07/02/19 at 1445, Routine Given 07/02/2019 2:15 PM EST 0.4 mg sertraline (Zoloft) tablet 25 mg 25 mg, Oral, EVERY EVENING, First dose (after last reorder) on Sun07/02/19 at 1700, Until Discontinued, Routine Given 07/02/2019 4:18 PM EST 25 mg sodium chloride 0.9 % (flush) flush 5 mL 5 mL, Intravenous, 2 TIMES DAILY, First dose on Sun07/01/19 at 2100, Until Discontinued, Routine Given 07/03/2019 9:00 AM EST 5 mLs Given 07/02/2019 8:19 PM EST 5 mLs sodium chloride 0.9 % (flush) flush 5 mL 5 mL, Intravenous, 2 TIMES DAILY, First dose on Sun07/01/19 at 2100, Until Discontinued, Routine Given 07/03/2019 9:00 AM EST 5 mLs Given 07/02/2019 8:18 PM EST 5 mLs Given 07/01/2019 9:11 PM EST 5 mLs technetium (Tc-99m) sestamibi injection 30 mCi 30 mCi, Intravenous, ONCE PRN, 1 dose, Starting on Sun07/02/19 at 1415, Until Sun07/02/19 at 1415, Per Protocol, Routine Given 07/02/2019 2:15 PM EST 30 m Ci technetium (Tc-99m) sestamibi injection 8.9 mCi 8.9 mCi, Intravenous, ONCE PRN, 1 dose, Starting on Sun07/02/19 at 1315, Until Sun07/02/19 at 1215, Per Protocol, Routine Given 07/02/2019 12:15 PM EST 8.9 mCi documented in this encounter Active and Recently Administered Medications Times are shown in EST. Scheduled Medication Order 07/01/2019 07/02/2019 07/03/2019 amitriptyline (Elavil) tablet 25 mg 25 mg, Oral, NIGHTLY, First dose on Sun07/01/19 at 2100, Until Discontinued, Routine 2106 (Given - Provider: Delroy Napoles RN) 2017 (Given - Provider: Corinne Guevara RN) atorvastatin (Lipitor) tablet 20 mg 20 mg, Oral, DAILY, First dose on Sun07/03/19 at 0900, Until Discontinued, Routine 0833 (Given - Provider: Nadeen Lewis RN) carbidopa-levodopa (Sinemet) 25-100 mg per tablet 1 tablet 1 tablet, Oral, NIGHTLY, First dose on Sun07/01/19 at 2100, Until Discontinued, Routine 210 (Given - Provider: Delroy Napoles RN) 2017 (Given - Provider: Corinne Guevara RN) furosemide (Lasix) tablet 20 mg 20 mg, Oral, 2 TIMES DAILY, First dose on Sun07/02/19 at 0900, Until Discontinued, Routine 1007 (Given - Provider: Maria G Srinivasan RN)1618 (Given - Provider: Maria G Srinivasan RN) 0833 (Given - Provider: Nadeen Lewis RN) heparin (Porcine) subcutaneous injection 5,000 Units 5,000 Units, Subcutaneous, EVERY 8 HOURS SCHEDULED, First dose on Sun07/01/19 at 2200, Until Discontinued, Routine 210 (Given - Provider: Delroy Napoles RN) 0609 (Given - Provider: Delroy Napoles RN)1618 (Given - Provider: Maria G Srinivasan RN - Comment: stress)2334 (Given - Provider: Corinne Guevara RN) 0623 (Given - Provider: Corinne Guevara RN) HYDROmorphone (Dilaudid) tablet 4 mg (COMPLETED) 4 mg, Oral, ONCE, 1 dose, On Sun07/01/19 at 2215, Routine 2203 (Given - Provider: Delroy Napoles RN) losartan (Cozaar) tablet 50 mg 50 mg, Oral, EVERY EVENING, First dose on Sun07/01/19 at 2015, Until Discontinued, Routine 2107 (Given - Provider: Delroy Napoles RN) 2018 (Given - Provider: Corinne Guevara RN) metoprolol tartrate (Lopressor) tablet 12.5 mg 12.5 mg, Oral, EVERY 12 HOURS SCHEDULED (2 times per day), First dose on Sun07/02/19 at 2100, Until Discontinued, Routine 2017 (Given - Provider: Corinne Guevara RN) 0833 (Given - Provider: Nadeen Lewis RN) pantoprazole EC (Protonix) tablet 20 mg 20 mg, Oral, DAILY, First dose on Sun07/02/19 at 0900, Until Discontinued 1008 (Given - Provider: Maria G Srinivasan RN) 0833 (Given - Provider: Nadeen Lewis RN) regadenoson (LEXISCAN) injection 0.4 mg (COMPLETED) 0.4 mg, Intravenous, ONCE, 1 dose, On Sun07/02/19 at 1445, Routine 1415 (Given - Provider: Reina Mina) sertraline (Zoloft) tablet 25 mg 25 mg, Oral, EVERY EVENING, First dose (after last reorder) on Sun07/02/19 at 1700, Until Discontinued, Routine 1618 (Given - Provider: Maria G Srinivasan RN) sodium chloride 0.9 % (flush) flush 5 mL 5 mL, Intravenous, 2 TIMES DAILY, First dose on Sun07/01/19 at 2100, Until Discontinued, Routine 2100 (Not Given - Provider: Delroy Napoles RN - Reason: See comment) 0900 (Not Given - Provider: Maria G Srinivasan RN - Reason: Patient not available)2018 (Given - Provider: Corinne Guevara RN) 0900 (Given - Provider: Nadeen Lewis RN) sodium chloride 0.9 % (flush) flush 5 mL 5 mL, Intravenous, 2 TIMES DAILY, First dose on Sun07/01/19 at 2100, Until Discontinued, Routine 2110 (Given - Provider: Delroy Napoles RN) 0900 (Not Given - Provider: Maria G Srinivasan RN - Reason: Patient not available - Comment: echo)2017 (Given - Provider: Corinne Guevara, BRIANNA) 0900 (Given - Provider: Nadeen Lewis RN) PRN Medication Order 07/01/2019 07/02/2019 07/03/2019 acetaminophen (Tylenol) tablet 650 mg 650 mg, Oral, EVERY 4 HOURS PRN, Starting on Sun07/01/19 at 1946, Until Sun07/03/19 at 1538, Pain, Headaches, Maximum dose of acetaminophen is 4000 mg from all sources in 24 hours., Routine HYDROmorphone (Dilaudid) tablet 4 mg (COMPLETED) 4 mg, Oral, ONCE PRN, 1 dose, Starting on Sun07/02/19 at 2003, Until Sun07/02/19 at 2017, Pain, Routine 2016 (Given - Provider: Corinne Guevara RN) lidocaine (XYLOCAINE) 10 mg/mL (1 %) injection 3 mg 3 mg (0.3 mL), Subcutaneous, ONCE PRN, 1 dose, Starting on Sun07/01/19 at 1946, Until Sun07/03/19 at 1538, for discomfort with PIV insertion, Routine nitroGLYcerin (Nitrostat) disintegrating tablet 0.4 mg 0.4 mg, Sublingual, EVERY 5 MIN PRN, Starting on Sun07/01/19 at 1946, Until Sun07/03/19 at 1538, Chest pain, May repeat every 5 minutes for a total of three doses. Notify provider if chest pain not relieved with nitroglycerin. Do not administer nitroglycerin if the patient has received or taken phosphodiesterase (PDE-5) inhibitors such as sildenafil, tadalafil or vardenafil within the last 24 to 72 hours., Routine perflutren protein-A microspheres (OPTISON) 0.22 mg/mL injection 1.8 mL (COMPLETED) 1.8 mL, Intravenous, ONCE PRN, 1 dose, Starting on Sun07/02/19 at 0930, Until Sun07/02/19 at 0930, for enhancement of sub-optimal echo images, Echo Lab (Intra-Procedure), Routine 0930 (Given - Provider: Doreen Brenner) sodium chloride 0.9 % (flush) flush 5-20 mL 5-20 mL, Intravenous, EVERY 1 MIN PRN, Starting on Sun07/01/19 at 1946, Until Sasha 07/03/19 at 1538, flush, Flush pertains to all indwelling lines. Flush per protocol found in the job aid using the link provided on this medication record., Routine sodium chloride 0.9 % (flush) flush 5-20 mL 5-20 mL, Intravenous, EVERY 1 MIN PRN, Starting on Sun07/01/19 at 1946, Until Sasha 07/03/19 at 1538, flush, Flush pertains to all indwelling lines. Flush per protocol found in the job aid using the link provided on this medication record., Routine technetium (Tc-99m) sestamibi injection 30 mCi (COMPLETED) 30 mCi, Intravenous, ONCE PRN, 1 dose, Starting on Sun07/02/19 at 1415, Until Sun07/02/19 at 1415, Per Protocol, Routine 1415 (Given - Provider: Reina Mina) technetium (Tc-99m) sestamibi injection 8.9 mCi (COMPLETED) 8.9 mCi, Intravenous, ONCE PRN, 1 dose, Starting on Sun07/02/19 at 1315, Until Sun07/02/19 at 1215, Per Protocol, Routine 1215 (Given - Provider: Sudhakar Molina - Comment: ZACHARIAH) documented in this encounter Care Teams Ships Or Barges Loader Relationship Specialty Start Date End Date Prince Murray DO [address] [place] [address] [address] [place] [address] PCP - General 06/07/10 documented as of this encounter
--- OUTSIDE RECORDS SUMMARY | 2024-02-01 00:22 | XMS_ITS | Encounter Summary ---
Author Organization [facility] [place] [address] Care Team Providers Care Drawing Supervisor Name Role Phone Prince Murray DO Primary Care Provider Reason for Visit * Reason Comments Medication Refill Encounter Details Date Type Department Care Team (Late st Contact Info) Description 12/27/2019 Refill Cardiology at [address] [place] [address] Kimber Avila APRN [facility] [place] [address] Medication Refill Social History Tobacco Use Types [...] on filedocumented in this encounter Care Teams Drawing Supervisor Relationship Specialty Start Date End Date Prince Murray DO [address] [place] [address] PCP - General 06/07/10 documented as of this encounter
--- OUTSIDE RECORDS SUMMARY | 2024-02-01 00:22 | XMS_ITS | Encounter Summary ---
Author Organization [facility] [place] [address] Care Team Providers Care Feather Renovator Name Role Phone Prince Murray DO Primary Care Provider Reason for Visit * Reason Comments Basal Cell Carcinoma Encounter Details Date Type Department Care Team (Latest Contact Info) Description 04/22/2020 9:30 AM EDT Procedure visit Dermatology at [address] [id number] Kris Hill MD [facility] DR [place] [address] Basal cell carcinoma (BCC) of left medial [...] Sign Reading Time Taken Comments Blood Pressure 129/76 04/22/2020 9:24 AM EDT Pulse 67 04/22/2020 9:24 AM EDT Temperature - - Respiratory Rate - - Oxygen Saturation - - Inhaled Oxygen Concentration - - Weight - - Height - - Body Mass Index - - documented in this encounter Patient Instructions * Patient Instructions* Yamile Ulrich I, SYL - 04/22/2020 9:30 AM EDT Your staff surgeon today was Kris Hill MD,PhD. Your wound(s) was repaired by [id number] stitches called a primary repair. You do not need to come back for suture removal because only absorbable sutures were used today. If the absorbable sutures bother your skin or do not absorb after 2 weeks, you may call us to remove them for you. Instructions are as below. Please keep this as a reference: Wound Care For wounds closed with absorbable-only stitches: ??? Gently remove your initial bandage (after 48 hours from surgery) and begin wound care as below. ??? If your initial bandage only lasts 24 hours (for example, falls off sooner), this is okay. Resume your wound care and bandaging instructions as below. ??? Change your bandage once a day (and whenever it becomes wet or soaks through). DO WOUND CARE FOR ONE WEEK. ??? For bandage changes: o Wash hands with soap and water, or use gloves that you can purchase a local pharmacy or drug store. o Clean the surgical area with cotton-tipped swabs or gauze dipped in soapy water (recommend liquidsoap in clean room temperature water). Do not scrub the area or put direct shower water pressure onto your wound. It is okay to allow soapy water to run over your wound in the shower. o If you cannot remove crusted areas, you may soak with wet gauze first for 15 to 20 minutes to help soften it. o Pat the area dry with clean gauze or cotton swabs. Do not rub. o Use a cotton swab to apply a generous layer of petroleum jelly over the incision lines and any open-wound areas. o Cover with clean nonstick gauze or other nonstick dressing, such as Telfa. This may be purchased over the counter at a drug store. Secure with paper tape or bandage. Band-aids are okay, but typically have more adhesive that can irritate the skin compared to paper tape. o Discontinue wound care after 7 days. If any portion of the incision was left open to heal on its own, continue to apply Vaseline daily until healed. o Allow the absorbable stitches to heal. If the top stitches that are absorbable are irritating your skin, you may call us to have them removed. Otherwise, they will be absorbed naturally in approximately 2 weeks. It may absorb as quickly as 4 days. o Keep in mind that if you do not want to use a bandage at all due to difficulty, allergies, irritation of skin, cost, time, or inconvenience --- you can certainly avoid bandages altogether. However,it is imperative that you continue with topical petrolatum ointment or Aquaphor (plain, fragrance-free). This may need to be applied several times daily if it gets wiped off, washed off, or dries out. Things to purchase for wound care: -Nonstick gauze -A tube or tub of petrolatum jelly (fragrance-free, no dye, not lotion) -paper tape -cotton swabs -gloves (optional) -Dial or other antibacterial liquid soap After Surgery 1. If you are a tobacco user please attempt to decrease the amount of tobacco products used following surgery for 1-2 weeks. 2. Limit alcohol intake to one drink per day for the next 3 days. 3. Do not participate in athletic activities for 5-7 days, unless you were told a different timeline during your visit. Athletic activity is a relative term, but this is considered to be anything that could potentially raise your heartrate or blood pressure. Elevating your heart rate and blood pressure increases the risk of swelling, bleeding, wound opening, and it could lead to worse scarring. Walking at a leisurely pace is fine for most people, but not if you are walking for the purpose of exercise. When in doubt, take it easy or call us. 4. Do not lift anything heavier than 10 pounds for 5-7 days postoperatively. 5. Some big data platform architect may need to be delayed or delegated such as vacuuming, mowing the lawn, snow shoveling, or caring for young children that need to be carried/lifted. Working any major muscle groups increases your heart rate and can increasing bleeding. 6. Avoid swimming, hot tubs, and direct water pressure for 3 weeks after surgery. You may shower, however, once your initial bandage comes off in 48 hours. 7. Avoid antibiotic ointments such as triple antibiotic creams. Stick with your wound care instructions, please. 8. Whenever possible, it is helpful to take photographs with your camera or cell phone of any problems or concerns you see with your wound. We often ask for photos when you call with questions. 9. Starting 2 months following surgery, you can begin firm massage to any areas of firm scar along your incision to soften the scar and reduce bumpiness. Do this 3 times per day, 3 minutes each time.Do not start massage before 2 months. 10. Your wound will appear almost completely healed soon after sutures are removed (about 1 week), but incisions can remain bright red for several weeks. Then the scarring and healing process continues under the skin for 6 months until to 2 years. The scar may become less red, less firm, and more subtle during this time; please note that the rate of improvement varies depending on the person. Most redness, discoloration, bumpiness resolves by 6 months, and most patients will look presentable within a few weeks after surgery. 11. Keep your follow-up appointments and make sure to continue to have your skin checked, as often as is recommended by your urgent care physician, for new skin cancers. This is once per year for most patients. 12. Your can expect your scar to be red for several weeks with gradual fading of the redness. Your scar will also be raised and lumpy until the dissolvable sutures under the skin get absorbed by yourbody which can take 3-4 months. The scar will flatten eventually. a. If you have a skin condition called rosacea, the redness can last long-term, or you can get an increased appearance of red vessels to the skin. The appearance of vessels slightly improves, but tends to respond well to laser treatments. 13. Occasionally, about 20% of the time on the face, the stitches under the skin can spit out of the incision to the surface. It can start out looking like a pimple or blemish directly on your incision. Sometimes you can feel something poking through the incision. it can look also minic a small area of infection, so please let us know before you go to another provider for antibiotics. This means that the suture may need to be trimmed or removed when you return for your wound check. This typically occurs a few weeks after surgery if it does occur. 14. To optimize your scar, and best cosmetic result, please avoid direct sunlight to your incision for the first 6 months following surgery. UV ray exposure to your incision may cause the redness to last longer, or to cause permanent darkening of your scar. You can avoid sun by covering your incision with a bandage when outdoors, wearing broad-rimmed hats, and wearing SPF 30 to 50 sunscreen (broad spectrum). 15. Any time you have skin surgery or any type of surgery, you can experience mild sensation loss (numbness) in the area of surgery. Massage starting at 8 weeks after surgery can help. 16. Swelling and bruising is common, and expected, especially if your surgery site was on the forehead, cheeks, temples, nose, or eyelids. . Sometimes it can be quite profound, where the eyelids swell shut, or getting black eyes. This is especially true if you are on blood thinners such as aspirin. Swelling and bruising will peak at about 48 hours after surgery. Bruising and swelling will gradually resolve. You can use ice packs or a bag of frozen peas for 15-20 minutes, 20 minutes off, up to3-4 times daily to areas of swelling on the face. Use caution not to put the icy item directly ontoyour incision, or directly in contact with your skin as this can damage skin. Avoid prolonged use more than 20 minutes. The best way to use ice packs is over the bandage, or using a light cloth/papertowel barrier between the ice pack and your skin. You can ice for as many days as needed until swelling has resolved. Eyelid and lip swelling is typically the last type of swelling to resolve. Antibiotics: If you were given antibiotic prescription, it is important to start them the evening of your surgery date. However, most patients do not need antibiotics after surgery. For pain: Most patients of different ages do not require pain medications. If you do feel soreness, throbbingor sharp pains, start by taking over the counter extra strength acetaminophen (up to 3000 mg in a 24 hour period). Generally, we like you to avoid NSAIDS (non-steroid anti-inflammatory drugs such as ibuprofen) for the first 48 hours after surgery as this can increase risk of bleeding. However, if acetaminophen is not helping with pain, you can alternate acetaminophen with iburpofen or other NSAID. Ice packs over your bandage without getting your bandage wet can also help with pain and swelling.Frozen peas work well as ice packs. THIS IS AN EXAMPLE OF A PAIN TREATMENT SCHEDULE: 1) You can take 500 mg acetaminophen one tablet by mouth at 6:00pm. This is over the counter. 2) You can take 400 mg of ibuprofen two hours later, at 8:00 pm, or other NSAID such as naproxen, as long as it does not interact with your other medications and your other doctors have not told you to avoid this. This is over the counter. Check to see how many milligrams (mg) each of your ibuprofen tablets are. Most of the time, ibuprofen comes in 200 mg tablets, so 400 mg would mean taking two of these tablets or capsules. 3) You can take 500 mg of acetaminophen at 10:00 pm. Keep track of your total acetaminophen in a 24hour period as your maximum should be 3000 mg total in a 24 hour period of this medication. 4) At midnight, you can take another 400 mg of ibuprofen. 5) you can continue on this schedule over the next 2 days, making sure to keep tabs of your total acetaminophen. If you are still in pain after trying the above, please call us. When to call your surgeon: ??? Fever of 100.4 degrees Fahrenheit or higher ??? Bleeding not controlled with direct firm pressure to your wound. Bleeding is most common in thefirst 48 hours. ??? Pain that is worsening and not relieved by over the counter medications such as acetaminophen (up to 3000 mg in a 24 hour period) ??? Wound reopening after stitching ??? Pus or bad odor from your wound ??? Worsening redness and warmth around your wound ??? If you think your surgery site is infected, please call us before seeking care or antibiotics from other providers ??? Please call us before seeking care in an emergency room or primary care. ??? If you do call, please leave your full name, phone number, date of , date of surgery, and medical record number if you have it. If after hours, please call the machine tool operator or [phone] and ask for the urgent care physician on-call. If you have any non-urgent questions or concerns, please feel free to call my office or contact me through our patient portal, [employer], at [email or web address] How to contact us during business hours Dermatology at [facility]: Mohs scheduling or Mohs follow-up appointments: [phone] documented in this encounter Progress Notes * Kris Hill MD - 04/22/2020 9:30 AM EDT Images from the original note were not included. Summary of Procedure(s): Site: left medial cheek Tumor Type: Basal Cell Carcinoma, infiltrative Stages to clear tumor: 1 Repair: Complex linear closure Images: The patient was asked to call with any issues and is aware that I am available 05/02 should questions arise. Please note that I have reviewed the preoperative checklist from today's nursing visit including relevant social history and medications. I have reviewed the preoperative photos if available and the biopsy report. VITAL SIGNS: BP 129/76 (BP Location (NBP): Left arm, Patient Position: Sitting, BP Cuff Sizes: Large Adult (32-43 cm)) Pulse 67 PHYSICAL EXAMINATION: General: patient is awake, alert, oriented and in no acute distress. Skin: Focused examination of surgical site(s) performed which shows a well healed biopsy site with surrounding poorly defined pearly plaque. PHYSICIAN REVIEW OF REPORTS, RECORDS, IMAGES: 1) The accompanying pathology report(s) associated with aforementioned biopsy slide(s) were/was also reviewed. Assessment: Guy Tavarez is a 60 y.o. male presenting for: 1. Biopsy-proven basal cell carcinoma, infiltrative located on the left medial cheek. Plan: 1. Findings from the biopsy report, today's clinical exam, and other pertinent details were reviewed with patient today. All questions were answered. 2. Discussed treatment options based on the above findings. We recommended Mohs micrographic surgery for treatment of this tumor. Mohs micrographic surgery was indicated due to patient, site and/or tumor characteristics (see operative report for specific indication). 3. We discussed risks, benefits, and alternative treatment options to the Mohs micrographic surgeryprocedure and pertinent information including but not limited to the following: ?? Risks include bleeding, infection, scar, recurrence, incomplete tumor removal or inability to cure with surgery alone if the tumor features are more aggressive than the initial pathology indicates. Occasionally, additional adjuvant treatments may be recommended. Additional risks include large wound, prolonged wound and healing, pain, swelling, bruising, increased appearance of vessels or worsening erythema of baseline skin; more rarely risks include damage to underlying structures such as nerves, cartilage, or muscle which could lead to temporary or permanent loss of sensation or motor function. ?? Benefit is precise tumor removal ?? If reconstruction is performed, it is specific to the patient and defect. ?? Discussed that the shape, size, depth of the wound is often not known until the tumor is clearedand thus the reconstruction options are sometimes not known until after tumor clearance. Occasionally, referrals to other providers may be recommended for reconstruction based on patient preference and need. ?? Reviewed the pros and cons of common reconstructions used for this tumor type, size, and location, and that reconstruction may lead to change in appearance. ?? Natural history of scar was discussed, including that the scar will continue to mature for 1-2 years. Recommended avoidance of special ointments or scar creams, and avoidance of direct sun exposure to the scar for optimal recovery. ?? Reviewed that there are some aspects of cosmesis that are dependent on patient's characteristicssuch as age, skin laxity/texture factors, inflammatory skin diseases such as rosacea, prior surgery/radiation, degree of actinic damage, smoking status, strength of the patient's immune system, diligent wound care, medications, and genetics. ?? Having Mohs surgery may lead to physical limitations for optimal healing, such as restricted physical activity and heavy lifting. 4. The nature of sun-induced photo-aging and skin cancers was discussed. Recommended sun avoidance when possible, especially peak hours of sun 10 am to 2pm, protective clothing such as wide-brimmed hats and long-sleeved clothing, and the use of SPF broad-spectrum sunscreen SPF 50 or higher. 5. Signs and symptoms of skin cancer reviewed. Patient to report any new, changing, or symptomatic lesions and follow up with his or her urgent care physician or other skin provider. 6. Discussed avoiding direct sun exposure to scars for best cosmetic result. Note initiated by SLY Hampton CMA has performed the documentation for this encounter in the presence of and acting as a scribe for Dr. Hill I performed the above scribed service and agree with the accuracy of the documentation in this encounter. Reviewed and signed by: Kris Hill [facility] * Kris Hill MD - 04/22/2020 9:30 AM EDT Mohs micrographic Surgery Operative Report Patient name: Guy Tavarez : 1960 Date: 04/22/2020 Staff Surgeon: Kris Hill MD PhD Nursing/Wicker Molded Candles(s): Anita Byrd RN, Jessa Vega CMA, Laney Oteroascension borgess hospitalMalika YOUTH LEADER, Yamile Ulrich CMA Closing Agent (s): Danielle Reyes Pre-operative diagnosis: Basal Cell Carcinoma, infiltrative Post-operative diagnosis: Basal Cell Carcinoma, infiltrative Location/Site: left medial cheek Procedure: Mohs micrographic surgery Indication(s) for Mohs micrographic surgery: Anatomic location for tissue conservation Stages: 1 Preoperative size of tumor: 1.0 x 0.6 cm Stage I The nature and purpose of the procedure, associated risks, possible consequences and complications,and alternative forms of treatment were explained in detail. We reviewed the possible repairs basedon the clinical appearance of tumor but discussed that often the repair options may not be known until the tumor has trey extirpated. Informed consent and permission to take photographs were obtained. The site was confirmed with the patient/authorized insurance healthcare representative/referring physician and/or a photograph form time of biopsy. A pre-operative time-out (procedural pause) was conducted with no unresolved discrepancies noted. Local anesthesia was obtained with 1% lidocaine with 1:100,000 epinephrine. The surgical site was prepped and draped in the usual sterile manner. With all visible gross tumor completely excised, the borders of the tumor and 2- 3 mm margins were excised as a complete layer. Hemostasis was achieved by electrocoagulation. The excised tissue was oriented and divided into 2 sections, chromacoded, and submitted for frozen sections. The patient tolerated the procedure well and without complications. On microscopic evaluation of the frozen sections, no residual tumor was identified on the deep or outer border of the sections. The final size of the defect after complete tumor removal was 1.4 x 1.0 cm, extending to level of subcutaneous tissue. Repair Operative Report (Complex Linear Repair) Patient name: Guy Tavarez : 1960 Clinical Diagnosis: 1.4 x 1.0 cm surgical defect secondary to Mohs microscopically controlled excision Location/Site: left medial cheek Indication: repair of wound for pentecostalism of function/anatomy Procedure: Complex linear layered closure of Mohs defect Due to the size and location of the defect resulting from the complete removal of the tumor, the postoperative risk of hemorrhage, infection, and the possibility of serious deformity from scarring, and in order to restore proper function and prevent loss of function, the defect was closed in the following manner. The nature and purpose of the procedure, associated risks, possible consequences, complications andalternative methods of treatment were explained to the patient in detail. An informed consent was obtained. The operative site was anesthetized with 1% lidocaine with 1:100,000 epinephrine. The site was prepped and draped in the usual sterile manner. The edges of the defect were widely undermined at the dermal subcutaneous layer in all directions greater than the width of the defect as stated above. Hemostasis was achieved with electrocoagulation. The edges could then be approximated without excess tension. The deep tissues were apposed and sutured with 4.0 Monocryl sutures and the epidermal edges were approximated with 5.0 Fast Absorbing Gut running and/or interrupted sutures. .The resulting complex linear closure measured 3.2 cm. The surgical site was cleaned and white petrolatum with a gauze pressure dressing applied. The patient tolerated the procedure well and without complications and was given both verbal and written instruction on postoperative wound care. Follow up as needed. The patient was discharged in good condition. Total local anesthesia with 1% lidocaine with 1:100,000 epinephrine used: 6 cc Total local with 0.25% bupivacaine with 1:100,000 epinephrine used: 3 cc Kris Hill MD PhD Mohs Micrographic Surgery and Dermatologic Oncology Section of Dermatology, Department of Surgery Note initiated by SYL Gaviria CMA has performed the documentation for this encounter in the presence of and acting as a scribe for Dr. Hill I performed the above scribed service and agree with the accuracy of the documentation in this encounter. Reviewed and signed by: Kris Hill [facility] documented in this encounter Plan of Treatment Not on file documented as of this encounter Visit Diagnoses Diagnosis Basal cell carcinoma (BCC) of left medial cheek documented in this encounter Care Teams Feather Renovator Relationship Specialty Start Date End Date Prince Murray DO [address] [place] [address] PCP - General 06/07/10 documented as of this encounter
--- OUTSIDE RECORDS SUMMARY | 2024-02-01 00:22 | XMS_ITS | Clinical Summary ---
Author Organization Formerly [facility] Address [facility] [place] [address] Care Team Providers Care Terra Cotta Setter Name Role Phone Prince Murray DO Primary Care Provider [phone] Allergies Active Allergy Reactions Criticality Noted Date Comments Amlodipine Other (See Comments) 07/01/2019 Edema Latex 06/16/2020 Lisinopril Other (See Comments) 07/01/2019 cough Metoprolol Other (See Comments) 07/01/2019 dizziness Medications Medication Sig Dispensed Refills Start Date End Date Status amitriptyline (ELAVIL) 25 mg TabletIndications:Se nsory neuronopathy Take 25 mg by mouth nightly. 04/21/2016 Active HYDROmorphone (DILAUDID) 2 mg TabletIndications:Se nsory neuronopathy Take 2 mg by mouth every 6 hours as needed for Pain. Takes 4mg in evening 06/16/2015 Active indomethacin (INDOCIN) 50 mg CapsuleIndications:S ensory neuronopathy Take 50 mg by mouth 3 times daily as needed. 02/01/2016 Active furosemide (LASIX) 20 mg TabletIndications:Se nsory neuronopathy Take 20 mg by mouth 2 times daily. Alternates between 40mg daily and 20mg daily 04/02/2013 Active lidocaine (LIDODERM) 5 % Adhesive Patch, MedicatedIndications :Sensory neuronopathy 1 patch daily as needed (Foot spasms). 10/22/2013 Active omeprazole (PRILOSEC) 20 mg Capsule, Delayed Release(E.C.)Indicat ions:Sensory neuronopathy Take 20 mg by mouth daily. Active multivitamin (THERAGRAN) TabletIndications:Ne uropathy Take 1 tablet by mouth daily. Active MAGNESIUM CHLORIDE (MAG 64 ORAL)Indications:Hamida ropathy Take 1 tablet by mouth 2 times daily. Active carbidopa-levodopa (SINEMET) 25-100 mg TabletIndications:Ne uropathy Take 1 tablet by mouth nightly. 3 10/14/2016 Active sertraline (ZOLOFT) 25 mg Tablet Take 12.5 mg by mouth every evening. Active losartan (COZAAR) 50 mg Tablet Take 50 mg by mouth every evening. Active triamcinolone (NASACORT OR NASACORT OTC) 55 mcg Aerosol, [place] 2 sprays by Nasal route 2 times daily. Active atorvastatin (LIPITOR) 20 mg Tablet Take 1 tablet by mouth daily. 30 tablet 5 07/04/2019 Active metoprolol succinate XL (TOPROL-XL) 25 mg Tablet Sustained Release 24 hr Take 1 tablet by mouth daily. 30 tablet 5 07/03/2019 Active Active Problems Problem Noted Date Diagnosed Date NSVT (nonsustained ventricular tachycardia) 06/15 Hypertension 07/01/2019 CIDP (chronic inflammatory demyelinating polyneu ropathy) 07/01/2019 Gout 07/01/2019 Fatty liver 07/01/2019 Chronic pain 07/01/2019 Immunizations Name Administration Dates Next Due Influenza Quadrivalent, Preservative Free 2018 Social History Tobacco Use Types Packs/Day Years Used Date Smoking Tobacco: Never Smokeless Tobacco: Never Alcohol Use Standard Drinks/Week Comments Yes 3 (1 standard drink = 0.6 oz pur e alcohol) Sex and Gender Information Value Date Recorded Sex Assigned at Not on file Gender Identity Not on file Sexual Orientation Not on file Last Filed Vital Signs Vital Sign Reading Time Taken Comments Blood Pressure 129/76 04/22/2020 9:24 AM EDT Pulse 67 04/22/2020 9:24 AM EDT Temperature 36.8 ??C (98.2 ??F) 07/03/2019 1 1:35 AM EST Respiratory Rate 16 07/03/2019 11:3 5 AM EST Oxygen Saturation 98% 07/03/2019 11: 35 AM EST Inhaled Oxygen Concentration - - Weight 124.1 kg (273 lb 9.5 oz) 07/03/2019 6:19 AM EST Height 193 cm (6' 4) 07/01/2019 7:50 PM EST Body Mass Index 33.3 07/01/2019 7:50 PM EST Plan of Treatment Health Maintenance Due Date Last Done Comments CT Colonography 1960 Colonoscopy 1960 Colorectal Cancer Screening 1960 FIT DNA 1960 FIT 1960 Sigmoidoscopy (10 year) with FIT yearly 1960 Sigmoidoscopy 1960 HIV screen 1978 Hepatitis C Screening 1978 Tdap adult 1979 Tetanus vaccine 1979 Zoster vaccine (1 of 2) 2010 Advance Directive 2015 Covid-19 Vaccine (1 - 2022-2 4 season) 2023 Influenza (Flu) vaccine (1 o f 1 - Influenza standard series) 03/16/2024 07/03/2019 Diabetes Screening (HgbA1C o r Glucose) Discontinued 07/02/2019, 07/02/2019, 07/01/2019, Additional history exists Procedures Procedure Name Priority Date/Time Associated Diagnosis Comments HC VENIPUNCTURE STAT 07/02/2019 4:13 AM EST from Last 3 Months or Most Recently Relevant to Health Maintenance Results * Basic Metabolic Panel (non-fasting) (07/02/2019 4:13 AM EST) Glucose Lvl 97 65 - 199 mg/dL [facility] Comment:Diabetes: >=200 mg/d L plus symptoms BUN 19 10 - 20 mg/dL [facility] Creatinine 1.19 0.80 - 1.50 mg/dL [facility] Sodium 141 135 - 145 mmol/L [facility] Potassium 4.3 3.5 - 5.0 mmol/L [facility] Comment: Please note: ??Patients with WBC >100,000 may have falsely elevated Potassium levels. ??For accurate Potassium quantification in these patients send serum separator tube (gold top) for subsequent determinations. ??Contact the Clinical Chemistry Laboratory if there are any questions. Chloride 103 98 - 107 mmol/L [facility] CO2 25 22 - 31 mmol/L [facility] Anion Gap 13 5 - 15 mmol/L [facility] Calcium 9.4 8.5 - 10.5 mg/dL [facility] Estimated GFR 66 >=60 mL/min/1. 73 m?? [facility] Comment: The eGFR was calculated using the CKD-EPI equation. As with all creatinine based estimates of kidney function, eGFR values calculated with the CKD-EPI equation are not accurate in patients with acute kidney failure, extremes of body mass or the acutely ill. [email or web address]/[facility] CITYnkf eGFR 77 >=60 mL/min/1. 73 m?? [facility] Comment: The eGFR was calculated using the CKD-EPI equation. As with all creatinine based estimates of kidney function, eGFR values calculated with the CKD-EPI equation are not accurate in patients with acute kidney failure, extremes of body mass or the acutely ill. [email or web address] Blood specimen (specimen) 07/02/2019 4:13 AM EST 07/02/2019 4:30 AM EST Narrative Resulting Agency Comment Spec In Lab Andre Stockton MD CHEMISTRY ORDERABLES [facility] [place] [address] from Last 3 Months or Most Recently Relevant to Health Maintenance Advance Directives * Full Code (Latest Code Status on File) Date Activated Date Inactivated Comments 07/01/2019 7:46 PM 07/03/2019 3:44 PM Question Answer Comments Does patient have capacity to make decision: Yes Care Teams Terra Cotta Setter Relationship Specialty Start Date End Date Prince Murray DO [address] [place] [address] [address] [place] [address] [facility] - General 06/07/10
--- OUTSIDE RECORDS SUMMARY | 2024-02-01 00:23 | XMS_ITS | Encounter Summary ---
Author Organization [facility] Address [address] [place] [address] Care Team Providers Care Mail Distribution Scheme Examiner Name Role Phone Unknown, Provider Primary Care Provider Prince Murray DO Primary Care Provider [phone] Encounter Details Date Type Department Care Team (Late st Contact Info) Description 03/02/2020 Lab Requisition [facility] Pathology & Laboratory Medicine - [facility] [address] [place] [address] Outr Resulting Lab, Provider Social History Tobacco Use Types Packs/Day Years Used Date Smoking Tobacco: Never Assessed Sex and Gender Information Value Date Recorded Sex Assigned at Not on file Gender Identity Not on file Sexual Orientation Not on file documented as of this encounter Plan of Treatment Not on file documented as of this encounter Procedures Procedure Name Priority Date/Time Associated Diagnosis Comments DO NOT ORDER STANDALONE - BROAD COVID TEST Today 03/02/2020 9:06 EDT COVID-19 TESTING Routine 03/02/2020 9:06 EDT documented in this encounter Results * DO NOT ORDER STANDALONE - BROAD COVID TEST (03/02/2020 9:06 EDT) COVID-19 rt-PCR Result NEGATIVE Negative 03/03/2020 13:09 EDT [facility] Comment: 2019-novel Coronavirus (2019-nCoV) not detected by the qRT-PCR assay. Consider testing for other respiratory viruses or re-collecting for 2019-nCoV testing. Note: Optimum timing for peak viral levels during infections caused by 2019-nCoV have not been determined. Collection of multiple specimens from the same patient may be necessary to detect the virus. Limitations Positive results are indicative of active infection with SARS-CoV-2 but do not rule out bacterial infection or co-infection with other viruses. The agent detected may not be the definite cause of disease. In addition, detection of viral RNA may not indicate the presence of infectious virus or that SARS-CoV-2 is the causative agent for clinical symptoms. Negative results do not preclude SARS-CoV-2 infection and should not be used as the sole basis for patient management decisions. Negative results must be combined with clinical observations, patient history, and epidemiological information. False negative results may also occur if amplification inhibitors are present in the specimen or if inadequate numbers of organisms are present in the specimen. Optimum specimen types and timing for peak viral levels during infections caused by SARS-CoV-2 have not been fully determined. Collection of multiple specimens (types and time points) from the same patient may be necessary to detect the virus. The test was validated for use with upper respiratory specimens obtained via nasopharyngeal or oropharyngeal swabs in VTM, UTM, M4, M5, M6, saline, and MTM media. The performance of this test has not been established for other specimens. Specimens collected using other FDA recommended Specimen Collection Materials listed in the FDA COVID-19 [employer] communication (October 09, 2019) are processed with the caveat that they were not all validated for use with this test and the result must be interpreted in this context. Furthermore, a false negative results may occur if a specimen is improperly collected, transported or handled. If the virus mutates in the RT-PCR target region, SARS-CoV-2 may not be detected or may be detected less predictably. Inhibitors or other types of interference may produce a false negative result. An interference study evaluating the effect of common cold medications was not performed. This test is not FDA-cleared but its performance characteristics were established by our CLIA-certified, CAP-accredited, high complexity laboratory in accordance with CLIA regulations, [employer] [place] (CAP) guidelines (Oct 02, 2019), and FDA guidance (Sep 13, 2019). This test is only for use under the Food and Drug Administration's Emergency Use Authorization. Swab ENTIRE NASOPHARYNX / Unknown 03/02/2020 9:06 EDT 03/02/2020 15:52 EDT Provider Outr Resulting Lab MICROBIOLOGY - GENERAL ORDERABLES [facility] [place] * COVID-19 TESTING (03/02/2020 9:06 EDT) COVID-19 rt-PCR Result NEGATIVE Negative 03/03/2020 14:39 EDT [facility] Comment: 2019-novel Coronavirus (2019-nCoV) not detected by the qRT-PCR assay. Consider testing for other respiratory viruses or re-collecting for 2019-nCoV testing. Note: Optimum timing for peak viral levels during infections caused by 2019-nCoV have not been determined. Collection of multiple specimens from the same patient may be necessary to detect the virus. Limitations Positive results are indicative of active infection with SARS-CoV-2 but do not rule out bacterial infection or co-infection with other viruses. The agent detected may not be the definite cause of disease. In addition, detection of viral RNA may not indicate the presence of infectious virus or that SARS-CoV-2 is the causative agent for clinical symptoms. Negative results do not preclude SARS-CoV-2 infection and should not be used as the sole basis for patient management decisions. Negative results must be combined with clinical observations, patient history, and epidemiological information. False negative results may also occur if amplification inhibitors are present in the specimen or if inadequate numbers of organisms are present in the specimen. Optimum specimen types and timing for peak viral levels during infections caused by SARS-CoV-2 have not been fully determined. Collection of multiple specimens (types and time points) from the same patient may be necessary to detect the virus. The test was validated for use with upper respiratory specimens obtained via nasopharyngeal or oropharyngeal swabs in VTM, UTM, M4, M5, M6, saline, and MTM media. The performance of this test has not been established for other specimens. Specimens collected using other FDA recommended Specimen Collection Materials listed in the FDA COVID-19 [employer] communication (October 09, 2019) are processed with the caveat that they were not all validated for use with this test and the result must be interpreted in this context. Furthermore, a false negative results may occur if a specimen is improperly collected, transported or handled. If the virus mutates in the RT-PCR target region, SARS-CoV-2 may not be detected or may be detected less predictably. Inhibitors or other types of interference may produce a false negative result. An interference study evaluating the effect of common cold medications was not performed. This test is not FDA-cleared but its performance characteristics were established by our CLIA-certified, CAP-accredited, high complexity laboratory in accordance with CLIA regulations, [employer] [place] (CAP) guidelines (Oct 02, 2019), and FDA guidance (Sep 13, 2019). This test is only for use under the Food and Drug Administration's Emergency Use Authorization. Performing Lab [facility] 03/03/2020 14:39 EDT [facility] Swab 03/02/2020 9:06 EDT 03/02/2020 15:52 EDT Provider Outr Resulting Lab MICROBIOLOGY - GENERAL ORDERABLES [facility] [address] [place] [address] [facility] [place], [place] documented in this encounter Visit Diagnoses Not on filedocumented in this encounter Care Teams Mail Distribution Scheme Examiner Relationship Specialty Start Date End Date Unknown, Provider, PCP - General 02/23/10 03/04/20 Prince Murray DO [address] [place] [address] PCP - General 03/05/20 documented as of this encounter
--- OUTSIDE RECORDS SUMMARY | 2024-02-01 00:23 | XMS_ITS | Encounter Summary ---
Author Organization [facility] [place] [address] Care Team Providers Care Chief Ii Dispatcher Name Role Phone Prince Murray DO Primary Care Provider [phone] Encounter Details Date Type Department Care Team (Late st Contact Info) Description 12/08/2011 External [place] [id number] Provider, Scanning Social History Tobacco Use Types Packs/Day Years Used Date Smoking Tobacco: Never Assessed Sex and Gender Information Value Date Recorded Sex Assigned at Not on file Gender Identity Not on file Sexual Orientation Not on file documented as of this encounter Plan of Treatment Not on file documented as of this encounter Procedures Procedure Name Priority Date/Time Associated Diagnosis Comments SURGICAL PATHOLOGY SCAN Routine 12/08/2011 documented in this encounter Results * Scan Doc: Surgical Pathology (12/08/2011) Mal Carmichael MD MEDIA MGR SCAN EXT O RDR/RSLT documented in this encounter Visit Diagnoses Not on filedocumented in this encounter Care Teams Chief Ii Dispatcher Relationship Specialty Start Date End Date Prince Murray DO [address] [place] [address] PCP - General 06/07/10 documented as of this encounter
--- OUTSIDE RECORDS SUMMARY | 2024-02-01 00:23 | XMS_ITS | Encounter Summary ---
Author Organization [facility] Address [address] [place] [address] Care Team Providers Care Boatswain'S Mate Name Role Phone Unknown, Provider Primary Care Provider Encounter Details Date Type Department Care Team (Late st Contact Info) Description 11/13/2006 Results Only [facility] [address] [place] [address] Ghulam Foreman MD [address] [place] [id number] Social History Tobacco Use Types Packs/Day Years Used Date Smoking Tobacco: Never Assessed Sex and Gender Information Value Date Recorded Sex Assigned at Not on file Gender Identity Not on file Sexual Orientation Not on file documented as of this encounter Plan of Treatment Not on file documented as of this encounter Procedures Procedure Name Priority Date/Time Associated Diagnosis Comments SURGICAL PATHOLOGY Routine 11/13/2006 0:00 EDT documented in this encounter Results * SURGICAL PATHOLOGY (11/13/2006 0:00 EDT) Pathology Report: SURGICAL PATHOLOGY REPORT Reports generated via electronic interface contain original data; however they are lacking the format of the original report. Caution should be taken when reading/interpreti ng unformatted reports. Name: ? GUY TAVAREZ ? Accession #: ? [id number] ? : ? 1960 (Age: 46) ??M ? Collect Date: ? 11/13/2006 ? Location: ? [facility] ? Receive Date: ? 11/13/2006 ? Provider: GHULAM FOREMAN MD Copy to: GRETA STEPHENS MD ? Final Pathologic Diagnosis: A. ?Soft tissue mass, right neck, excision: 1. ?Lipoma. B. ?Skin, left face, biopsy: ? 1. ?? Skin with hyperkeratosis and parakeratosis. ??See comment. Comment: ? Deeper levels were examined on specimen (B). ??(Libra Sabillon)/rust Document reviewed and electronically signed by: SANDHYA ROBINS MD Report ??Date: 11/16/2006 15:48 By the signature above, the attending physician certifies that he/she has personally conducted a gross and/or microscopic examination of the described specimens and rendered or confirmed the above diagnosis. Specimen(s) Received: A. ?Right neck mass (#1) B. ? Left facial mass (#2) Clinical History: ? Right neck mass-suspect lipoma; left facial mass-suspect hyperplastic sebaceous gland Gross Description: ? Received in formalin labelled [place] and #1 right neck mass is a 2.0 x 1.2 x 1.0 cm portion of gonzalez-yellow, lobular soft tissue. ??The margin is inked black. ??Sectioning reveals a gonzalez-yellow, slightly firm, circular nodule. ??The specimen is entirely submitted as (A1) and (A2). Received in formalin labelled [place] and #2 Lt. facial mass is a minute portion of white soft tissue which is entirely submitted in one cassette as (B). (Dr. Grady)/mpl End of Report [facility] 11/13/2006 11/13/2006 15: 29 EDT Ghulam Foreman MD PATHOLOGY ORDERABLES Performing Organization Address City/State/[facility] Co de Phone Number [facility] [address] [place] [address] documented in this encounter Visit Diagnoses Not on filedocumented in this encounter Care Teams Boatswain'S Mate Relationship Specialty Start Date End Date Unknown, Provider, PCP - General 02/23/10 03/04/20 documented as of this encounter
--- OUTSIDE RECORDS SUMMARY | 2024-02-01 00:23 | XMS_ITS | Encounter Summary ---
Author Organization [facility] Address [address] [place] [address] Care Team Providers Care Orthotic/Prosthetic Practitioner Name Role Phone Trevor Prince Rivas DO Primary Care Provider [phone] Encounter Details Date Type Department Care Team (Late st Contact Info) Description 03/05/2020 Lab Requisition [facility] Pathology & Laboratory Medicine - [address] [address] Danette Tsai MD [address] [place] [phone] Encounter for other general examination Social History Tobacco Use Types Packs/Day Years Used Date Smoking Tobacco: Never Assessed Sex and Gender Information Value Date Recorded Sex Assigned at Not on file Gender Identity Not on file Sexual Orientation Not on file documented as of this encounter Plan of Treatment Not on file documented as of this encounter Procedures Procedure Name Priority Date/Time Associated Diagnosis Comments SURGICAL PATHOLOGY Today 03/05/2020 9: 51 EDT Encounter for other general examination documented in this encounter Results * SURGICAL PATHOLOGY (03/05/2020 9:51 EDT) Final Diagnosis A. DUODENUM, BIOPSY: - Duodenal mucosa with no significant diagnostic abnormality. B. STOMACH, NOT OTHERWISE SPECIFIED, BIOPSY: - Gastric body mucosa with no significant diagnostic abnormality. C. COLON, CECUM, POLYP, BIOPSY: - Tubular adenoma. D. COLON, RANDOM, BIOPSY: - Colonic mucosa with no significant diagnostic abnormality. 03/08/2020 16:43 [facility] Attestation There was significant resident/fellow involvement in the diagnostic evaluation of this case. By the signature below, the attending physician certifies that they have personally conducted a gross and/or microscopic examination of the described specimens and rendered or confirmed the above diagnosis. 03/08/2020 16:43 [facility] at 1643 Clinical History Chronic abdominal pain, loose stools 03/08/2020 16:43 [facility] Gross Description A. Received in formalin labelled with proper patient identification (initials G, K) and duodenal is a single gonzalez-pink tissue (0.4 x 0.4 x 0.2 cm). Submitted intact in A1. B. Received in formalin labelled with proper patient identification (initials G, K) and gastric is a single gonzalez-pink tissue (0.3 x 0.3 x 0.2 cm). Submitted intact in B1. C. Received in formalin labelled with proper patient identification (initials G, K) and cecal polyp is a single gonzalez tissue (0.3 x 0.2 x 0.2 cm). Submitted intact in C1. D. Received in formalin labelled with proper patient identification (initials G, K) and random biopsies are 6 gonzalez-yellow tissues (0.5 x 0.3 x 0.2 cm to 0.2 x 0.2 x 0.1 cm). Entirely submitted in D1 and D2. George Santana 03/05/2020 18:01 03/08/2020 16:43 [facility] Resident/Gallito w: Arvind Magana MD 03/08/2020 16:43 T [facility] Performing Lab [facility] 03/08/2020 16:43 [facility] Scanned Images 03/08/2020 16:43 [facility] Tissue ENTIRE COLON / Unknown 03/05/2020 9:51 EDT 03/05/2020 16:28 EDT Tissue specimen (specimen) SPECIMEN FROM STOMACH OBTAINED BY TOTAL GASTRECTOMY / Unknown 03/05/2020 9:51 EDT 03/05/2020 16:28 EDT Tissue specimen (specimen) CECUM STRUCTURE / Unknown 03/05/2020 9:51 EDT 03/05/2020 16:28 EDT Tissue specimen (specimen) COLON STRUCTURE / Unknown 03/05/2020 9:51 EDT 03/05/2020 16:28 EDT Danette Tsai MD PATHOLOGY ORDERABLES [facility] [address] [place] [address] documented in this encounter Visit Diagnoses Diagnosis Encounter for other general examination documented in this encounter Care Teams Orthotic/Prosthetic Practitioner Relationship Specialty Start Date End Date Prince Murray DO [address] [place] [address] PCP - General 03/05/20 documented as of this encounter
--- OUTSIDE RECORDS SUMMARY | 2024-02-01 00:23 | XMS_ITS | Encounter Summary ---
Author Organization [facility] [place] [address] Care Team Providers Care Wrapper Layer And Examiner Soft Work Name Role Phone Prince Murray DO Primary Care Provider Encounter Details Date Type Department Care Team (Late st Contact Info) Description 05/31/2016 Telephone [place] [address] Jayda Alvarado MD [facility] [place] [address] Social History Tobacco Use Types Packs/Day Years Used Date Smoking Tobacco: Never Sex and Gender Information Value Date Recorded Sex Assigned at Not on file Gender Identity Not on file Sexual Orientation Not on file documented as of this encounter Miscellaneous Notes * Telephone Encounter - Alejandra Hull RN - 06/02/2016 10:23 AM EST Call placed back to patient and relayed message below. Patient verb understanding and is agreeable with plan. * Telephone Encounter - Alejandra Hull RN - 06/01/2016 1:55 PM EST Call placed to patient to inform him that his insurance CMT panel is a covered benefit. Left message on voicemail to call back office. * Telephone Encounter - Alejandra Hull RN - 06/01/2016 10:09 AM EST Per Tabitha Roca: Enrrique doesn't require a PA for genetic testing. * Telephone Encounter - Alejandra Hull RN - 05/31/2016 1:31 PM EST Department of Neurology Prior Authorization Request for Genetic Testing Patient Name: Guy Tavarez Patient : [id number] Patient Provider: Dr. Alvarado NPI # [id number] Genetic test being ordered: CMT panel CPT Codes: 72024 ICD 10: G60.0 Requested Lab: [facility] Reason for Genetic Testing(Clinical indication): Please refer to last clinical note. [email or web address] documented in this encounter Plan of Treatment Not on file documented as of this encounter Visit Diagnoses Not on filedocumented in this encounter Care Teams Wrapper Layer And Examiner Soft Work Relationship Specialty Start Date End Date Prince Murray DO [address] [place] [address] PCP - General 06/07/10 documented as of this encounter
--- OUTSIDE RECORDS SUMMARY | 2024-02-01 00:23 | XMS_ITS | Encounter Summary ---
Author Organization [facility] Address [address] [place] [address] Care Team Providers Care Telecom Field Technician Name Role Phone Prince Murray DO Primary Care Provider [phone] Encounter Details Date Type Department Care Team (Late st Contact Info) Description 12/19/[address] [facility] Pathology & Laboratory Medicine - [facility] [address] [place] [address] Outr Resulting Lab, Provider Social History Tobacco Use Types Packs/Day Years Used Date Smoking Tobacco: Never Assessed Interpersonal Safety Answer Date Record ed Physically Hurt Never 03/10/2020 Verbally Threaten Not on file 03/10/2020 Sex and Gender Information Value Date Recorded Sex Assigned at Not on file Gender Identity Not on file Sexual Orientation Not on file documented as of this encounter Plan of Treatment Not on file documented as of this encounter Procedures Procedure Name Priority Date/Time Associated Diagnosis Comments HOLD SST Today 12/19/2021 8:28 EDT HEPATITIS C AB W REFLEX TO HCV RNA BY PCR Today 12/19/2021 8:28 EDT PSA TOTAL, DIAGNOSTIC Today 12/19/2021 8:28 EDT documented in this encounter Results * HOLD SST (12/19/2021 8:28 EDT) Hold Hold 12/19/2021 18:15 EDT [facility] Blood VENOUS BLOOD / Unknown 12/19/2021 8:28 EDT 12/19/2021 17:10 EDT Provider Outr Resulting Lab LAB INFO SER VICE AND SUPPORT & PHONE RESULT Performing Organization Address [facility] Co de Phone Number [facility] [address] [place] [address] * PSA TOTAL, DIAGNOSTIC (12/19/2021 8:28 EDT) PSA 2.0 <=4.5 ng/mL 12/19/2021 18:10 EDT [facility] Blood VENOUS BLOOD / Unknown 12/19/2021 8:28 EDT 12/19/2021 17:09 EDT Narrative [facility] - 12/19/2021 18:10 EDT NOTE: Serum PSA concentration should not be interpreted as absolute evidence for the presence or absence of malignant disease. Assayed on [employer] XPT using chemiluminescent technology.??Values obtained by using different assay methods cannot be used interchangeably. Provider Outr Resulting Lab CHEMISTRY & BLOOD GAS ORDERABLES Performing Organization Address [facility] Co de Phone Number [facility] [address] [place] [address] * HEPATITIS C AB W REFLEX TO HCV RNA BY PCR (12/19/2021 8:28 EDT) Hep C Antibody Negative Negative 12/20/2021 8:07 EDT [facility] Blood VENOUS BLOOD / Unknown 12/19/2021 8:28 EDT 12/19/2021 17:09 EDT Provider Outr Resulting Lab CHEMISTRY & BLOOD GAS ORDERABLES Performing Organization Address [facility]/ZIP Co de Phone Number [facility] [address] [place] [address] documented in this encounter Visit Diagnoses Not on filedocumented in this encounter Care Teams Telecom Field Technician Relationship Specialty Start Date End Date Prince Murray DO [address] [place] [address] [place] [address] PCP - General 03/05/20 documented as of this encounter
--- OUTSIDE RECORDS SUMMARY | 2024-02-01 00:23 | XMS_ITS | Encounter Summary ---
Author Organization [facility] Address [address] [place] [address] Care Team Providers Care Paint Striping Machine Operator Name Role Phone Prince Murray DO Primary Care Provider [phone]- [phone] Encounter Details Date Type Department Care Team (Late st Contact Info) Description 12/19/2021 Lab Requisition [facility] Pathology & Laboratory Medicine - [facility] [address] [place] [address] Outr Resulting Lab, Provider Social History Tobacco [...] Procedure Name Priority Date/Time Associated Diagnosis Comments HIV 1/2 ANTIGEN AND ANTIBODY, 4TH GENERATION Routine 12/19/2021 8:28 EDT documented in this encounter Results * HIV 1/2 ANTIGEN AND ANTIBODY, 4TH GENERATION (12/19/2021 8:28 EDT) HIV 1 and 2 Antibody/p24 Antigen, 4th Generation Negative Negative 12/20/2021 8:31 EDT [facility] Comment:If acute HIV-1 infec tion is suspected in a high risk patient, submit plasma specimen for HIV-1 RNA quantitation test. Blood VENOUS BLOOD / Unknown 12/19/2021 8:28 EDT 12/19/2021 17:09 EDT Narrative [facility] - 12/20/2021 8:31 EDT Fourth Generation assay performed on the Siemens [employer] XPT. Provider Outr Resulting Lab IMMUNOLOGY A ND SEROLOGY ORDERABLES [facility] [address] [place] [address] documented in this encounter Visit Diagnoses Not on filedocumented in this encounter Care Teams Paint Striping Machine Operator Relationship Specialty Start Date End Date Prince Murray DO [address] [place], [place] [address] [place] [address] PCP - General 03/05/20 documented as of this encounter
--- OUTSIDE RECORDS SUMMARY | 2024-02-01 00:23 | XMS_ITS | Encounter Summary ---
Author Organization [facility] [place] [address] Care Team Providers Care Hiv Prevention Specialist Name Role Phone Prince Murray DO Primary Care Provider Encounter Details Date Type Department Care Team (Late st Contact Info) Description 06/12/2016 Orders [place] [address] Jayda Alvarado MD [facility] [place] [address] Sensory neuronopathy Social History Tobacco Use Types Packs/Day Years Used Date Smoking Tobacco: Never Sex and Gender Information Value Date Recorded Sex Assigned at Not on file Gender Identity Not on file Sexual Orientation Not on file documented as of this encounter Plan of Treatment Not on file documented as of this encounter Results * Miscellaneous Lab request (06/12/2016 10:08 AM EST) Pathologist [facility] Result Request received in lab. [facility] Blood specimen (specimen) 06/12/2016 10:08 AM EST 06/12/2016 10:12 AM EST Narrative Resulting Agency Comment Spec In Lab Jayda Alvarado MD HEMATOLOGY ORDERABL ES [facility] [place] [address] * Tissue transglutaminase, IgA (06/12/2016 10:08 AM EST) TTG IgA Ab 0.4 0.1 - 10.0 u/ml [facility] Comment: Negative = <7 U/mL Equivocal = 7-10 U/mL Positive = >10 U/mL Blood specimen (specimen) 06/12/2016 10:08 AM EST 06/12/2016 1:30 PM EST Narrative Resulting Agency Comment Spec In Lab Jayda Alvarado MD IMMUNOLOGY ORDERABL ES [facility] [place] [address] documented in this encounter Visit Diagnoses Diagnosis 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
--- OUTSIDE RECORDS SUMMARY | 2024-02-01 00:23 | XMS_ITS | Encounter Summary ---
Author Organization [facility] [place] [address] Care Team Providers Care Grinder Carbon Plant Name Role Phone Prince Murray DO Primary Care Provider [phone] Encounter Details Date Type Department Care Team (Late st Contact Info) Description 06/01/2016 Orders [place] [address] Jayda Alvarado MD [facility] [place] [address] Social History Tobacco Use Types Packs/Day Years Used Date Smoking Tobacco: Never Sex and Gender Information Value Date Recorded Sex Assigned at Not on file Gender Identity Not on file Sexual Orientation Not on file documented as of this encounter Plan of Treatment Not on file documented as of this encounter Visit Diagnoses Not on filedocumented in this encounter Care Teams Grinder Carbon Plant Relationship Specialty Start Date End Date Prince Murray DO [address] [place], [place] [id number] PCP - General 06/07/10 documented as of this encounter
--- OUTSIDE RECORDS SUMMARY | 2024-02-01 00:23 | XMS_ITS | Encounter Summary ---
Author Organization [facility] Address [facility] [place] [address] Care Team Providers Care Pattern Gater Name Role Phone Prince Murray DO Primary Care Provider Encounter Details Date Type Department Care Team (Late st Contact Info) Description 07/01/2019 Telephone Cardiology at [address] [place] [address] Emily Jolly MD [facility] [place] [address] Social History Tobacco Use Types Packs/Day Years [...] encounter Miscellaneous Notes * Telephone Encounter - Emily Jolly MD - 07/01/2019 11:29 AM EST I spoke with Dr. Murray who relayed the following: Patient does not have known CAD (although we do not have records here) but as per Dr. Murray stated that he was having chest pain, PINO. On a monitor car operator, he was found to have long runs of VT(note that K+ and Mg2+ normal, hemodynamically stable) This was noticed on 06/[address] Murray states that he approached the hospital's cardiology team but was told that patient was stable. He is very concerned. I do not have access to the testing (he will be faxing this) but given Dr. Murray's concerns, I felt he should have the patient come to our ED and we could have cardiology consultation. This degree of presumed VT would merit further evaluation. documented in this encounter Plan of Treatment Not on file documented as of this encounter Visit Diagnoses Not on filedocumented in this encounter Care Teams Pattern Gater Relationship Specialty Start Date End Date Prince Murray DO [address] [place] [address] PCP - General 06/07/10 documented as of this encounter
--- OUTSIDE RECORDS SUMMARY | 2024-02-01 00:23 | XMS_ITS | Encounter Summary ---
[place] [address] Care Team Providers Care Machine Driller Name Role Phone Prince Murray DO Primary Care Provider [phone] Encounter Details Date Type Department Care Team (Late st Contact Info) Description 06/20/2016 [place] [address] Shaq Edwards Social History Tobacco Use Types Packs/Day Years Used Date Smoking Tobacco: Never Sex and Gender Information Value Date Recorded Sex Assigned at Not on file Gender Identity Not on file Sexual Orientation Not on file documented as of this encounter Plan of Treatment Not on file documented as of this encounter Visit Diagnoses Not on filedocumented in this encounter Care Teams Machine Driller Relationship Specialty Start Date End Date Prince Murray DO [address] [place], [place] [id number] PCP - General 06/07/10 documented as of this encounter
--- OUTSIDE RECORDS SUMMARY | 2024-02-01 00:23 | XMS_ITS | Encounter Summary ---
Author Organization [facility] [place] [address] Care Team Providers Care Corporate Coordinator Name Role Phone Prince Murray DO Primary Care Provider Encounter Details Date Type Department Care Team (Late st Contact Info) Description 10/18/2016 2:00 PM EDT Office [place] [address] Jayda Vasquez MD [facility] [place] [address] Neuropathy Social History Tobacco Use Types Packs/Day Years Used Date Smoking Tobacco: Never Alcohol Use Standard Drinks/Week Comments No 0 (1 standard drink = 0.6 oz pur e alcohol) Sex and Gender Information Value Date Recorded Sex Assigned at Not on file Gender Identity Not on file Sexual Orientation Not on file documented as of this encounter Last Filed Vital Signs Vital Sign Reading Time Taken Comments Blood Pressure 156/80 10/18/2016 1:43 PM EDT Pulse 77 10/18/2016 1:43 PM EDT Temperature - - Respiratory Rate - - Oxygen Saturation - - Inhaled Oxygen Concentration - - Weight 133 kg (293 lb 3.2 oz) 10/18/2016 1:43 PM EDT Height 190.5 cm (6' 3) 10/18/2016 1:43 PM EDT r eported Body Mass Index 36.65 10/18/2016 1:43 PM EDT documented in this encounter Progress Notes * Jayda Vasquez MD - 10/18/2016 2:00 PM EDT Images from the original note were not included. 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 HPI: He has had difficulties for several, beginning with fairly abruptly in At which point he noticed numbness that began unilaterally, spreading in a distal to proximal direction over the course of weeksto months to involve more proximal aspects of the leg then spreading to the contralateral limb. He does not describe this as a par although he does note that progression has had periods o. Symptoms are predominantly of pain and CSF study, serologic evaluation and sural nerve biopsy. The first electrodiagnostic study was in September 2008 at which point he did demonstrate slowing of conduction velocities with preserved motor amplitudes, consistent with a mixed axonal demyelinating picture. A subsequent study done in February of the same year (5 months later), demonstrated conduction block and abnormal temporal dispersion in 1 nerve with inadequate motor nerve studies. A hhf-exarsg-awpdknuha sensory component was also suggested by absent sural SNAP and low amplitude (8 ??V) radial SNAP. Testing was subsequently repeated in 2009. This revealed more amplitude loss making it difficult to assess for demyelination. He underwent CSF evaluation that revealed a mildly elevated protein without other abnormalities. Other serologic testing that was performed and negative included SPEP, syphilis serologies, LAITH, MAG and SGPG antibodies, ESR, TSH. More recently a tissue transglutaminase, B12 with MMA, and paraneoplastic panel was performed. These were negative with the exception P/Q calcium channel antibodies and voltage-gated potassium antibodies. As a result, CT scan of the chest abdomen and pelvis was performed and results are as noted below: CT chest/abdomen/pelvis: IMPRESSION 1. No mass identified within the chest, abdomen, or pelvis. 2. 3 mm noncalcified left lower lobe nodule is of doubtful significance. 3. Diffuse mild hepatic steatosis. 4. Cholelithiasis without acute cholecystitis. 5. Bilateral multifocal renal cortical scarring. Since last visit: No significant change. History from last visit is as follows: In April of 2009, he first began to notice numbness in the toes of his left foot. This moved up the foot over time. There were associated spasm in the toes and mild discomfort. Approximately 1 yearlater he began to notice it in the other foot. Over time it has progressed up the foot and legs to the mid-reyna. Currently it is very uncomfortable. When he gets off his feet he gets spasms. By spasm, he is referring to electrical shocks, lancinations that come up the foot. This is associated with significant pain on the bottom of the foot, like stepping on a nail. Even light touch gives him significant pain. The transition from tingling to more consistent and refractory pain occurred ~4 years ago. Balance: he can't walk in the dark due to balance; he has trouble in the shower - he has to lean against the wall. Upper extremities: mild numbness in the fingers of the right hand but no pain. He has some loss of dexterity in his fingers and hands - he notes that feeling is reduced with doing things like pickingup paper. Gait: normal; he has some discomfort in his knees responsive to chondroitin. He is using inserts inhis shoes. He notes some discomfort in his ankles and this alters his gait. His gait stamina is reduced. AM: he feels unsteady and stiff with his ankles; balance is very poor. He had a course of immunoglobulin. This was complicated by what sounds like an aseptic meningitis. There was no effect on his feet. A course of high dose prednisone - this helped him at first (improved sensation) but was not sustained. Biopsy was performed before the prednisone course. He has had trials of GBP and PGB and this left him with very significant cognitive effects enough to require him to discontinue. He does reasonable well during the day; however he has more problems at night. He manages symptoms with a combination of amitriptyline, hydromorphone, sinemet 25/100, baclofen. Blood work was done through Dr. Murray. Little was done at . Interval History: Smoking: no change EtOH: no change History reviewed. No pertinent change in past medical history. Medications: Medications 10/18/16 1350 Medication Sig Taking? multivitamin (THERAGRAN) Tablet Take 1 tablet by mouth daily. Yes glucosamine sulfate 500 mg Tablet Take 1,000 mg by mouth 2 times daily. Yes MAGNESIUM CHLORIDE (MAG 64 ORAL) Take by mouth 2 times daily. Yes carbidopa-levodopa (SINEMET) 25-100 mg Tablet Take by mouth nightly. Yes amitriptyline (ELAVIL) 25 mg Tablet Take 25 mg by mouth daily. Yes baclofen (LIORESAL) 10 mg Tablet Take 10 mg by mouth daily. Yes HYDROcodone-acetaminophen (NORCO) 7.5-325 mg Tablet Four times a day Yes HYDROmorphone (DILAUDID) 2 mg Tablet Take 2 mg by mouth nightly. Yes indomethacin (INDOCIN) 50 mg Capsule Take 50 mg by mouth as needed. Yes furosemide (LASIX) 20 mg Tablet Take 20 mg by mouth daily. Yes lidocaine (LIDODERM) 5 % Adhesive Patch, Medicated Daily Yes omeprazole (PRILOSEC) 20 mg Capsule, Delayed Release(E.C.) Take 20 mg by mouth daily. Yes potassium chloride (K-DUR/KLOR-CON) 20 mEq Tab Sust.Rel. Particle/Crystal Take 20 mEq by mouth daily. Yes clobetasol (TEMOVATE) 0.05 % ointment Apply topically 2 times daily. For only 2 weeks. Yes potassium chloride (MICRO-K) 10 mEq Capsule, Sustained Release Take 10 mEq by mouth daily. Reportedon 10/18/2016 Triamcinolone Acetonide-L.S.B. 0.1 % Oint Apply topically 2 times daily. Start after the 2 weeks ofClobetasol. Patient not taking: Reported on 10/18/2016 ALLOPURINOL ORAL ranitidine (ZANTAC) 150 mg tablet Allergy: No Known Allergies Physical Exam: BP 156/80 (BP Location (NBP): Left arm, Patient Position: Sitting, BP Cuff Sizes: Large Adult (32-43 cm)) Pulse 77 Ht (!) 190.5 cm (6' 3) Comment: reported Wt (!) 133 kg (293 lb 3.2 oz) BMI 36.65 kg/m2 Appearance: The patient is a healthy-appearing male who appears of stated age and comes to his visit accompanied by his . he appears well dressed and groomed. HEENT: oral mucosa moist, no thrush. Extremities: Feet demonstrate notable edema bilaterally; no foot or ankle deformities; hands have skin changes (see below), color and temperature in lower extremities symmetric and normal Mental status: The patient is alert and calm with MS intact to detailed questioning regarding his history. his speech and language is intact to normal conversation and examination commands; speech fluent. his attention and concentration allow for a full evaluation without evidence for deficit. Short- term and long-term memory are normal. Cranial nerves: PERRL, no nystagmus, EOMI without reported diplopia. Facial movements are normal with full eyelid closure and perioral strength. There is no eyelid myotonia or Red's twitch. Hearingis normal to Conversation. Palatal elevation is normal. Head movements are normal. Tongue protrudesin the midline and shows no atrophy or fasciculations. Facial sensation intact. No evidence of dysphonia or hoarseness of voice. Motor: NE NF SA EE EF WE WF FA FF Jason Right nt nt 5 5 5 5 5 5 5 5 Left nt nt 5 5 5 5 5 5 5 5 HF HE KE KF HAB HADD ADF APF I E Right 5 nt 5 5 nt nt 5 5 5 5 Left 5 nt 5 5 nt nt 5 5 5 5 There is no atrophy or fasciculations. There is no myoclonus, tremor, change in tone, or drift. Sensory: Vibration: Ltoe 0 Rtoe 0 LMM 5 RMM 3.5 Lknee 8 Rknee 8 LDIP2 8 RDIP2 8 LDIP5 8 RDIP5 8 Pin: intact in the upper extremities but demonstrated a length dependent pattern of loss in the LEs; reduced to ~mid-reyna. Proprioception: markedly reduced distally and proximally but much more perturbed distally. Coordination: Intact with no evidence of dysmetria or dysarthria but o he does have fairly significant finding physiologic tremor. Alyawo-nu-vzbt test of upper extremities was preserved. Gait and station: Able to rise from a seated position without the use of his hands. Normal stance but gait is slightly tenuous and mildly unsteady; he has trouble walking on although he was able to rise on toes and heels transiently. Romberg positive. Tendon reflexes: biceps triceps BR patellar AJ Plantars Right tr 0 0 1+ 0 mute Left tr 0 0 1 0 mute Assessment / Plan: Guy Tavarez is a 56 y.o. male who was seen today for follow up of question of inflammatory neuropathy. In reviewing some of his studies, I am concerned about the clarity of his diagnosis. Certainly there is indisputable evidence of conduction block in reports of temporal dispersion on his electrodiagnostic study. However, a sufficient number of motor nerves to demonstrate the required 2 nerves showing conduction block or abnormal temporal dispersion was not performed. He had a very bad reaction to IVIG and because of this was not able to complete a definitive course. It was not clear that oral steroids impacted his symptoms but its not clear that there was objective evidence for lack of improvement at the end of the dose (electrodiagnostic or clinical assessment through neurology). Similarly, there is some question about the presence of demyelination/remyelination on sural nerve biopsy. I think other than an inflammatory etiology which is suggested by the relatively abrupt and possibly stepwise progression of his neuropathy, as well as diffusely reduced reflexes, consideration should also be given to a vasculitic etiology. Again, this is not well supported by his biopsy or serologic findings. He does have some inflammatory markers as evidenced by voltage gated potassium and PQ ty pe calcium channel antibodies but the relevance of these markers is uncertain in this setting. We talked about the possibility of a hereditary etiology; this would include amyloid, sodium channelopathies (SCN) and Fabry disease. There is little to suggest this either clinically or pathologically. We will proceed with [employer] testing today for the possibility that this represents a hereditaryneuropathy with superimposed inflammatory components. If this is covered, additional sequencing of the SCN 9A, alpha galactosidase, and T TR genes could be considered. This leaves us with the question of how to proceed. because I feel that the possibility of an inflammatory etiology has not been clearly ruled out I would suggest proceeding with a very specific but limited immunosuppressive course, with a post courseclinical and electrophysiologic evaluation. To minimize side effects I would suggest a pulsed regimen of steroids as noted below. This should be continued for 3 months him up followed by neurologic exam and electrophysiologic exam here. If he fails to demonstrate progression, and he is tolerating the medication, an additional 3 months for total 6 month course should be completed again with neurologic and electrophysiologic follow-up. If he fails to demonstrate improvement within this period of time, I think this is reasonable evidence for non-responsiveness to immunomodulatory agents and management should be directed towards pain control and adequate PT. Regimen: 1000 mg/d of methylprednisolone on each of 3 to 5 consecutive days, followed by 1000 mg IV on 1 dayeach week for the next month. After month 1, increase interval to [id number] X 1 month. Then [id number] X4 months ((Fatumapate et al, 2005; Arch Neurol). At that point, I???d like to repeat his electrodiagnostic study to see if there is any improvement. If there is no improvement at that point, it will be a decision whether to give him another 3 months to give him the best chance of response. That will depend on how he???s doing re: side effects. An alternate, oral, option if there is difficulty with IV access: Dexamethasone 40mg qd X 4d; repeat this regimen [id number] X 6 months (Makeda et al, 2010; the Predict trial). Prophylaxis per Dr. Murray: Consider, 1500mg/d Ca and 400-800Iu vitamin D, +/- a histamine jose alejandro. Infusion nurses to monitor BP/glucose I have spoken with his PCP, Dr. Murray, who is willing to facilitate treatment closer to his home. Follow-up: 3 months. JAYDA VASQUEZ MD [facility] Soup Mixer, Neuromuscular Medicine [facility] 10/19/16 10:26 AM I spent 40 minutes of face-face time with the patient, with 30 minutes of this time spent in counseling and coordination of care. documented in this encounter Plan of Treatment Not on file documented as of this encounter Procedures Procedure Name Priority Date/Time Associated Diagnosis Comments MISCELLANEOUS LAB REQUEST Routine 10/18/2016 3:32 PM EDT [facility] Routine 10/18/2016 3:32 PM EDT documented in this encounter Results * [facility] Sendout (10/18/2016 3:32 PM EDT) [facility] Sendout See Note [facility] Comment: The ordered test is: CMT Panel Radio NEXT Gene, [address] [place] [address] [place] [address] See Scanned Report. Specimen of unknown material (specimen) Other / Unknown 10/18/2016 3:32 PM EDT 10/18/2016 3:46 PM EDT Jayda Vasquez MD CHEMISTRY ORDERABLE S Performing Organization Address [facility] Co de Phone Number [facility] [place] [address] * Miscellaneous Lab request (10/18/2016 3:32 PM EDT) Pathologist [facility] Lab Result Request received in lab. [facility] Blood specimen (specimen) 10/18/2016 3:32 PM EDT 10/18/2016 3:38 PM EDT Narrative Resulting Agency Comment Spec In Lab Jayda Vasquez MD HEMATOLOGY ORDERABL ES Performing Organization Address [facility] Co de Phone Number [facility] [place] [address] documented in this encounter Visit Diagnoses Diagnosis Neuropathy Mononeuritis of unspecified site documented in this encounter Care Teams Corporate Coordinator Relationship Specialty Start Date End Date Prince Murray DO [address] [place] [address] PCP - General 06/07/10 documented as of this encounter
--- OUTSIDE RECORDS SUMMARY | 2024-02-01 00:23 | XMS_ITS | Encounter Summary ---
Author Organization [facility] [place] [address] Care Team Providers Care Architecture Instructor Name Role Phone Prince Murray DO Primary Care Provider [phone] Encounter Details Date Type Department Care Team (Late st Contact Info) Description 07/18/2016 Orders [place] [address] Jayda Alvarado MD [facility] [place] [address] Polyneuropathy (Primary Dx) Social History Tobacco Use Types Packs/Day Years Used Date Smoking Tobacco: Never Sex and Gender Information Value Date Recorded Sex Assigned at Not on file Gender Identity Not on file Sexual Orientation Not on file documented as of this encounter Plan of Treatment Not on file documented as of this encounter Results * (ABNORMAL) Creatinine (07/19/2016 9:00 AM EST) Creatinine 1.29 0.80 - 1.50 mg/dL [facility] Comment: Please note that the pediatric reference intervals supplied above were not validated at [facility]. Results from pediatric patients should be interpreted in conjunction to the patient's age, height and muscle mass. Estimated GFR 58(L) >=60 [facility] Comment: This estimated GFR (eGFR) value was calculated using the MDRD equation which has been validated on patients between the ages of 18 and 70. The MDRD should not be used to assess kidney function in patients < 18 years of age or in patients with extremes of body mass, or in patients with acute kidney failure. This value should be multiplied by 1.2 for patients. For further information please copy and paste the following links into your internet browser. [email or web address]://[email or web address] [email or web address]://[email or web address] Blood specimen (specimen) 07/19/2016 9:00 AM EST 07/19/2016 9:04 AM EST Narrative Resulting Agency Comment Spec In Lab Jayda Alvarado MD CHEMISTRY ORDERABLE S [facility] [place] [address] documented in this encounter Visit Diagnoses Diagnosis Polyneuropathy- Primary Unspecified hereditary and idiopathic peripheral neuropathy documented in this encounter Care Teams Architecture Instructor Relationship Specialty Start Date End Date Prince Murray DO [address] [place] [address] PCP - General 06/07/10 documented as of this encounter
--- OUTSIDE RECORDS SUMMARY | 2024-02-01 00:23 | XMS_ITS | Encounter Summary ---
Author Organization [facility] Address [address] [place] [address] Care Team Providers Care Optometrist Name Role Phone Unknown, Provider Primary Care Provider Prince Murray DO Primary Care Provider [phone] Encounter Details Date Type Department Care Team (Late st Contact Info) Description 08/04/2019 Lab Requisition [facility] Pathology & Laboratory Medicine - [facility] [address] [place] [address] Unknown, Provider, Social History Tobacco Use Types Packs/Day Years Used Date Smoking Tobacco: Never Assessed Sex and Gender Information Value Date Recorded Sex Assigned at Not on file Gender Identity Not on file Sexual Orientation Not on file documented as of this encounter Plan of Treatment Not on file documented as of this encounter Procedures Procedure Name Priority Date/Time Associated Diagnosis Comments PSA TOTAL, DIAGNOSTIC Routine 08/04/2019 7:33 EST documented in this encounter Results * PSA TOTAL, DIAGNOSTIC (08/04/2019 7:33 EST) PSA 1.7 0.0 - 3.5 ng/mL 08/05/2019 10:56 EST [facility] Blood VENOUS BLOOD / Unknown 08/04/2019 7:33 EST 08/04/2019 15:40 EST Narrative [facility] - 08/05/2019 10:56 EST NOTE: Serum PSA concentration should not be interpreted as absolute evidence for the presence or absence of malignant disease. Assayed on Siemens ADVIA Centaur XPT using chemiluminescent technology.??Values obtained by using different assay methods cannot be used interchangeably. Provider Unknown CHEMISTRY & BLOOD GA S ORDERABLES [facility] [address] [place] [address] documented in this encounter Visit Diagnoses Not on filedocumented in this encounter Care Teams Optometrist Relationship Specialty Start Date End Date Unknown, Provider, PCP - General 02/23/10 03/04/20 Prince Murray DO [address] [place] [id number] PCP - General 03/05/20 documented as of this encounter
--- OUTSIDE RECORDS SUMMARY | 2024-02-01 00:23 | XMS_ITS | Encounter Summary ---
Author Organization [facility] Address [facility] [place] [address] Care Team Providers Care Ceiling Installer Name Role Phone TrevorPrince frank Primary Care Provider Reason for Visit * Reason Comments Rash Encounter Details Date Type Department Care Team (Late st Contact Info) Description 01/18/2012 8:30 AM EDT Office [place] [address] Grace Trinidad MD [facility] DR MIC[place] [address] Eczema (Primary Dx) Discharge Disposition: Home Social History Tobacco Use Types Packs/Day Years Used Date Smoking Tobacco: Never Assessed Sex and Gender Information Value Date Recorded Sex Assigned at Not on file Gender Identity Not on file Sexual Orientation Not on file documented as of this encounter Progress Notes * Jae Medel MD - 01/18/2012 10:06 AM EDT I directly supervised Resident Dr. Trinidad during this office visit. Dr. Trinidad presented the history and physical exam to me. I then saw and examined this patient with Dr. Trinidad. We reviewed the history and pertinent details and I confirmed the physical findings. I agree with the details of the history and physical exam as documented in Dr. Grace Pettit's note. * Sreedhar, Grace Doherty MD - 01/18/2012 8:46 AM EDT DERMATOLOGY - NEW PATIENT NOTE Date of service: 01/18/2012 Guy Tavarez : 1960 Dermatology Resident Note: Grace Trinidad MD Chief Problem: hand dermatitis Chief Complaint Patient presents with ??? Rash Mr. Guy Tavarez is a 51 y.o. male. This is a new patient to me. Seen in consultation at the request of Prince Murray specifically for the evaluation and management of the above problem. HPI: Mr. Tavarez presents for dry, flaky skin on his knuckles, and elbows for 6 months. Patient admitsto frequent hand washing in the past, although he has recently tried to cut down on his hand washing. No personal history of eczema or psoriasis. He works in sales. He has been using a prescription cortisone that was prescribed by his pcp, but is unsure of the name. This has not helped. Past Skin History: none Medical History: There is no problem list on file for this patient. Medications: Current outpatient prescriptions ordered prior to encounter Medication Sig Dispense Refill ??? DISCONTD: predniSONE (DELTASONE) 20 mg tablet Taper/Titrate, POTaper/Titrate, PO. Take 3 (THREE)Tablet(s) (60 MG = 3 Tablet(s)) Once daily for 2 Weeks.Take 2 (TWO)Tablet(s) (40 MG = 2 Tablet(s)) Once daily for 2 Weeks.Take 1 1/2 (ONE AND ONE HALF)Tablet(s) (30 MG = 1 1/2 Tablet(s)) Once daily for 2 Weeks.Take 1 (ONE)Tablet(s) (20 MG = 1 Tablet(s)) Once daily for 2 Weeks.Take 1/2 (ONE HALF)Tablet(s) (10 MG = 1/2 Tablet(s)) Once daily for 2 Weeks. ??? ALLOPURINOL ORAL ??? 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 An abbreviated skin exam was performed. This includes: hands, elbows. Specific skin findings: 1. Scattered erythematous eczematous papules and plaques. With focal fissuring noted on the the index finger on the left hand and on the knuckles of the right hand. Diagnosis/Assessment/Treatment Plan: 1. Eczematous hand dermatitis. Prescriptions: Clobetasol 0.5% ointment 30g ,Triamcinolone 0.1% 30 g with 1 refill Recommendations: Use clobetsol BID for 2 weeks and then use TAC BID X 2 weeks. Patient encouraged to frequentlymoisturize with Cerave or Aquaphor and cerave -- up to 6 x a day. Also advised to wear cotton gloves with medication at night. Gentle soap -- dove. Follow-up: RTC in 1 month. Instructed to call for questions or concerns. Grace Trinidad MD Resident in Dermatology [facility] staff skiing teacher: Som Medel MD Section of Dermatology [facility] documented in this encounter Plan of Treatment Not on file documented as of this encounter Visit Diagnoses Diagnosis Eczema- Primary Contact dermatitis and other eczema, due to unspecified cause documented in this encounter Care Teams Ceiling Installer Relationship Specialty Start Date End Date Prince Murray DO [address] [place] [address] PCP - General 06/07/10 documented as of this encounter
--- OUTSIDE RECORDS SUMMARY | 2024-02-01 00:23 | XMS_ITS | Encounter Summary ---
Author Organization [facility] Address [address] [place] [address] Care Team Providers Care Analytical Scientist Name Role Phone Unavailable Primary Care Provider Unavailabl e Encounter Details Date Type Department Care Team (Late st Contact Info) Description 02/21/2010 Results Only [facility] ([facility]) [address] [place], [place] [id number] Tariq Anderson MD [address] [place] [id number] Social History Tobacco Use Types Packs/Day Years Used Date Smoking Tobacco: Never Assessed Sex and Gender Information Value Date Recorded Sex Assigned at Not on file Gender Identity Not on file Sexual Orientation Not on file documented as of this encounter Plan of Treatment Not on file documented as of this encounter Procedures Procedure Name Priority Date/Time Associated Diagnosis Comments SURGICAL PATHOLOGY Routine 02/21/2010 0:00 EDT documented in this encounter Results * SURGICAL PATHOLOGY (02/21/2010 0:00 EDT) Pathology Report: SURGICAL PATHOLOGY REPORT ? Reports generated via electronic interface contain original data; ? however they are lacking the format of the original report. ? Caution should be taken when reading/interpreti ng unformatted reports. ? Name: ? GUY TAVAREZ ? Accession #: ? [id number] ? : ? 1960 (Age: 49) ??M ? Collect Date: ? 02/21/2010 ? Location: ? [facility] ? Receive Date: ? 02/22/2010 ? Provider: TARIQ ANDERSON MD ? Copy to: LORETO F LIZY DO ? Final Pathologic Diagnosis: ? Esophagus, 40 cm, biopsy: ? 1. ?Squamocolumnar junctional mucosa with reactive features. ? 2. ? No specialized intestinal metaplasia/no dysplasia identified. ? Document reviewed and electronically signed by: ? CATIA BETTS MD ? Report ??Date: 02/24/2010 16:43 ? By the signature above, the attending physician certifies that he/she has ? personally conducted a gross and/or microscopic examination of the described ? specimens and rendered or confirmed the above diagnosis. ? Specimen(s) Received: ? Bx esophagus 40 cm ? Clinical History: ? Anemia, fecal occult blood, reflux symptoms ? Gross Description: ? Received in Hollande's fixative labelled Guy Tavarez and #1 ??bx ? esophagus 40 cm are four biopsies which vary in size from 0.2 x 0.2 x 0.2 cm up to 0.7 x 0.4 x 0.1 cm. ??The specimens are submitted intact as (A1) and (A2). ? (Jennie Brand)/kmm ? End of Report ? JOJO VIERA 02/21/2010 02/22/2010 8:2 2 EDT Tariq Anderson MD PATHOLOGY ORDERABLE S JOJO VIERA [address] [place] [address] documented in this encounter Visit Diagnoses Not on filedocumented in this encounter
--- OUTSIDE RECORDS SUMMARY | 2024-02-01 00:23 | XMS_ITS | Encounter Summary ---
Author Organization [facility] [place] [address] Care Team Providers Care Operations Section Manager Name Role Phone Prince Murray DO Primary Care Provider Encounter Details Date Type Department Care Team (Late st Contact Info) Description 08/15/2010 [place] [address] Mal Carmichael MD [facility] [place] [address] Social History Tobacco Use Types Packs/Day Years [...] Associated Diagnosis Comments SURGICAL PATHOLOGY REPORT Routine 08/15/2010 2:12 PM EST documented in this encounter Results * Surgical Pathology Report (08/15/2010 2:12 PM EST) Surgical Pathology Report [id number] ? Location: 4W The signing pathologist has (i) examined the relevant preparation(s) for the specimen(s) and (ii) rendered or confirmed the diagnosis(es). . ?Pathology Addendum Report Addendum Discussion This case has been reviewed by Nakul Alexandra MD of [facility] ([facility] by report dated 12/05/2011 with the accession number [id number]. The [facility] diagnosis is in minor disagreement with our diagnosis in that Dr. Alexandra feels that there is no definitive evidence of demyelination/remye lation, but focal evidence of an axonal neuropathy. ??For the full text of the [facility] report(s) please refer to Non-DH Documentation Pathology in the electronic health record (eDH). 12/12/11 JLL 12/14/11 Verified by: ? Catie BECKHAM, PhD, Nigel Macedo ?Pathologist ?(Electronic Signature) The attending pathologist whose signature appears on this report has reviewed all diagnostic slides and has edited the gross and/or microscopic portion of the report in rendering the final pathologic diagnosis. ?Pathology Surgical Pathology Final Report Clinical Information Specimen Submitted: A - Sural nerve biopsy, left ankle Clinical History: Not provided Clinical Diagnosis: ? 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 Sural nerve biopsy, fresh. Qty/Size/Weight: ?Single, 2.4 x 0.1 cm. Tissue Description: ?? Single length of nerve. Sections/Processing : ??The specimen is sectioned, and a manufacturer's representative ?section is submitted for EM and nerve tease. ??(R1) ?aje/BTP Microscopic Description The specimen consists of a fragment of peripheral nerve. ??There is no significant inflammation in the nerve or in the associated blood vessels. ??Specifically there is no histologic evidence of vasculitis. Trichrome-stained sections show an increased amount of endoneural collagen and a substantial decrease in the number of large myelinated fibers. A Congo red stain shows no evidence of amyloid deposition in the specimen. Light microscopy of the plastic-embedded portion of the specimen shows a substantial loss of myelinated fibers with many of the remaining fibers having a myelin coat which is inappropriately thin for the diameter of the axon. A teased fiber preparation contains 50 fibers for examination, but the majority of them are small bundles of unmyelinated or thinly myelinated fibers. No convincing . Microscopic Description examples of fibers with myelin coats of different thicknesses on opposite sides of an internode are identified. There are a couple of fibers replaced by myelin digestion chambers (ovoids). Diagnosis A - Sural nerve biopsy: Chronic, primarily demyelinating neuropathy, see comment. 08/29/10 CHR 08/29/10 Verified by: ? Catie BECKHAM, PhD, Nigel Macedo ?Pathologist ?(Electronic Signature) The attending pathologist whose signature appears on this report has reviewed all diagnostic slides and has edited the gross and/or microscopic portion of the report in rendering the final pathologic diagnosis. Comment The characterization of this neuropathy as primarily demyelinating is based primarily on the findings in the light microscopy of the plastic embedded tissue. We were specifically asked to address the question of whether this patient has a vasculitis; there was no histologic evidence of vasculitis in this biopsy. SAHWNEE RIVERO 08/15/2010 2:12 PM EST Mal Carmichael MD PATHOLOGY/CYTOLOGY O RDERABLES SHAWNEE RIVERO documented in this encounter Visit Diagnoses Not on filedocumented in this encounter Care Teams Operations Section Manager Relationship Specialty Start Date End Date Prince Murray DO [address] [place] [address] PCP - General 06/07/10 documented as of this encounter
--- OUTSIDE RECORDS SUMMARY | 2024-02-01 00:23 | XMS_ITS | Clinical Summary ---
Author Organization [facility] Address [address] [place] [address] Care Team Providers Care Orthopedic Shoe Maker Name Role Phone Prince Murray DO Primary Care Provider [phone] Social History Tobacco Use Types Packs/Day Years Used Date Smoking Tobacco: Never Assessed Interpersonal Safety Answer Date Record ed Physically Hurt Never 03/10/2020 Verbally Threaten Not on file 03/10/2020 Sex and Gender Information Value Date Recorded Sex Assigned at Not on file Gender Identity Not on file Sexual Orientation Not on file Plan of Treatment Health Maintenance Due Date Last Done Comments RSV Immunization ( o r 60+ Years) (1 - 1-dose 60+ series) 2020 COVID-19 Vaccine ( season) 2023 Hepatitis C Screen Completed 12/19/2021 Procedures Procedure Name Priority Date/Time Associated Diagnosis Comments HEPATITIS C AB W REFLEX TO HCV RNA BY PCR Today 12/19/2021 8:28 EDT from Last 3 Months or Most Recently Relevant to Health Maintenance Results * HEPATITIS C AB W REFLEX TO HCV RNA BY PCR (12/19/2021 8:28 EDT) Hep C Antibody Negative Negative 12/20/2021 8:07 EDT [facility] Blood VENOUS BLOOD / Unknown 12/19/2021 8:28 EDT 12/19/2021 17:09 EDT Provider Outr Resulting Lab CHEMISTRY & BLOOD GAS ORDERABLES [facility] [address] [place] [address] from Last 3 Months or Most Recently Relevant to Health Maintenance Care Teams Orthopedic Shoe Maker Relationship Specialty Start Date End Date Prince Murray DO [address] [place] [address] PCP - General 03/05/20
--- OUTSIDE RECORDS SUMMARY | 2024-02-01 00:23 | XMS_ITS | Encounter Summary ---
Author Organization [facility] [place] [address] Care Team Providers Care Slot Router Name Role Phone Prince Murray DO Primary Care Provider Reason for Visit * Reason Onset Date Comments Other 07/18/2016 Encounter Details Date Type Department Care Team (Late st Contact Info) Description 07/18/2016 Telephone [place] [address] Jayda Alvarado MD [facility] [place] [address] Other Social History Tobacco Use Types Packs/Day Years Used Date Smoking Tobacco: Never Sex and Gender Information Value Date Recorded Sex Assigned at Not on file Gender Identity Not on file Sexual Orientation Not on file documented as of this encounter Miscellaneous Notes * Telephone Encounter - Alejandra Hull RN - 07/18/2016 3:34 PM EST Creatinine order placed in system. * Telephone Encounter - Shaq Edwards - 07/18/2016 2:28 PM EST Caller: Farideh If not Pt / Relation to pt: from CT scheduling Caller Contact Number: [phone] Best time to reach pt back: any Reason for call: Farideh called to let us know that the patient needs lab orders for a creatinine levelentered so that he can have a creatinine level check before his CT tomorrow. Before 2:30pm - Informed caller that nurse will call back by the end of the day After 230 pm - Informed caller that if the nurse does not call back by the end of the day they willbe called tomorrow AM - Best number for tomorrow am: documented in this encounter Plan of Treatment Not on file documented as of this encounter Visit Diagnoses Not on filedocumented in this encounter Care Teams Slot Router Relationship Specialty Start Date End Date Prince Murray DO [address] [place] [address] PCP - General 06/07/10 documented as of this encounter
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
--- OUTSIDE RECORDS SUMMARY | 2024-02-01 00:23 | XMS_ITS | Encounter Summary ---
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 & Pelvis w Contrast Jayda Alvarado MD [facility] [place] [address] [facility] [place] [address] Referral ID Status Reason Start Date Expiration Date V isits Requested Visits Authorized [id number] Closed Specialty Service Requested 06/14/2016 06/14/2017 1 1 * Diagnostic Test (Routine) - Specialty Diagnoses / Procedures Referred By Randal doyle Referred To Contact Radiology Diagnoses Paraneoplastic neuropathy Procedures CT Chest w Contrast Jayda Alvarado MD [facility] [place] [address] [facility] [place] [address] Referral ID Status Reason Start Date Expiration Date Visits Requested Visits Authorized [id number] Specialty Service Requested 06/14/2016 06/14/2017 1 1 Reason for Visit * Diagnostic Test (Routine) - Closed Specialty Diagnoses / Procedures Referred By Randal t Referred To Contact Radiology Diagnoses Paraneoplastic neuropathy Procedures CT Abdomen & Pelvis w Contrast Jayda Alvarado MD [facility] [place] [address] [facility] [place] [address] Referral ID Status Reason Start Date Expiration Date V isits Requested Visits Authorized [id number] Closed Specialty Service Requested 06/14/2016 06/14/2017 1 1 Encounter Details Date Type Department Care Team (Latest Contact Info) Description 07/19/2016 8:29 AM EST - 07/19/2016 11:59 PM EST Hospital [place] [address] Jayda Alvarado MD [facility] [place] [address] Paraneoplastic neuropathy Discharge Disposition: Home Social History Tobacco Use Types Packs/Day Years Used Date Smoking Tobacco: Never Sex and Gender Information Value Date Recorded Sex Assigned at Not on file Gender Identity Not on file Sexual Orientation Not on file documented as of this encounter Medications at Time of Discharge Medication Sig Dispensed Refills Start Date End Date amitriptyline (ELAVIL) 25 mg TabletIndications:Sensor y neuronopathy [...] neuronopathy Take 20 mg by mouth daily. baclofen (LIORESAL) 10 mg TabletIndications:Sensor y neuronopathy Take 10 mg by mouth daily. 06/17/2014 07/01/2019 HYDROcodone-acetaminophe n (NORCO) 7.5-325 mg TabletIndications:Sensor y neuronopathy Four times a day 10/16/2012 9 potassium chloride (MICRO-K) 10 mEq Capsule, Sustained ReleaseIndications:Senso ry neuronopathy Take 10 mEq by mouth daily. Reported on 10/18/2016 11/12/2012 07/01/2019 potassium chloride (K-DUR/KLOR-CON) 20 mEq Tab Sust.Rel. Particle/CrystalIndicati ons:Sensory neuronopathy Take 20 mEq by mouth daily. 3 12/27/2015 07/01/2019 clobetasol (TEMOVATE) 0.05 % ointmentIndications:Ecze ma Apply topically 2 times daily. For only 2 weeks. 30 g 0 01/18/2012 07/01/2019 Triamcinolone Acetonide-L.S.B. 0.1 % OintIndications:Eczema Apply topically 2 times daily. Start after the 2 weeks of Clobetasol. 30 g 1 01/18/2012 07/01/2019 ALLOPURINOL ORAL 05/10/2009 07/01/2019 ranitidine (ZANTAC) 150 mg tablet 05/10/2009 07/01/2019 documented as of this encounter Plan of Treatment Not on file documented as of this encounter Procedures Procedure Name Priority Date/Time Associated Diagnosis Comments CT ABDOMEN AND PELVIS W CONTRAST Routine 07/19/2016 10:45 AM EST Paraneoplastic neuropathy CT CHEST W CONTRAST Routine 07/19/2016 1 0:45 AM EST Paraneoplastic neuropathy documented in this encounter Results * CT Abdomen & Pelvis w Contrast (07/19/2016 10:45 AM EST) Anatomical Region Laterality Modality Abdomen, Pelvis Computed Tomogra phy Impressions 07/19/2016 12:10 PM EST 1. ??No mass identified within the chest, abdomen, or pelvis. 2. ??3 mm noncalcified left lower lobe nodule is of doubtful significance. 3. ??Diffuse mild hepatic steatosis. 4. ??Cholelithiasis without acute cholecystitis. 5. ??Bilateral multifocal renal cortical scarring. 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 COMPARISON: None FINDINGS: Chest Lungs and large airways: 3 mm peripheral left lower lobe noncalcified pulmonary nodule.. Lungs otherwise clear. Central airways are patent. Pleura: No effusion Heart: Normal size, no pericardial effusion Mediastinum and suhail: No mass or lymphadenopathy. Abdomen/pelvis Liver: Diffusely slightly low in attenuation (70 Hounsfield units) series. Patent hepatic and portal veins. No focal lesions. Bile ducts: Normal caliber Gallbladder: Small focus of high attenuation layers dependently. No gallbladder wall thickening or pericholecystic fluid. Pancreas: Normal Spleen: Normal size. No focal lesions. Adrenals: Normal Kidneys: Bilateral multifocal cortical renal scarring noted. No hydronephrosis or calculi. Lymph nodes: No enlarged abdominal or pelvic lymph nodes Bowel: No dilated small or large bowel or bowel wall thickening. No mesenteric inflammation. Peritoneum and mesentery: No free fluid, free air, or focal collection. Reproductive organs: Prostate not enlarged. Bladder within normal limits. Osseous structures: There are degenerative changes within the spine. No destructive osseous lesions. 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 COMPARISON: None FINDINGS: Chest Lungs and large airways: 3 mm peripheral left lower lobe noncalcifiedpulmonary nodule.. Lungs otherwise clear. Central airways are patent. Pleura: No effusion Heart: Normal size, no pericardial effusion Mediastinum and suhail: No mass or lymphadenopathy. Abdomen/pelvis Liver: Diffusely slightly low in attenuation (70 Hounsfield units)series. Patent hepatic and portal veins. No focal lesions. Bile ducts: Normal caliber Gallbladder: Small focus of high attenuation layers dependently. Nogallbladder wall thickening or pericholecystic fluid. Pancreas: Normal Spleen: Normal size. No focal lesions. Adrenals: Normal Kidneys: Bilateral multifocal cortical renal scarring noted. Nohydronephrosis or calculi. Lymph nodes: No enlarged abdominal or pelvic lymph nodes Bowel: No dilated small or large bowel or bowel wall thickening. Nomesenteric inflammation. Peritoneum and mesentery: No free fluid, free air, or focal collection. Reproductive organs: Prostate not enlarged. Bladder within normal limits. Osseous structures: There are degenerative changes within the spine. No destructive osseous lesions. IMPRESSION 1. No mass identified within the chest, abdomen, or pelvis. 2. 3 mm noncalcified left lower lobe nodule is of doubtfulsignificance. 3. Diffuse mild hepatic steatosis. 4. Cholelithiasis without acute cholecystitis. 5. Bilateral multifocal renal cortical scarring. Jayda Alvarado MD [facility] CT ORDERABLES * CT Chest w Contrast (07/19/2016 10:45 AM EST) Anatomical Region Laterality Modality Chest Computed Tomogra phy Impressions 07/19/2016 12:10 PM EST 1. ??No mass identified within the chest, abdomen, or pelvis. 2. ??3 mm noncalcified left lower lobe nodule is of doubtful significance. 3. ??Diffuse mild hepatic steatosis. 4. ??Cholelithiasis without acute cholecystitis. 5. ??Bilateral multifocal renal cortical scarring. 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 COMPARISON: None FINDINGS: Chest Lungs and large airways: 3 mm peripheral left lower lobe noncalcified pulmonary nodule.. Lungs otherwise clear. Central airways are patent. Pleura: No effusion Heart: Normal size, no pericardial effusion Mediastinum and suhail: No mass or lymphadenopathy. Abdomen/pelvis Liver: Diffusely slightly low in attenuation (70 Hounsfield units) series. Patent hepatic and portal veins. No focal lesions. Bile ducts: Normal caliber Gallbladder: Small focus of high attenuation layers dependently. No gallbladder wall thickening or pericholecystic fluid. Pancreas: Normal Spleen: Normal size. No focal lesions. Adrenals: Normal Kidneys: Bilateral multifocal cortical renal scarring noted. No hydronephrosis or calculi. Lymph nodes: No enlarged abdominal or pelvic lymph nodes Bowel: No dilated small or large bowel or bowel wall thickening. No mesenteric inflammation. Peritoneum and mesentery: No free fluid, free air, or focal collection. Reproductive organs: Prostate not enlarged. Bladder within normal limits. Osseous structures: There are degenerative changes within the spine. No destructive osseous lesions. 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 COMPARISON: None FINDINGS: Chest Lungs and large airways: 3 mm peripheral left lower lobe noncalcifiedpulmonary nodule.. Lungs otherwise clear. Central airways are patent. Pleura: No effusion Heart: Normal size, no pericardial effusion Mediastinum and suhail: No mass or lymphadenopathy. Abdomen/pelvis Liver: Diffusely slightly low in attenuation (70 Hounsfield units)series. Patent hepatic and portal veins. No focal lesions. Bile ducts: Normal caliber Gallbladder: Small focus of high attenuation layers dependently. Nogallbladder wall thickening or pericholecystic fluid. Pancreas: Normal Spleen: Normal size. No focal lesions. Adrenals: Normal Kidneys: Bilateral multifocal cortical renal scarring noted. Nohydronephrosis or calculi. Lymph nodes: No enlarged abdominal or pelvic lymph nodes Bowel: No dilated small or large bowel or bowel wall thickening. Nomesenteric inflammation. Peritoneum and mesentery: No free fluid, free air, or focal collection. Reproductive organs: Prostate not enlarged. Bladder within normal limits. Osseous structures: There are degenerative changes within the spine. No destructive osseous lesions. IMPRESSION 1. No mass identified within the chest, abdomen, or pelvis. 2. 3 mm noncalcified left lower lobe nodule is of doubtfulsignificance. 3. Diffuse mild hepatic steatosis. 4. Cholelithiasis without acute cholecystitis. 5. Bilateral multifocal renal cortical scarring. 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 documented in this encounter Administered Medications Inactive Administered Medications - up to 3 most recent administrations Medication Order MAR Action Action Date Dose Rate Site iohexol (OMNIPAQUE) 350 mg/mL solution 17,500 mg 17,500 mg (50 mL), Oral, ONCE PRN, 1 dose, Starting on Sun07/19/16 at 1044, Until Sun07/19/16 at 0820, Per Protocol, Warning Vesicant/Irritant Medication , Routine Given 07/19/2016 8:20 AM EST 17,500 mg iohexol (OMNIPAQUE) 350 mg/mL solution 38,500 mg 38,500 mg (110 mL), Intravenous, ONCE PRN, 1 dose, Starting on Sun07/19/16 at 1044, Until Sun07/19/16 at 1040, Per Protocol, Warning Vesicant/Irritant Medication , Routine Given 07/19/2016 10:40 AM EST 38,500 mg documented in this encounter Care Teams Health Promotion Coordinator Relationship Specialty Start Date End Date Prince Murray DO [address] [place] [address] PCP - General 06/07/10 documented as of this encounter
--- OUTSIDE RECORDS SUMMARY | 2024-02-01 00:23 | XMS_ITS | Encounter Summary ---
[place] [address] Care Team Providers Care Trim Mounter Name Role Phone Prince Murray DO Primary Care Provider Encounter Details Date Type Department Care Team (Latest Contact Info) Description 06/12/2016 9:35 AM EST Laboratory Appointment Lab [address] [place] [address] Sensory neuronopathy Social History Tobacco Use Types [...] Associated Diagnosis Comments MISCELLANEOUS LAB REQUEST Routine 06/12/2016 10:08 AM EST Sensory neuronopathy [facility] RUTLEDGE TEST-RUTLEDGE Routine 06/12/2016 1 0:08 AM EST TISSUE TRANSGLUTAMINASE, IGA Routine 06/12/2016 10:08 AM EST Sensory neuronopathy documented in this encounter Results * [facility] Rutledge Test-Rutledge (06/12/2016 10:08 AM EST) [facility] Rutledge Test ? Result ?Flag ??Unit ??RefValue ---- Alpha-Galactosi dase, Leukocytes ?TNP ?Alpha-Galacto sidase, Leukocytes was cancelled on 06/16/2016 ?at 08:03; Due to age of specimen. [facility] Blood specimen (specimen) Venous Draw / Unknown 06/12/2016 10:08 AM EST 06/14/2016 11:41 AM EST Narrative Resulting Agency Comment Spec In Lab Jayda Alvarado MD CHEMISTRY ORDERABLE S Performing Organization Address [facility] de Phone Number [facility] [place] [address] * Miscellaneous Lab request (06/12/2016 10:08 AM EST) [facility] Lab Result Request received in lab. [facility] Blood specimen (specimen) 06/12/2016 10:08 AM EST 06/12/2016 10:12 AM EST Narrative Resulting Agency Comment Spec In Lab Jayda Alvarado MD HEMATOLOGY ORDERABL ES Performing Organization Address [facility] de Phone Number [facility] [place] [address] * Tissue transglutaminase, IgA (06/12/2016 10:08 AM EST) [facility] TTG IgA Ab 0.4 0.1 - 10.0 u/ml [facility] Comment: Negative = <7 U/mL Equivocal = 7-10 U/mL Positive = >10 U/mL Blood specimen (specimen) 06/12/2016 10:08 AM EST 06/12/2016 1:30 PM EST Narrative Resulting Agency Comment Spec In Lab Jayda Alvarado MD IMMUNOLOGY ORDERABL ES Performing Organization Address City/State/[facility] Co de Phone Number [facility] [place] [address] documented in this encounter Visit Diagnoses Diagnosis 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
--- OUTSIDE RECORDS SUMMARY | 2024-02-01 00:23 | XMS_ITS | Encounter Summary ---
Author Organization [facility] [address] Care Team Providers Care New Car Inspector Name Role Phone Prince Murray DO Primary Care Provider Encounter Details Date Type Department Care Team (Latest Contact Info) Description 10/18/2016 12:47 PM EDT - 10/18/2016 11:59 PM EDT [place] [address] Discharge Disposition: Home Social History Tobacco Use [...] Sig Dispensed Refills Start Date End Date multivitamin (THERAGRAN) TabletIndications:Neurop athy Take 1 tablet [...] neuronopathy Take 20 mg by mouth daily. glucosamine sulfate 500 mg TabletIndications:Neurop athy Take 1,000 mg by mouth 2 times daily. 07/01/2019 baclofen (LIORESAL) 10 mg TabletIndications:Sensor y neuronopathy [...] on filedocumented in this encounter Care Teams New Car Inspector Relationship Specialty Start Date End Date Prince Murray DO [address] [place] [address] PCP - General 06/07/10 documented as of this encounter
--- OUTSIDE RECORDS SUMMARY | 2024-02-01 00:23 | XMS_ITS | Encounter Summary ---
Author [facility] [place] [address] Care Team Providers Care Denture Model Maker Name Role Phone Prince Murray DO Primary Care Provider [phone] Reason for Visit * Reason Onset Date Comments Other 10/27/2016 Encounter Details Date Type Department Care Team (Late st Contact Info) Description 10/27/2016 [place] [address] Jayda Alvarado MD [facility] [place] [address] Other Social History Tobacco Use Types Packs/Day [...] Telephone Encounter - Alejandra Hull RN - 10/27/2016 9:39 AM EDT Call back to Dr. Murray, and spoke with is nurse. Dr. Murray would like to have Dr. Alvarado speak to him between patients this morning. * Telephone Encounter - Radha Dyer - 10/27/2016 9:21 AM EDT Caller: Dr. Murray If not Pt / Relation to pt: PCP Best time to reach caller: this AM Before 2:30pm - Informed caller that nurse will call back by the end of the day Best number to reach caller: [phone] Reason for call: Called to speak with Dr. Alvarado about this mutual patient. Would like a call back this AM-when returning call have the principal secretary interrupt him if he is with a patient. documented in this encounter Plan of Treatment Not on file documented as of this encounter Visit Diagnoses Not on filedocumented in this encounter Care Teams Denture Model Maker Relationship Specialty Start Date End Date Prince Murray DO [address] [place] [address] PCP - General 06/07/10 documented as of this encounter
--- OUTSIDE RECORDS SUMMARY | 2024-02-01 00:23 | XMS_ITS | Encounter Summary ---
Author Organization [facility] [place] [address] Care Team Providers Care Core Inserter Name Role Phone Prince Murray DO Primary Care Provider Encounter Details Date Type Department Care Team (Latest Contact Info) Description 08/15/2010 12:00 PM EST Procedure visit [address] [address] Natasha العراقي MD [facility] [address] Discharge Disposition: Home Social History Tobacco Use Types Packs/Day Years Used Date Smoking Tobacco: Never Assessed Sex and Gender Information Value Date Recorded Sex Assigned at Not on file Gender Identity Not on file Sexual Orientation Not on file documented as of this encounter Plan of Treatment Not on file documented as of this encounter Procedures Procedure Name Priority Date/Time Associated Diagnosis Comments PATHOLOGY ADDENDUM REPORT Routine 08/15/2010 2:12 PM EST SURGICAL PATHOLOGY REPORT Routine 08/15/2010 2:12 PM EST documented in this encounter Results * PATHOLOGY ADDENDUM REPORT (08/15/2010 2:12 PM EST) Addendum Report ? [facility] ? Provider: ?? NATASHA العراقي ?? Pt. Name: ?? GUY TAVAREZ ? Acc #: ?[id number] ?Pt. ? Col Date: ?? 08/15/2010 ? /Sex: ?1960,(51 years),Male ? Rec Date: ?? 08/15/2010 ? LOC: ?4W ? ADDENDUM REPORT ? ---Addendum Discussion--- ? This case has been reviewed by Nakul Alexandra MD of [facility] ? [facility] ([facility]) by report dated 12/05/2011 with the accession number [id number]. ? The [facility] diagnosis is in minor disagreement with our diagnosis in that Dr. ? Ibrahima feels that there is no definitive evidence of ? demyelination/rem yelation, but focal evidence of an axonal neuropathy. ??For ? the full text of the [facility] report(s) please refer to Non- ? DH Documentation Pathology in the electronic health record (eDH). ? 12/12/11 ? JLL ? 12/14/11 Verified by: ? Catie BECKHAM, PhD, Nigel Macedo ? Pathologist ? (Electronic Signature) ? The attending pathologist whose signature appears on this report has ? reviewed all diagnostic slides and has edited the gross and/or ? microscopic portion of the report in rendering the final pathologic ? diagnosis. [facility] 08/15/2010 2:12 PM EST Natasha العراقي MD PATHOLOGY/CYTOLOGY O RDERABLES [facility] * PATHOLOGY SURGICAL PATHOLOGY FINAL REPORT (08/15/2010 2:12 PM EST) Surgical Pathology Report ? [facility] ? Provider: ?? NATASHA اعلراقي ?? Pt. Name: ?? GUY TAVAREZ ? Acc #: ?[id number] ?Pt. ? Col Date: ?? 08/15/2010 ? /Sex: ?1960,(50 years),Male ? Rec Date: ?? 08/15/2010 ? LOC: ?4W ? SURGICAL PATHOLOGY ? ---Pathologic Diagnosis--- ? A - Sural nerve biopsy: Chronic, primarily demyelinating neuropathy, see ? comment. ? 08/29/10 ? [facility] ? 08/29/10 Verified by: ? Catie BECKHAM, PhD, Nigel Macedo ? Pathologist ? (Electronic Signature) ? The attending pathologist whose signature appears on this report has ? reviewed all diagnostic slides and has edited the gross and/or ? microscopic portion of the report in rendering the final pathologic ? diagnosis. ? ---Comment--- ? The characterization of this neuropathy as primarily demyelinating is based ? primarily on the findings in the light microscopy of the plastic embedded ? tissue. ? We were specifically asked to address the question of whether this patient ? has a vasculitis; there was no histologic evidence of vasculitis in this ? biopsy. ? ---Microscopic Description--- ? The specimen consists of a fragment of peripheral nerve. ??There is no ? significant inflammation in the nerve or in the associated blood vessels. ? Specifically there is no histologic evidence of vasculitis. ? Trichrome-stained sections show an increased amount of endoneural collagen ? and a substantial decrease in the number of large myelinated fibers. ? A Congo red stain shows no evidence of amyloid deposition in the specimen. ? Light microscopy of the plastic-embedded portion of the specimen shows a ? substantial loss of myelinated fibers with many of the remaining fibers ? having a myelin coat which is inappropriately thin for the diameter of the ? axon. ? A teased fiber preparation contains 50 fibers for examination, but the ? majority of them are small bundles of unmyelinated or thinly myelinated ? fibers. No convincing examples of fibers with myelin coats of different ? thicknesses on opposite sides of an internode are identified. There are a ? couple of fibers replaced by myelin digestion chambers (ovoids). ? [facility] ? Provider: ?? NATASHA العراقي ?? Pt. Name: ?? GUY TAVAREZ ? Acc #: ?[id number] ?Pt. ? Col Date: ?? 08/15/2010 ? /Sex: ?1960,(50 years),Male ? Rec Date: ?? 08/15/2010 ? LOC: ?4W ? SURGICAL PATHOLOGY ? ---Gross Description--- ? Labeled/Fixative: ? Sural nerve biopsy, fresh. ? Qty/Size/Weight: ?Single, 2.4 x 0.1 cm. ? Tissue Description: ?? Single length of nerve. ? Sections/Processing : ??The specimen is sectioned, and a sales representative graphic art ? section is submitted for EM and nerve tease. ??(R1) ? aje/BTP ? ---Clinical Information--- ? Specimen Submitted: ? A - Sural nerve biopsy, left ankle ? Clinical History: ? Not provided ? Clinical Diagnosis: ? 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
--- OUTSIDE RECORDS SUMMARY | 2024-02-01 00:23 | XMS_ITS | Encounter Summary ---
Author Organization [facility] Address [address] [place] [address] Care Team Providers Care Superintendent Commissary Name Role Phone Prince Murray DO Primary Care Provider [phone] Encounter Details Date Type Department Care Team (Late st Contact Info) Description 03/08/2020 Lab Requisition [facility] Pathology & Laboratory Medicine - [facility] [address], [place] [address] Outr Resulting Lab, Provider Social History Tobacco [...] on filedocumented in this encounter Care Teams Superintendent Commissary Relationship Specialty Start Date End Date Prince Murray DO [address] [place] [address] PCP - General 03/05/20 documented as of this encounter
--- OUTSIDE RECORDS SUMMARY | 2024-02-01 00:23 | XMS_ITS | Encounter Summary ---
Author Organization [facility] [place] [address] Care Team Providers Care Reinsurance Claims Analyst Name Role Phone Prince Murray DO Primary Care Provider Encounter Details Date Type Department Care Team (Late st Contact Info) Description 05/31/2016 [place]phone [place] [address] Tabitha Roca Social History Tobacco Use Types Packs/Day Years Used Date Smoking Tobacco: Never Sex and Gender Information Value Date Recorded Sex Assigned at Not on file Gender Identity Not on file Sexual Orientation Not on file documented as of this encounter Miscellaneous Notes * Telephone Encounter - Tabitha Roca - 05/31/2016 2:21 PM EST RECEIVED E MAIL FROM [facility] ON BEHALF OF Dr. Alvarado ASKING TO CHECK COVERAGE AND AUTHORIZATION FOR NOT YET SCHEDULED GENETIC CODE [id number]. I CONFIRMED [employer] PER EPIC. NO AUTH IS NEEDED FORPROCEDURE [id number] NO AUTH IS NEEDED PER [employer] PER CERT LIST. I E MAILED [facility] AND Dr. Alvarado. documented in this encounter Plan of Treatment Not on file documented as of this encounter Visit Diagnoses Not on filedocumented in this encounter Care Teams Reinsurance Claims Analyst Relationship Specialty Start Date End Date Prince Murray DO [address] [place] [address] PCP - General 06/07/10 documented as of this encounter
--- OUTSIDE RECORDS SUMMARY | 2024-02-01 00:23 | XMS_ITS | Encounter Summary ---
Author Organization [facility] [place] [address] [address] Team Providers Care Ct Mri Technologist Name Role Phone Prince Murray DO Primary Care Provider Encounter Details Date Type Department Care Team (Late st Contact Info) Description 05/31/2016 [place] [address] Jayda Alvarado MD [facility] [place] [address] Social History Tobacco Use Types Packs/Day Years Used Date Smoking Tobacco: Never Sex and Gender Information Value Date Recorded Sex Assigned at Not on file Gender Identity Not on file Sexual Orientation Not on file documented as of this encounter Miscellaneous Notes * Telephone Encounter - Alejandra Hull RN - 05/31/2016 1:[address] Alvarado: ?? I need the blood work and the electrical tests that were done at [facility] for ??Was done through Dr. Murray. Call placed to [facility] and requested EMG report and lab results. Medical records will fax us the requested records. documented in this encounter Plan of Treatment Not on file documented as of this encounter Visit Diagnoses Not on filedocumented in this encounter Care Teams Ct Mri Technologist Relationship Specialty Start Date End Date Prince Murray DO [address] [place] [address] PCP - General 06/07/10 documented as of this encounter
--- OUTSIDE RECORDS SUMMARY | 2024-02-01 00:23 | XMS_ITS | Encounter Summary ---
Author Organization [facility] [place] [address] Care Team Providers Care Brush Cutter Name Role Phone Prince Murray DO Primary Care Provider [phone] Reason for Referral * Diagnostic Test (Routine) - Closed Specialty Diagnoses / Procedures Referred By Randal t Referred To Contact Radiology Diagnoses Paraneoplastic neuropathy Procedures CT Abdomen & Pelvis w Contrast Jayda Alvarado MD [facility] [place] [address] [facility] [place] [address] Referral ID Status Reason Start Date Expiration Date V isits Requested Visits Authorized [id number] Closed Specialty Service Requested 06/14/2016 06/14/2017 1 1 * Diagnostic Test (Routine) - Specialty Diagnoses / Procedures Referred By Randal doyle Referred To Contact Radiology Diagnoses Paraneoplastic neuropathy Procedures CT Chest w Contrast Jayda Alvarado MD [facility] [address] [facility] [place] [address] Referral ID Status Reason Start Date Expiration Date Visits Requested Visits Authorized [id number] Specialty Service Requested 06/14/2016 06/14/2017 1 1 Encounter Details Date Type Department Care Team (Late st Contact Info) Description 06/14/2016 [place] [address] Jayda Alvarado MD [facility] [place] [address] Social History Tobacco Use Types Packs/Day Years Used Date Smoking Tobacco: Never Sex and Gender Information Value Date Recorded Sex Assigned at Not on file Gender Identity Not on file Sexual Orientation Not on file documented as of this encounter Miscellaneous Notes * Telephone Encounter - Jayda Alvarado MD - 06/14/2016 5:22 PM EST Called to discuss results of paraneoplastic antibody panel. Recommended CT scan of the chest, abdomen and pelvis. If negative will consider PET scan. Patient voiced understanding and will come for screening. documented in this encounter Plan of Treatment Not on file documented as of this encounter Results * CT Abdomen & [...] multifocal renal cortical scarring. 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
--- OUTSIDE RECORDS SUMMARY | 2024-02-01 00:23 | XMS_ITS | Referral Summary ---
Author Organization [facility] Address [address] [place] [address] Care Team Providers Care Resource Technician Name Role Phone Prince Murray DO Primary Care Provider [phone] Social History Tobacco Use Types Packs/Day Years Used Date Smoking Tobacco: Never Assessed Interpersonal Safety Answer Date Record ed Physically Hurt Never 03/10/2020 Verbally Threaten Not on file 03/10/2020 Sex and Gender Information Value Date Recorded Sex Assigned at Not on file Gender Identity Not on file Sexual Orientation Not on file Plan of Treatment Not on file Procedures Procedure Name Priority Date/Time Associated Diagnosis Comments HEPATITIS C AB W REFLEX TO HCV RNA BY PCR Today 12/19/2021 8:28 EDT from Last 3 Months or Most Recently Relevant to Health Maintenance Results * HEPATITIS C AB W REFLEX TO HCV RNA BY PCR (12/19/2021 8:28 EDT) Hep C Antibody Negative Negative 12/20/2021 8:07 EDT [facility] Blood VENOUS BLOOD / Unknown 12/19/2021 8:28 EDT 12/19/2021 17:09 EDT Provider Outr Resulting Lab CHEMISTRY & BLOOD GAS ORDERABLES [facility] [address] [place] [address] from Last 3 Months or Most Recently Relevant to Health Maintenance Care Teams Resource Technician Relationship Specialty Start Date End Date Prince Murray DO [address] [place] [address] [facility] - General 03/05/20
--- OUTSIDE RECORDS SUMMARY | 2024-02-01 00:23 | XMS_ITS | Encounter Summary ---
[place] [address] Care Team Providers Care Wire Brusher Name Role Phone Prince Murray DO Primary Care Provider Encounter Details Date Type Department Care Team (Latest Contact Info) Description 07/19/2016 8:50 AM EST Laboratory Appointment Lab [address] [place] [id number] Polyneuropathy Social History Tobacco Use Types Packs/Day Years Used Date Smoking Tobacco: Never Sex and Gender Information Value Date Recorded Sex Assigned at Not on file Gender Identity Not on file Sexual Orientation Not on file documented as of this encounter Plan of Treatment Not on file documented as of this encounter Procedures Procedure Name Priority Date/Time Associated Diagnosis Comments CREATININE Routine 07/19/2016 9:00 AM EST Polyneuropathy documented in this encounter Results * (ABNORMAL) Creatinine (07/19/2016 9:00 AM EST) Creatinine 1.29 0.80 - 1.50 mg/dL [facility] Comment: Please note that the pediatric reference intervals supplied above were not validated at [facility]. Results from pediatric patients should be interpreted in conjunction to the patient's age, height and muscle mass. Estimated GFR 58(L) >=60 [facility] Comment: This estimated GFR (eGFR) value [...] the following links into your internet browser. [email or web address] Blood specimen (specimen) 07/19/2016 9:00 AM EST 07/19/2016 9:04 AM EST Narrative Resulting Agency Comment Spec In Lab Jayda Alvarado MD CHEMISTRY ORDERABLE S Performing Organization Address City/State/[facility] Co de Phone Number [facility] [place] [address] documented in this encounter Visit Diagnoses Diagnosis Polyneuropathy Unspecified hereditary and idiopathic peripheral neuropathy documented in this encounter Care Teams Wire Brusher Relationship Specialty Start Date End Date Prince Murray DO [address] [place] [address] PCP - General 06/07/10 documented as of this encounter
--- NOTE | 2024-02-01 06:45 | DI.US_ITS ---
Exam(s) US EXTREMITY VENOUS BI EXAM: US EXTREMITY VENOUS BI CLINICAL HISTORY: leg swelling,M79.89 TECHNIQUE: Grayscale, color, and doppler imaging of the deep venous system of both lower extremities was performed. COMPARISON: US US ECHOCARDIOGRAM from 04/27/2023 FINDINGS: There is no evidence of intraluminal thrombus and there is normal compression and augmentation demons trated within the common femoral veins, femoral veins, and popliteal veins of both lower extremities. In the calves the interrogated veins also exhibit normal compression/ augmentation properties. The greater saphenous veins also appear patent as do the saphenofemoral junctions bilaterally.. IMPRESSION: 1. No ultrasound evidence of DVT in either lower extremity. DATA REPOSITORY:
--- NOTE | 2024-02-01 10:46 | DI.RAD_ITS ---
Exam(s) XR CHEST 2V PA LATERAL EXAM: XR CHEST 2V PA LATERAL CLINICAL HISTORY: leg swelling, cough,M79.89. TECHNIQUE: 2D digital imaging was performed. COMPARISON: Chest x-ray 07/28/2021 FINDINGS: 2 views: Heart size is normal. The mediastinum is not widened. Lungs are clear. No infiltrates nor pleural effusions. IMPRESSION: No acute pulmonary findings. DATA REPOSITORY: RADIATION DOSE DELIVERED:
== END ==
PROVIDERS: PCP Nurse Practitioner Family; Visit Provider Physician Assistant
DX: M79.89 Other specified soft tissue disorders (principal)
CPT/HCPCS: 71046; 93970

== ENCOUNTER 2024-02-01 09:53 | Outpatient (CLI) | payer OTHER, SELFPAY ==
[2024-02-01 10:08] LABS: Abs Immature Grans 0.02 10^3/uL (0.0-0.06); Absolute Basophil Count 0.07 10^3/uL (0.0-0.2); Absolute Eosinophil Count 0.15 10^3/uL (0.0-0.7); Absolute Lymphocyte Count 1.64 10^3/uL (1.2-3.4); Absolute Neutrophil Count 5.66 10^3/uL (1.2-6.7); Basophils % 0.9 %; Eosinophils % 1.8 %; HCT 42.5 % (40.0-50.0); Immature Grans % 0.2 %; Lymphocytes % 20.1 %; MCH 32.5 pg (27.0-33.0); MCHC 32.9 % (32.0-36.0); MCV 99 fL (80-95); MPV 9.3 fL (8.0-11.0); Monocytes % 7.4 %; Neutrophils % 69.6 %; Platelet Count 212 10^3/uL (130-400); RBC 4.31 10^6/uL (4.36-5.78); RDW 12.6 % (11.8-14.1); WBC 8.14 10^3/uL (4.4-10.8)
[2024-02-01 10:52] LABS: ALT 33 U/L (16-63); AST 21 U/L (15-37); Alkaline Phosphatase 93 U/L (46-116); Anion Gap 10.1 mmol/L (3-11); BUN 18 mg/dL (7-18); Bilirubin, Total 0.57 mg/dL (0.2-1.0); CO2 29.9 mmol/L (21.0-32.0); CREATININE 1.5 mg/dL (0.70-1.30); Calcium 9.2 mg/dL (8.5-10.1); Chloride 103 mmol/L (98-107); Estimated GFR 51.99 (mL/min/1.73m2); Glucose 89 mg/dL (74-106); NT-proBNP 141 pg/mL (<300); Potassium 4.1 mmol/L (3.5-5.1); Sodium 143 mmol/L (136-145); Total Protein 7.7 g/dL (6.4-8.2)
== END 2024-02-01 09:54 | disposition home or self-care (01) ==
PROVIDERS: PCP Nurse Practitioner Family; Visit Provider Physician Assistant
DX: M79.89 Other specified soft tissue disorders (principal); R60.0 Localized edema
CPT/HCPCS: 36415; 80053; 83880; 85025

== ENCOUNTER 2024-06-03 07:46 | Outpatient (CLI) | payer OTHER, SELFPAY ==
--- NOTE | 2024-06-03 07:45 | RT.EKG_ITS ---
APPROVED REPORT Exam: Resting ECG Reason for Exam: PSVT Patient Location: O HR:61 bpm ECG Measurements Heart Rate 61 AXIS VT 175 P 54 QRSd 91 QRS -14 QT 377 T 57 QTc 380 Conclusion Sinus rhythm...normal P axis, V-rate early transition...QRS area>0 in V2 Otherwise normal ECG
== END 2024-06-03 07:47 | disposition home or self-care (01) ==
LOC: DI.CARD 07:47
PROVIDERS: PCP Nurse Practitioner Family; Visit Provider Internal Medicine Cardiovascular Disease
DX: Z86.79 Personal history of other diseases of the circulatory system (principal); I35.0 Nonrheumatic aortic (valve) stenosis
CPT/HCPCS: 93010

== ENCOUNTER 2025-03-05 14:30 | Outpatient (CLI) | payer OTHER, SELFPAY ==
[2025-03-05 14:16] LABS: Abs Immature Grans 0.02 10^3/uL (0.0-0.06); HCT 42.0 % (40.0-50.0); HGB 13.9 g/dL (13.5-17.5); Immature Grans % 0.3 %; MCH 31.6 pg (27.0-33.0); MCHC 33.1 % (32.0-36.0); MCV 96 fL (80-95); MPV 9.4 fL (8.0-11.0); Platelet Count 199 10^3/uL (130-400); RBC 4.40 10^6/uL (4.36-5.78); RDW 13.3 % (11.8-14.1); RDW-SD 47.1 fL; WBC 7.07 10^3/uL (4.4-10.8)
[2025-03-05 15:05] LABS: Anion Gap 11.5 mmol/L (3-11); BUN 16 mg/dL (7-18); CO2 27.5 mmol/L (21.0-32.0); Calcium 9.2 mg/dL (8.5-10.1); Calculated LDL 53 mg/dL (<100); Chloride 104 mmol/L (98-107); Cholesterol 135 mg/dL (<200); Estimated GFR 56.13 (mL/min/1.73m2); Ferritin 69 ng/mL (26-388); Glucose 104 mg/dL (74-106); HDL Cholesterol 47 mg/dL (>or=40); Potassium 3.9 mmol/L (3.5-5.1); Sodium 143 mmol/L (136-145); TSH (W/Ref FT4) 1.49 uIU/mL (0.36-3.74); Triglyceride 176 mg/dL (<150)
[2025-03-05 16:05] LABS: Iron 110 ug/dL (65-175); Total Iron Binding Capacity 360 ug/dL (250-450)
[2025-03-05 22:34] LABS: PSA, Screening 2.7 ng/mL (<=4.5)
[2025-03-06 07:59] LABS: Transferrin 261 mg/dL (201-352)
[2025-03-14 23:30] LABS: Testosterone, Free 42.2 pg/mL (35.0-155.0)
== END 2025-03-05 14:31 | disposition home or self-care (01) ==
LOC: LBO 14:31
PROVIDERS: PCP Nurse Practitioner Family; Visit Provider Nurse Practitioner Family
DX: R23.1 Pallor (principal); R23.2 Flushing; R53.83 Other fatigue; Z13.1 Encounter for screening for diabetes mellitus; Z12.5 Encounter for screening for malignant neoplasm of prostate; Z13.6 Encounter for screening for cardiovascular disorders
CPT/HCPCS: 36415; 80048; 80061; 84153; 84402; 84403; 82728; 83540; 83550; 84443; 84466; 85025